=== PATIENT | female | born 1960 | race Caucasian/White ===

== ENCOUNTER 2018-10-29 12:23 | Emergency (ER) | payer OTHER ==
[~2018-10-29] VITALS: Ht 157.5 cm; Wt 72.6 kg
[~2018-10-29 12:23] MED LIST: ACETAMINOPHEN; ALBIPROI INH; ALBU90I INH; ALBU90OI INH; AMOX500 PO; ATOR10; ATOR20 PO; AZIT250 PO; AZIT500 PO; BENZ100A PO; Bactrim Ds Tab1 EACH PO; CHLO500T PO; CLAR500 PO; CLIN150 PO; CODGUAEL PO; CRUTCH4 USE; CYCL10 PO; Cheratussin AC118 ML PO; FERR325 PO; FLUSAL1005 IH; FURO20 PO; FURO40; GUAI120S1 PO; HYDACE10B PO; HYDACE5 PO; HYDACE7.5 PO; HYDCHL12.5 PO; HYDCHL25 PO; HYDGUAL120 PO; LEVFLO500 PO; LORA1; LOSA25 PO; METO50; METR500; MUPI1NAS; Norco 5-325 Ta1 EACH PO; OXYACE5T; OXYACE7.5T PO; OXYCODONE; POTCHL20ER; POTCHL20ER PO; PRED20 PO; PROC10; PROCODE120 PO; Prednisone20 MG PO; SPACER IH; SULTRIDS PO; TRAM50 PO; Zithromax250 MG PO
[2018-10-29] MEDS ORDERED: LOSA25 PO (13:55)
== END 2018-10-29 13:59 | disposition home or self-care (01) ==
LOC: ER 12:23
DX: S00.83XA Contusion of other part of head, initial encounter (principal); I10 Essential (primary) hypertension; I25.10 Atherosclerotic heart disease of native coronary artery without angina pectoris; J45.909 Unspecified asthma, uncomplicated; Z79.899 Other long term (current) drug therapy; Z87.891 Personal history of nicotine dependence; W18.2XXA Fall in (into) shower or empty bathtub, initial encounter; Y92.002 Bathroom of unspecified non-institutional (private) residence as the place of occurrence of the external cause
CPT/HCPCS: 70450; 99284-25

== ENCOUNTER 2021-02-20 16:34 | Inpatient (IN) | payer OTHER ==
[~2021-02-20] VITALS: Ht 157.5 cm; Wt 71.0 kg
[2021-02-20 17:24] LABS: Base Excess Venous -9.7 mmol/L; Bicarbonate Venous 17.4 mmol/L (24.0-30.0); PCO2 Venous 33.2 mmHg (38-42); PO2 Venous 58.6 mmHg (38-42); pH Blood Venous 7.31 (7.34-7.37)
[2021-02-20 18:41] LABS: BASOPHILS ABSOLUTE AUTO 0.03 K/mm3 (0.00-0.23); BASOPHILS PERCENT AUTO 0 % (0-2); EOSINOPHILS PERCENT AUTO 0 % (0-6); Hematocrit 43.8 % (33.0-51.0); IMMATURE GRAN ABSOLUTE AUTO 0.13 K/mm3 (0.00-0.10); IMMATURE GRAN PERCENT AUTO 1 % (0-1); LYMPHOCYTES ABSOLUTE AUTO 0.76 K/mm3 (0.84-5.20); LYMPHOCYTES PERCENT AUTO 6 % (21-46); MONOCYTES ABSOLUTE AUTO 1.03 K/mm3 (0.16-1.47); MONOCYTES PERCENT AUTO 8 % (4-13); Mean Corpuscular HGB 30.8 pg (26.0-34.0); Mean Corpuscular Volume 96 fL (80-100); Mean Platelet Volume 10.5 fL (9.1-12.4); NEUTROPHILS PERCENT AUTO 85 % (41-73); Platelet Count 263 K/mm3 (150-400); RDW Coefficient Variation 13.6 % (11.7-14.2); RDW Standard Deviation 48.5 fL (35.1-46.3); Red Blood Cell Count 4.55 M/mm3 (3.80-5.20); White Blood Cell Count 13.15 K/mm3 (4.00-11.30)
[2021-02-20 18:53] LABS: International Normalized Ratio 1.06; Prothrombin Time Results 11.4 Sec (9.7-11.5)
[2021-02-20 19:09] LABS: Alanine Aminotransfer (ALT/SGP 48 U/L (12-78); Albumin, Blood 3.3 g/dL (3.4-5.0); Albumin/Globulin Ratio 0.5 (0.8-1.8); Alk Phos 134 U/L (50-136); Anion Gap 10 mmol/L (6-16); Aspartate Aminotrans (AST/SGOT 79 U/L (12-37); Bilirubin, Total 0.6 mg/dL (0.1-1.0); Blood Urea Nitrogen 46 mg/dL (8-24); Bun/Creatinine Ratio 17.8 (12.0-20.0); CO2, Blood 20 mmol/L (21-32); Calcium, Blood 9.1 mg/dL (8.5-10.1); Chloride, Blood 109 mmol/L (98-108); Creatinine, Blood 2.58 mg/dL (0.40-1.00); Ethanol (Alcohol), Blood, Med <3 mg/dL; Globulin, Blood 6.8 g/dL (2.2-4.0); Glomerular Filtration Rate 20 (60-); Glucose, Blood 118 mg/dL (70-99); Potassium, Blood 3.4 mmol/L (3.5-5.5); Sodium, Blood 139 mmol/L (136-145); Total Protein, Blood 10.1 g/dL (6.4-8.2)
[2021-02-20 19:10] LABS: Troponin I <0.015 ng/mL (0.000-0.040)
[2021-02-20 19:38] LABS: Source, Urine Catheter
[2021-02-20 19:42] LABS: Bilirubin, Urine Neg (Neg); Blood, Urine 3+ (Neg); Glucose Qualitative, Urine Neg (Neg); Ketones, Urine Neg (Neg); Leukocyte Esterase, Urine 1+ (Neg); Nitrite, Urine Pos (Neg); Protein, Urine 2+ (Neg); Specific Gravity, Urine 1.015 (1.003-1.022); Urobilinogen, Urine 1+ (Normal)
[2021-02-20 19:46] LABS: Appearance, Urine Hazy (Clear); Color, Urine Yellow (P-Yellow)
[2021-02-20 19:48] LABS: Bacteria Many /hpf; Red Blood Cells, Urine 0-2 /hpf (0-2); Squamous Epithelial Cells Few /hpf (Few); White Blood Cells, Urine 25-50 /hpf (0-5)
[2021-02-20 19:52] LABS: U Amphetamine Screen DETECTED; U Barbituate Screen Not Detected; U Benzodiazapine Screen Not Detected; U Buprenorphine Screen Not Detected; U Cannabinoids Screen Not Detected; U Cocaine Screen Not Detected; U Methadone Screen Not Detected; U Methamphetamine Screen DETECTED; U Opiates Screen DETECTED; U Oxycodone Screen Not Detected; U Phencyclidine Screen Not Detected; U Propoxyphene Screen Not Detected
[2021-02-20 20:56] LABS: CPK Creatine Kinase 122 U/L (26-193); Phosphorus, Blood 5.1 mg/dL (2.5-4.9)
--- NOTE | 2021-02-20 23:48 | NUR ---
ASSUMED PT CARE AT 2210 PT ARRIVED FROM ED ON 4L OF OXYGEN. PT MOANING AND GOANING, BUT NOT FORMING ANY WORDS. DAUGHTER CONCERNED PT HAD A STROKE. PT IS ABLE TO OCCASIONALLY SAY ONE WORD, BUT DOES NOT SPEAK IN ANY SENTENCES. SHE IS UNABLE TO FOLLOW ANY COMMANDS OR DIRECTIONS; THEREFORE, DID NOT ADMINISTER ANY PO MEDICATIONS PER ORDERS. PT STATED SHE HAD TO URINATE UPON ARRIVAL; THEREFORE, PT TRANFSERRED TO BSC. PT VERY DIFFICULT TO GET OFF BSC TO TRANSFER BACK TO BED; THEREFORE, WILL UTILIZE BEDPAN FROM HERE ON OUT. PT ARRIVED WITH ONE 20G TO JAN; NS INFUSING AT 100MLS/HR. PT NOTED TO BE NSR WITH HR 90'S; ST DEPRESSION. HX OF CABG. PT INCREASED TO 5L OF OXYGEN D/T OXYGEN SATURATION AT 90% WITH ORDERS TO MAINTAIN > THAN 92%. BLUETOOTH PROBE ATTACHED D/T PT IN NEGATIVE PRESSURE ROOM WITH DOUBLE DOORS CLOSED. OXYGEN SATURATIONS AT 95% CURRENTLY. SBP 170'S. WILL HAVE TO CALL FOR PRN IV D/T PT NOT BEING ABLE TO SAFELY SWALLOW. OVERALL PT'S SKIN IS INTACT; HOWEVER, BLE'S HAVE SCARS AND SCATTERED SCABS. OVERALL HYGIENE IS POOR WITH POOR SELF CARE. DAUGHTER STATES THEY HAD A HX OF BED BUG INFESTATION AT HOME A WHILE BACK AGO; THEREFORE, HOUSEKEEPING CALLED FOR STICKY MAT OUTSIDE PT'S DOOR. DAUGHTER TO BEDSIDE TO OBTAIN HEALTH HISTORY INFO. DAUGHTER GIVEN VISITING HOUR INFO AND ROOM INFO. CALL LIGHT WITHIN REACH, BUT PT VERY DISORIENTED. WILL CONTINUE FREQUENT ROUNDS AND VISUAL CHECKS.
[2021-02-21 04:35] LABS: Base Excess Venous -7.8 mmol/L; Bicarbonate Venous 18.9 mmol/L (24.0-30.0); PCO2 Venous 33.7 mmHg (38-42); PO2 Venous 91.8 mmHg (38-42); pH Blood Venous 7.34 (7.34-7.37)
[2021-02-21 04:41] LABS: BASOPHILS ABSOLUTE AUTO 0.03 K/mm3 (0.00-0.23); BASOPHILS PERCENT AUTO 0 % (0-2); EOSINOPHILS PERCENT AUTO 0 % (0-6); Hematocrit 34.4 % (33.0-51.0); Hemoglobin 11.3 g/dL (11.5-16.0); IMMATURE GRAN ABSOLUTE AUTO 0.13 K/mm3 (0.00-0.10); IMMATURE GRAN PERCENT AUTO 1 % (0-1); LYMPHOCYTES ABSOLUTE AUTO 1.54 K/mm3 (0.84-5.20); LYMPHOCYTES PERCENT AUTO 10 % (21-46); MONOCYTES ABSOLUTE AUTO 1.25 K/mm3 (0.16-1.47); MONOCYTES PERCENT AUTO 8 % (4-13); Mean Corpuscular HGB 30.5 pg (26.0-34.0); Mean Corpuscular HGB Conc 32.8 g/dL (31.5-36.5); Mean Corpuscular Volume 93 fL (80-100); Mean Platelet Volume 10.8 fL (9.1-12.4); NEUTROPHILS ABSOLUTE AUTO 12.12 K/mm3 (1.96-9.15); NEUTROPHILS PERCENT AUTO 80 % (41-73); Platelet Count 218 K/mm3 (150-400); RDW Coefficient Variation 13.5 % (11.7-14.2); RDW Standard Deviation 46.3 fL (35.1-46.3); Red Blood Cell Count 3.71 M/mm3 (3.80-5.20); White Blood Cell Count 15.07 K/mm3 (4.00-11.30)
--- NOTE | 2021-02-21 04:54 | NUR ---
END OF SHIFT SUMMARY NO SIGNIFICANT CHANGES SINCE LAST ENTRY. PT HAS REMAINED ON 5L OF OXYGEN VIA NC TONIGHT. SHE OPENS EYES SPONTANEOUSLY, MOANS/GROANS, STATES WORDS OCCASIONALLY, AND DOES NOT FOLLOW COMMANDS. VSS, SEE FLOWSHEET. PT HAS BEEN UTILIZING BEDPAN TO URINATE; HOWEVER, WAS NOTED TO BE INCONTINENT DURING MOST RECENT ROUNDS. NS CONTINUES INFUSING AT 150MLS/HR X1 BAG, WHICH IS ALMOST EMPTY. PT REMAINS UNSAFE TO SWALLOW AT THIS TIME D/T DECREASED MENTATION AND THE INABILITY TO FOLLOW DIRECTION. CALL LIGHT IS WITHIN REACH; HOWEVER, PT REQUIRES FREQUENT ROUNDING/VISUAL CHECKS D/T DECREASED MENTATION. WILL CONTINUE TO MONITOR UNTIL REPORT IS HANDED OFF TO ONCOMING RN.
[2021-02-21 05:05] LABS: Albumin, Blood 2.5 g/dL (3.4-5.0); Albumin/Globulin Ratio 0.5 (0.8-1.8); Bilirubin, Total 0.5 mg/dL (0.1-1.0); Bun/Creatinine Ratio 24.8 (12.0-20.0); Calcium, Blood 7.9 mg/dL (8.5-10.1); Creatinine, Blood 1.49 mg/dL (0.40-1.00); Globulin, Blood 5.2 g/dL (2.2-4.0); Potassium, Blood 3.2 mmol/L (3.5-5.5)
[2021-02-21 05:47] LABS: Total Protein, Blood 7.7 g/dL (6.4-8.2)
--- NOTE | 2021-02-21 06:52 | NUR ---
REASSESSMENT BED ALARM WAS NOTED TO BE GOING OFF. UPON ATTEMPTING TO GOWN UP TO ENTER ROOM PT NOTED TO BE CLIMBING OVER SIDE RAIL AND WALKING AROUND ROOM. UPON ENTERING PT NOTED TO HAVE UNSTEADY GAIT WITH HIGH RISK OF FALLING. PT ASSISTED TO BSC TO VOID. SPEECH HAS GOTTEN A LOT BETTER, BUT STILL NOT SPEAKING IN FULL SENTENCES. PT STILL UNABLE TO MAKE HER NEEDS KNOWN AND DOES NOT UTILIZE CALL LIGHT APPROPRIATELY; THEREFORE, DR. HAILE CALLED WITH ORDERS FOR NILSON VEST D/T HIGH FALL RISK.
--- NOTE | 2021-02-21 17:55 | NUR ---
SHIFT ASSESMENT; ASSUMED CARE AT 0700, REPORT FROM VASILE JIMENEZ. AGITATED AT START OF SHIFT. PULLING AT LINES, NILSON VEST IN PLACE. UNABLE TO REDIRECT. BILATERAL WRIST RESTRAINTS PLACED. POWERGLIDE PLACED TO ERNESTO DURING SHIFT. MEDICATED WITH ATIVAN FOR AGITATION. REPOSITIONS SELF IN BED NEEDED. ATTENDS IN PLACE. UP TO BEDSIDE COMMODE X1 WITH 2 PERSON ASSIST. SLEEPS THROUGHOUT MOST OF AFTERNOON, WAKES TO VERBAL STIMULI. O2 WEANED TO RA BY RT. SATS MAINTAINED AT 92-95% ON RA. WILL CONTINUE TO MONITOR AND TREAT UNTIL CHANGE OF SHIFT.
--- NOTE | 2021-02-22 06:21 | NUR ---
SHIFT SUMMARY PT AOX3 WHEN THIS RN AT BEDSIDE WITH PT, WHEN OUT OF ROOM PT HAS DEMONSTRATED SHE FORGETS EDUCATION ON USE OF CALL LIGHT. PT IN RESTRAINTS THROUGH NEARLY ENTIRE SHIFT, THIS RN DC RESTRAINTS WHEN PT ALERT AND REQUESTING TO ROLL ONTO SIDE TO SLEEP. PT CONTRACTED FOR SAFETY. PT SET OFF BED ALARM AND HAD GOTTEN UP TO BED ON HER OWN W/O CALLING. STATED SHE FORGOT HOW TO CALL THE NURSE. THIS RN CALLS DR HAILE FOR NEW RESTRAINT ORDER. PT BACK IN RESTRAINT. BED ALARM ACTIVE. SATS 93-96% ON RA T/O SHIFT. WAS REQUESTING SOMETHING FOR SLEEP BUT SLEPT HEAVILY W/O MED GIVEN. SOME DYSPNEA WITH EXERTION WHEN UP IN ROOM. SALINE LOCKED.
[2021-02-22 09:56] LABS: Hematocrit 34.9 % (33.0-51.0); Hemoglobin 11.5 g/dL (11.5-16.0); Mean Corpuscular HGB 30.3 pg (26.0-34.0); Mean Corpuscular Volume 92 fL (80-100); Mean Platelet Volume 10.9 fL (9.1-12.4); Platelet Count 257 K/mm3 (150-400); RDW Coefficient Variation 13.3 % (11.7-14.2); RDW Standard Deviation 45.1 fL (35.1-46.3); Red Blood Cell Count 3.79 M/mm3 (3.80-5.20); White Blood Cell Count 14.02 K/mm3 (4.00-11.30)
[2021-02-22 10:56] LABS: Albumin, Blood 2.5 g/dL (3.4-5.0); Anion Gap 12 mmol/L (6-16); Blood Urea Nitrogen 33 mg/dL (8-24); CO2, Blood 18 mmol/L (21-32); Calcium, Blood 8.2 mg/dL (8.5-10.1); Chloride, Blood 109 mmol/L (98-108); Creatinine, Blood 0.87 mg/dL (0.40-1.00); Glomerular Filtration Rate >60 (60-); Glucose, Blood 129 mg/dL (70-99); Phosphorus, Blood 1.9 mg/dL (2.5-4.9); Potassium, Blood 2.9 mmol/L (3.5-5.5); Sodium, Blood 139 mmol/L (136-145)
--- NOTE | 2021-02-22 17:17 | NUR ---
SHIFT SUMMARY PT ALERT AND ORIENTED THIS SHIFT. PT ANXIOUS AT TIMES. VS STABLE. O2 SATS REMAIN ABOVE 90% ON RA. BP STABLE. HR HAS BEEN NSR, BUT TELEMETRY HAS BEEN DISCONTINUED. RESTRAINTS REMOVED THIS AFTERNOON AND PT INSTRUCTED TO USE THE CALL LIGHT BEFORE AMBULATING. PT NOT ALWAYS FOLLOWING DIRECTIONS, BUT BED ALARM IS ON FOR SAFETY. WILL CONTINUE TO MONITOR AND REPORT TO ONCOMING RN. CALL LIGHT IN REACH
[2021-02-23 04:25] LABS: Albumin, Blood 2.7 g/dL (3.4-5.0); Anion Gap 11 mmol/L (6-16); Blood Urea Nitrogen 31 mg/dL (8-24); Bun/Creatinine Ratio 35.8 (12.0-20.0); CO2, Blood 18 mmol/L (21-32); Calcium, Blood 8.4 mg/dL (8.5-10.1); Chloride, Blood 110 mmol/L (98-108); Creatinine, Blood 0.87 mg/dL (0.40-1.00); Glomerular Filtration Rate >60 (60-); Glucose, Blood 127 mg/dL (70-99); Phosphorus, Blood 2.3 mg/dL (2.5-4.9); Sodium, Blood 139 mmol/L (136-145)
--- NOTE | 2021-02-23 05:26 | NUR ---
DOCTOR CALL THIS RN CALLS DR HAILE REGARDING PT K 3.0 AND CONTINUED AGITATION FOLLOWING MEDS PER ORDERS AND RESTRAINTS. ORDERS TO BE PLACED BY DR HAILE.
--- NOTE | 2021-02-23 07:20 | NUR ---
SHIFT SUMMARY PT AOX3 AT START OF SHIFT, UP FROM BED W/O CALLING MULTIPLE TIMES, EDUCATED ON USE OF CALL LIGHT. CONTINUED UP IN BED W/O CALLING. SOME DYSPNEA WITH EXERTION WHEN UP FROM BED. LSCTA. SATS GREATER THAN 95% STEADILY THROUGH SHIFT ON RA. PT INCREASINGLY CONFUSED AND STUMBLING OUT OF BED SETTING OFF BED ALARM. MEDICATED WITH ORDERED ATIVAN WITH LITTLE IMPROVEMENT. THIS RN CALLED DR HAILE FOR ORDER FOR RESTRAINTS AND SOMETHING MORE FOR AGITATION IF 2ND DOSE OF PRN ATIVAN HAD NO EFFECT. HALDOL 2.5 MG IV GIVEN AFTER LITTLE EFFECT FOLLOWING SECOND DOSE OF ATIVAN AND PT PULLING AGAINST RESTRAINTS AND CUSSING. PT CONTINUED PULLING AND FIGHTING IN RESTRAINTS. YELLING OUT FOR HER . WHEN THIS RN ATTEMPTED ORIENTING PT, PT WOULD VERBALIZE UNDERSTANDING AND THEN CONTINUE YELLING OUT AND PULLING ON RESTRAINTS. PT APPEARED TACHYPNEIC AFTER CONTINUED FIGHTING AGAINST RESTRAINTS. DR HAILE CALLED AND NOTIFIED OF POTASSIUM AND CONTINUED AGITATION. PT GIVEN ORDERED XANAX, HAD SOME DIFFICULTY WITH LAST HALF OF POTASSIUM, ONLY 30 MEQ GIVEN. PT INCONTINENT OF URINE, LINENS CLEANED AND PT CHANGED INTO CLEAN ATTENDS. PT AGITATED WHEN BACK IN RESTRAINTS. APPEARS SOMNOLENT DESPITE PULLING ON RESTRAINTS. PT HAD ALSO HAD AN EPISODE OF PULLING ON POWERGLIDE LINE D/T CONFUSION. POWERGLIDE IN ERNESTO SALINE LOCKED.
--- NOTE | 2021-02-23 09:18 | NUR ---
PHYSICIAN NOTIFIED PHYSICIAN NOTIFIED OF PT'S CURRENT CONFUSED STATE. PT ATTEMPTING TO CRAWL OUT OF BED, NOT DIRECTABLE. UNABLE TO STATE CURRENT LOCATION. PT UNABLE TO TOLERATE PO MEDICATIONS AT THIS ITME D/T CONFUSED STATE. HOLDING PO MEDICATIONS AT THIS TIME PER PHYSICIAN ORDER. WILL ATTEMPT TO GIVE PT PO MEDICATIONS IF/WHEN PT BECOMES MORE ALERT.
[2021-02-23 09:22] LABS: Hemoglobin 13.6 g/dL (11.5-16.0); Mean Corpuscular HGB 31.1 pg (26.0-34.0); Mean Corpuscular Volume 91 fL (80-100); Mean Platelet Volume 10.7 fL (9.1-12.4); Platelet Count 294 K/mm3 (150-400); RDW Coefficient Variation 13.8 % (11.7-14.2); RDW Standard Deviation 46.8 fL (35.1-46.3); Red Blood Cell Count 4.38 M/mm3 (3.80-5.20); White Blood Cell Count 29.48 K/mm3 (4.00-11.30)
--- NOTE | 2021-02-23 12:20 | NUR ---
FAMILY UPDATE UPDATED PT'S DAUGHTER ON PT. DAUGHTER STATED HER MOM SEEMS TO "WANDER AT NIGHT" IN THEIR HOUSEHOLD. SHE ALSO STATED PT "REPEATS SELF FREQUENTLY."
--- NOTE | 2021-02-23 17:44 | NUR ---
SHIFT SUMMARY PT ALERT AND ORIETED X 1. PT IN SOFT WRIST RESTRAINTS AND NILSON VEST. ORDERED PER PHYSICIAN. RESTRAINT MANAGMENT Q 2. PT OFFERED PO FLUIDS TOLERATED. PT UNABLE TO TOLERATE PO FOOD AT THIS TIME. PT NOT DIRECTABLE. PT INCONTINENT OF URINE AND STOOL. DEPENDS IN PLACE. PT ALERT TO SELF ONLY. PHYSICIAN NOTIFIED THAT PT'S DAUTHER STATED PT "USES METH AND HEROIN." PT MOANS IN RESPONSE TO QUSETIONS. BED ALARM IN PLACE. WILL CONT TO MONITOR UNTIL REPORT GIVEN TO NIGHTSHIFT RN.
--- NOTE | 2021-02-23 18:28 | NUR ---
PHYSICIAN UPDATED PHYSICIAN NOTIFIED OF PT'S INCREASE IN TACHYPNIC STATE. PHYSICIAN ORDERS FOR ABG AND FENTANYL FOR WITHDRAWL/PAIN.
[2021-02-23 19:09] LABS: PCO2 Arterial 18.9 mmHg (35-45); PO2 Arterial 49.3 mmHg (80-100)
--- NOTE | 2021-02-23 19:35 | NUR ---
PHYSICIAN UPDATED PHYSICIAN UPDATED ON PT'S TACHYPNIC STATE. PHYSICIAN AWARE OF PT'S ANXIOUS STATE. MEDICATION ORDERED PER PHYSICIAN FOR POSSIBLE WITHDRAWL/PAIN. WILL INFORM NIGHTSHIFT RN.
[2021-02-24 04:04] LABS: BASOPHILS ABSOLUTE AUTO 0.04 K/mm3 (0.00-0.23); BASOPHILS PERCENT AUTO 0 % (0-2); EOSINOPHILS PERCENT AUTO 0 % (0-6); Hemoglobin 13.8 g/dL (11.5-16.0); IMMATURE GRAN PERCENT AUTO 1 % (0-1); LYMPHOCYTES ABSOLUTE AUTO 1.16 K/mm3 (0.84-5.20); LYMPHOCYTES PERCENT AUTO 5 % (21-46); MONOCYTES ABSOLUTE AUTO 1.97 K/mm3 (0.16-1.47); MONOCYTES PERCENT AUTO 8 % (4-13); Mean Corpuscular HGB 30.9 pg (26.0-34.0); Mean Corpuscular HGB Conc 34.5 g/dL (31.5-36.5); Mean Corpuscular Volume 90 fL (80-100); Mean Platelet Volume 10.5 fL (9.1-12.4); NEUTROPHILS ABSOLUTE AUTO 21.69 K/mm3 (1.96-9.15); NEUTROPHILS PERCENT AUTO 86 % (41-73); Platelet Count 420 K/mm3 (150-400); RDW Coefficient Variation 13.4 % (11.7-14.2); RDW Standard Deviation 43.8 fL (35.1-46.3); Red Blood Cell Count 4.47 M/mm3 (3.80-5.20); White Blood Cell Count 25.16 K/mm3 (4.00-11.30)
[2021-02-24 04:25] LABS: Albumin, Blood 2.9 g/dL (3.4-5.0); Anion Gap 11 mmol/L (6-16); Blood Urea Nitrogen 30 mg/dL (8-24); Bun/Creatinine Ratio 31.7 (12.0-20.0); CO2, Blood 17 mmol/L (21-32); Calcium, Blood 8.9 mg/dL (8.5-10.1); Chloride, Blood 114 mmol/L (98-108); Creatinine, Blood 0.95 mg/dL (0.40-1.00); Glomerular Filtration Rate >60 (60-); Glucose, Blood 130 mg/dL (70-99); Phosphorus, Blood 2.5 mg/dL (2.5-4.9); Potassium, Blood 2.9 mmol/L (3.5-5.5); Sodium, Blood 142 mmol/L (136-145)
--- NOTE | 2021-02-24 06:33 | NUR ---
SHIFT SUMMARY PT RESPONDS WITH MOANS TO VERBAL STIMULI SOMETIMES ANSWERS WITH YES, WILL ONLY OPEN EYES FOR A SECOND. PATIENT NOT ANSWERING APPROPRIETELY. PATIENT KICKING LEGS, SQUIRMING, MOANING, AND RR IN THE 40s AT BEGINNING OF SHIFT AFTER BEING GIVEN HALDOL AND FENTANYL, ONE TIME DOSE OF DILAUDID GIVEN AND PATIENT RELAXED RR IMPROVED TO THE 30s AND SATS WENT UP FROM 93% TO 97% 02 ON RA. PATIENT IN WRIST RESTRAINTS WHICH SHE STILL ATTEMPTS TO GET OUT OF BED. Q2 HOUR TURNS. DID NOT GIVE PO MEDS DUE TO RR AND PATIENT UNABLE TO FOLLOW INSTRUCTIONS SUCH OPENING HER EYES. GAVE ORDERED FENTANYL AND HALDOL WHICH SEEM TO HAVE LITTLE EFFECT WITH AGITATION/DISCOMFORT. 02 SATS CURRENTLY 93% ON RA. CALL LIGHT IN REACH. BED ALARM ON.
--- NOTE | 2021-02-24 08:16 | NUR ---
PHYSICIAN UPDATED PHYSICIAN NOTIFIED THAT PT IS NOT RESPONDING TO VERBAL STIMULI AND NOT DIRECTABLE. PT'S PUPILS CONSTRICT WHEN SHINING PEN LIGHT. PUPILS CONTINUE TO PULSATE WHEN PEN LIGHT REMOVED. NO NEW ORDERS AT THIS TIME.
[2021-02-24 08:44] LABS: PO2 Arterial 58.6 mmHg (80-100); pH Blood Arterial 7.48 (7.35-7.45)
[2021-02-24 08:45] LABS: PCO2 Arterial 19.5 mmHg (35-45)
--- NOTE | 2021-02-24 11:57 | NUR ---
RESTRAINT D/C D/C'ING SOFT WRIST RESTRAINTS. ORDERS TO KEEP NILSON VEST ON AT THIS TIME.
--- NOTE | 2021-02-24 18:35 | NUR ---
SHIFT SUMMARY PT ALERT AND ORIENTED TO SELF. AWARE OF WHEN HE IS AT BEDSIDE. NOT DIRECTABLE. WILL ANSWER IN ONE WORD ANSWERS AT TIMES. PT AGGITATED, ATTEMPTING TO CLIMB OUT OF BED AND PULL AT LINES T/O SHIFT. PT PULLING OFF OXYGEN. PHYSICIAN AWARE. PT NOT ON OXYGEN AT THIS TIME. OXYGEN SATURATION MAINTAINED ABOVE 92% ON RA. PHYSICIAN NOTIFIED OF CRITICAL ABG THIS AM, SEE EHR. INFORMED THIS RN THAT PT'S SISTER AND MOTHER HAD BRAIN TUMORS, PHYSICIAN NOTIFIED. NO NEW ORDERS D/T RECENT CT SCAN. ORDERS CHANGED FOR WITHDRAWL/AGGITATION IN EMAR PER PHYSICIAN. PT NOW ON CAMERA D/T CONFUSED STATE. DEPENDS IN PLACE FOR INCONTINENCE. PT UNABLE TO TOLERATE PO FOOD/PILLS AT THIS TIME. PHYSICIAN AWARE. PT HAS LIMITED PO LIQUID INTAKE D/T CONFUSION/WEAKNESS. PHYSICIAN AWARE. HR STABLE. BP STABLE. NILSON VEST RESTRAINT MANAGED Q 2 HRS. WILL CONT TO MONITOR UNTIL REPORT GIVEN TO NIGHTSHIFT RN.
--- NOTE | 2021-02-25 06:41 | NUR ---
SHIFT SUMMARY PATIENT IS ALERT BUT WILL NOT ANSWER MY QUESTIONS, OCCASIONALLY ANSWERS YES. UNABLE TO REDIRECT. NILSON VEST IN PLACE DUE TO PATIENT BEING HIGH FALL RISK TRYING TO GET OUT OF BED, CAMERA ON. 02 SATS 96% ON 2L NC. RR RANGING FROM 30s-40s. MEDICATED FOR WITHDRAWAL/PAIN PER EMAR. VSS, NO ACUTE CHANGES. CALL LIGHT IN REACH, BED ALARM ON.
[2021-02-25 11:15] LABS: Magnesium, Blood 2.1 mg/dL (1.6-2.4)
[2021-02-25 11:16] LABS: Albumin, Blood 2.8 g/dL (3.4-5.0); Anion Gap 10 mmol/L (6-16); Blood Urea Nitrogen 37 mg/dL (8-24); Bun/Creatinine Ratio 37.5 (12.0-20.0); CO2, Blood 16 mmol/L (21-32); Calcium, Blood 8.9 mg/dL (8.5-10.1); Chloride, Blood 124 mmol/L (98-108); Creatinine, Blood 0.99 mg/dL (0.40-1.00); Glomerular Filtration Rate >60 (60-); Glucose, Blood 138 mg/dL (70-99); Phosphorus, Blood 2.7 mg/dL (2.5-4.9); Potassium, Blood 3.1 mmol/L (3.5-5.5); Sodium, Blood 150 mmol/L (136-145)
--- NOTE | 2021-02-25 13:33 | NUR ---
SHIFT SUMMARY; REPORT TO MANJEET IN ICU FOR IN HOUSE TRANSFER. NILSON WATTST REMAINS INPLACE, CONTINUES TO FLAIL IN BED DESPITE MEDS. RR INCREASED TO 40 BPM, 02 2L VIA NC. PULLS O2 OFF WHEN NOT IN ROOM AND KICKS LEGS UNTIL SAT MONITOR IS UNABLE TO READ. ASSESSED BY DR. CAMPOS. IN HOUSE TRANSFER INITATED. ATTEMPTED TO CALL [facility] FOR A UPDATE [phone], UNABLE TO LEAVE VOICE MAIL DUE TO VOICEMAIL BOX BEING FULL.
--- NOTE | 2021-02-25 14:52 | NUR ---
TO ICU 6 FROM PCU REPORT RECEIVED, PT TO ICU 6 AT 1335, IS FLAILING ARMS AND CONFUSED, MOANING BUT NOT COMMUNICATING EFFECTIVELY, DOES NOT FOLLOW DIRECTION. HR 110'S, BP ELEVATED, SPO2 80'S. O2 INCREASED TO 4L/NC, PRECEDEX INITIATED, BILAT WRIST RESTRAINTS PLACED. PT CALMED SHORTLY AFTER PRECEDEX, SPO2 INCREASED TO 94%, RR 30'S SHALLOW, HR 70'S SINUS. BP BECAME HYPOTENSIVE WITH PRECEDEX, TITRATING TO EFFECT AND TO KEEP BP STABLE. LS WITH EXP WHEEZES IN UPPER LOBES, DIMINISHED T/O, NO COUGH NOTED AT THIS TIME. POWER GLIDE FLUSHES EASILY, ZITHROMAX INFUSING PER ORDERS. IN TO SEE PATIENT, GIVEN UPDATE. PT RESTING WITH EYES CLOSED, RESPONDS TO ORAL CARE BY MOANING AND GRIMACING, NO OTHER ATTEMPTS AT COMMUNICATION MADE. WILL TITRATE PRECEDEX DOWN ABLE.
[2021-02-25 17:27] LABS: PCO2 Arterial 24.9 mmHg (35-45); PO2 Arterial 50.9 mmHg (80-100); pH Blood Arterial 7.39 (7.35-7.45)
--- NOTE | 2021-02-25 18:13 | NUR ---
END OF SHIFT PT RESTED WELL AFTER PRECEDEX, THEN BECAME AGITATED AGAIN THIS EVENING BUT WAS ABLE TO VERBALIZE THAT SHE WAS HAVING PAIN, VERBALIZATIONS REMAIN MINIMAL, PT DOES NOT FOLLOW DIRECTIONS. MEDICATED WITH DILAUDID PER ORDERS, IS NOW RESTING WITH EYES CLOSED, NO RESTLESSNESS NOTED. LS WHEEZY INTERMITTENTLY THIS SHIFT, OCCASIONAL COUGH NOTED. ABG DRAWN, OXYGEN INCREASED TO 6L/OXYMIZER, SPO2 >95% WHILE RESTING. D5W AND POTASSIUM INFUSING PER ORDERS. HR 62, BP HYPOTENSIVE AFTER DILAUDID, PRECEDEX DECREASED TO 0.2MCG. ATTEMPTED PERIPHERAL IV START WITHOUT SUCCESS. RESTRAINTS REMAIN IN PLACE PT IS ANXIOUS AND AGITATED UPON WAKING AND DOES NOT FOLLOW DIRECTION.
--- NOTE | 2021-02-25 19:58 | NUR ---
ASSUMED PT CARE FROM VASILE BURROUGHS AT 1900 PT SLEEPING IN BED. AROUSABLE TO NOXIOUS AND VERBAL STIMULI. UNABLE TO ASSESS MENTATION PT IS NOTED TO ONLY BE MAKING SOUNDS. DOES NOT FOLLOW COMMANDS OR DIRECTIONS; INSTEAD MOANS/GROANS AND OCCASIONALLY WILL SAY ONE WORD. PT APPEARS TO BE VERY RESTLESS IN BED. BILATERAL SOFT WRIST RESTRAINTS REMAIN IN PLACE D/T PT ATTEMPTING TO PICK AND PULL AT LINES. PRECEDEX INFUSING AT 0.2MCG/KG/HR TO POWERGLIDE IN RIGHT UPPER ARM. D5W AT 60MLS/HR. NS TKO WITH PIGGYBACK ANTIBIOTICS. PT HAS AN ATTENDS IN PLACE THAT IS DRY AT THIS TIME. WILL CONTINUE TO ROUND TO ASSESS URINARY AND BOWEL NEEDS. PT IS ON 6L OF OXYGEN VIA OXYMIZER WITH SPO2 95%. VSS, SEE FLOWSHEET. WHEN PT IS AGITATED HER HR IS 60-80'S; HOWEVER, WHEN RESTING ON PRECEDEX SHE IS NARAYAN WITH HR IN THE 50'S. PT IS UNABLE TO MAKE HER NEEDS KNOWN D/T DECREASED LEVEL OF CONSCIOUSNESS. WILL CONTINUE TO ROUND AND REASSESS.
[2021-02-25 21:51] LABS: U Amphetamine Screen Not Detected; U Barbituate Screen Not Detected; U Benzodiazapine Screen DETECTED; U Buprenorphine Screen Not Detected; U Cannabinoids Screen Not Detected; U Cocaine Screen Not Detected; U Methadone Screen Not Detected; U Methamphetamine Screen Not Detected; U Opiates Screen DETECTED; U Oxycodone Screen Not Detected; U Phencyclidine Screen Not Detected; U Propoxyphene Screen Not Detected
[2021-02-25 23:37] LABS: Source, Urine Catheter
[2021-02-25 23:40] LABS: Appearance, Urine Clear (Clear); Bilirubin, Urine Neg (Neg); Blood, Urine 2+ (Neg); Color, Urine Yellow (P-Yellow); Glucose Qualitative, Urine Neg (Neg); Ketones, Urine Neg (Neg); Leukocyte Esterase, Urine Neg (Neg); Nitrite, Urine Neg (Neg); Protein, Urine 2+ (Neg); Urobilinogen, Urine NORM (Normal); pH, Urine 6.5 (5.0-8.0)
--- NOTE | 2021-02-25 23:46 | NUR ---
REASSESSMENT PT WAS HOLLERING OUT FROM ROOM. VERY RESTLESS KICKING LEGS AROUND IN BED. PULLING OUT OXYGEN BY LEANING OVER TO HAND IN RESTRAINT AND PULLING OFF THE O2. PT REMAINS NONVERBAL AND ONLY SAYING, "SHIT", "HELP ME", BUT NOTHING ELSE. UNABLE TO COMMUNICATE WHAT SHE NEEDS. INSTEAD SHE IS PULLING ON RESTRAINTS AND THRASHING AROUND IN BED. PRECEDEX INCREASED FROM 0.5 TO 0.7 MCG/KG/HR. PT CONTINUED BEHAVIORS FOR 10 MINUTES. SARAH BETH MCDANIEL CALLED FOR DOSE ADJUSTMENT WITH ATIVAN. NEW ORDERS TO ADMINISTER ATIVAN 1-2MG Q2 HOURS PRN, ZYPREXA 10MG IM Q6 PRN, PLACEMENT OF URINE CATHETER FOR RETENTION AND TO MONITOR I/O'S, WELL ORDERS TO INCREASE PRECEDEX TO 1.4MCG/KG/HR IF NEEDED. INCREASED PRECEDEX TO 1.4 MCG/KG/HR. STRAIGHT CATH WAS PERFORMED EARLIER IN ORDER TO OBTAIN U-TOX D/T SUSPICIOUS BEHAVIOR; THEREFORE, CATH LEFT IN PLACE TO EMPTY BLADDER TO SEE IF BEHAVIORS WERE RELATED TO RETENTION/INABILITY TO COMMUNICATE URINATION NEEDS. PT MEDICATED WITH ATIVAN 2MG WITH POSITIVE RESULTS; THEREFORE, DECREASED PRECEDEX BACK TO 0.7 MCG/KG/HR. VSS, SEE FLOWSHEET.
[2021-02-25 23:50] LABS: Bacteria Few /hpf; Mucus Light (0-Heavy); Red Blood Cells, Urine 0-2 /hpf (0-2); Squamous Epithelial Cells Few /hpf (Few); White Blood Cells, Urine 0-2 /hpf (0-5)
--- NOTE | 2021-02-26 02:54 | NUR ---
REASSESSMENT PT RESTS WELL FOR SHORT PERIODS OF TIME AFTER BEING MEDICATED WITH ATIVAN OR ZYPREXA PER ORDERS; HOWEVER, VERY SHORT LIVED AND PT WILL WAKE UP HYPERVENTILATING; RESP RATE NOTED TO BE 40-50'S. PT STILL NOTED TO HAVE DECREASED LOC AND NOT FOLLOWING ANY COMMANDS OR DIRECTIONS. CONTINUES TO MOAN/GROAN AND MAKE NOISES. OXYGEN SATURATION DROPPED TO HIGH 80'S ON 7L VIA OXYMIZER. THEREFORE, INCREASED TO 11L AND CALLED RT TO REASSESS RESPIRATORY STATUS. PT APPEARS VERY DRY; ORAL MUCOSA DRY; 300CC TOTAL OF URINE OUTPUT SINCE MARC WAS PLACED AT 2114. WILL CONTINUE TO MONITOR I/O STATUS.
[2021-02-26 05:09] LABS: Hematocrit 38.4 % (33.0-51.0); Hemoglobin 12.8 g/dL (11.5-16.0); Mean Corpuscular HGB 31.1 pg (26.0-34.0); Mean Corpuscular HGB Conc 33.3 g/dL (31.5-36.5); Mean Corpuscular Volume 93 fL (80-100); Mean Platelet Volume 10.6 fL (9.1-12.4); Platelet Count 321 K/mm3 (150-400); RDW Coefficient Variation 14.1 % (11.7-14.2); RDW Standard Deviation 47.9 fL (35.1-46.3); Red Blood Cell Count 4.12 M/mm3 (3.80-5.20); White Blood Cell Count 22.68 K/mm3 (4.00-11.30)
[2021-02-26 05:27] LABS: Albumin, Blood 2.4 g/dL (3.4-5.0); Albumin/Globulin Ratio 0.4 (0.8-1.8); Bilirubin, Total 0.6 mg/dL (0.1-1.0); Bun/Creatinine Ratio 41.6 (12.0-20.0); Calcium, Blood 8.7 mg/dL (8.5-10.1); Creatinine, Blood 1.13 mg/dL (0.40-1.00); Globulin, Blood 5.5 g/dL (2.2-4.0); Potassium, Blood 3.2 mmol/L (3.5-5.5); Total Protein, Blood 7.9 g/dL (6.4-8.2)
--- NOTE | 2021-02-26 05:43 | NUR ---
END OF SHIFT SUMMARY NO SIGNIFICANT CHANGES SINCE LAST ENTRY. PRECEDEX IS AT 0.7 MCG/KG/HR, WHICH APPEARS TO BE EFFECTIVE. PT IS NARAYAN WITH HR 40'S. BP'S STABLE, SEE FLOWSHEET. SHE IS ON 9L OF OXYGEN VIA OXYMIZER WITH SPO2 94%. RR 30'S; HOWEVER, WHEN PT WAKES UP AND BECOMES AGITATED HER RR 40-50'S. PT REMAINS NONVERBAL WHEN SHE IS AWAKE; RATHER, SHE THRASHES IN BED, KICKING HER LEGS, AND FLAILING HER BODY OVER THE BED. UNABLE TO COMMUNICATE NEEDS. MARC REMAINS PATENT AND DRAINING DARK YELLOW URINE TO GRAVITY; 370CC OUT THIS SHIFT. BILATERAL SOFT WRIST RESTRAINTS REMAIN IN PLACE. WILL CONTINUE TO MONITOR UNTIL REPORT IS HANDED OFF TO ONCOMING RN.
--- NOTE | 2021-02-26 07:40 | NUR ---
ASSUMED CARE: PT RESTING IN BED, 9L NC IN MOUTH. TACHYPNEA NOTED WITH RESPIRATIONS IN 40S-50S, MAINTAINING SAT OF MID 90S. RT AT BEDSIDE GIVING BREATHING TX. PRECEDEX GTT IN PLACE AT 0.7 MCG/KG AT THIS TIME. HR CURRENTLY IN 50S
[2021-02-26 10:33] LABS: PCO2 Arterial 27.4 mmHg (35-45); PO2 Arterial 87.5 mmHg (80-100); pH Blood Arterial 7.34 (7.35-7.45)
--- NOTE | 2021-02-26 11:19 | NUR ---
CALL TO DR CAMPOS TO LET HER KNOW OF PT'S AGITATION AND THAT PT WAS UNABLE TO STAY STILL FOR CT SCAN AT THIS TIME. DR INSTRUCTED TO GIVE 1.5MG OF DILAUDID AND GET AN ABG NOW DUE TO PT'S TACHYPNEA. RT AWARE BUT PT WAS TOO AGITATED TO HOLD STILL. AFTER MEDICATING PT BEGAN TO BECOME LESS WRESTLESS. RT PERFORMED ABG AND CALL TO CT THAT PT WAS CALMED DOWN NOW. PT TAKEN TO CT WITH RN AND LABORER DRYING DEPARTMENT TRANSFER IN BED. PT BACK TO ROOM NOW ON 9L WITH SATURATION 97%. TITRATED PRECEDEX DOWN TO 0.5 DUE TO BRADYCARDIA. CURRENT HR AT 56
--- NOTE | 2021-02-26 13:21 | NUR ---
PT'S CAME BY TO SEE HER AND WAS ORIENTED TO VISITING POLICY. STATES THAT PT HAD MAGNOLIA AND MAGNOLIA VACCINE AT THE END OF JANUARY AND STATES THAT HER SYMPTOMS STARTED [address] CAMPOS IS AWARE OF THIS AND CAME TO SEE PT. PT WAS GIVEN A BEDBATH AND ORAL CARE AND BECAME VERY AGITATED WITH STIMULATION. PRECEDEX TITRATED FOR AGITATION
--- NOTE | 2021-02-26 15:36 | NUR ---
DR CAMPOS SPOKE TO DR PUCKETT ABOUT PT TO MAKE HIM AWARE. DR PUCKETT CAME TO SEE PT AND WISHES FOR ABG AT 1700 TO SEE IF STATUS IS WORSENING. RT AWARE. PT JUST RETURNED FROM CT HEAD. REMAINS ON 0.7 MCG OF PRECEDEX WITH WORK OF BREATHING EASED AFTER 1.5 MG OF DILAUDID.
[2021-02-26 16:49] LABS: PCO2 Arterial 26.2 mmHg (35-45); PO2 Arterial 85.9 mmHg (80-100); pH Blood Arterial 7.31 (7.35-7.45)
--- NOTE | 2021-02-26 17:57 | NUR ---
DR PUCKETT CALLED AFTER 2ND ABG DRAWN AND STATES PT IS IN METABOLIC ACIDOSIS WITH UNKNOWN CAUSE. ORDERED DIFFERENT FLUIDS AND CAME TO SEE PT. AWARE THAT PT HAD EPISODE OF AFIB WITH RVR INTO 160S WITH 1 IV PUSH OF LOPRESSOR GIVEN. DR ALSO AWARE THAT ONLY ANTICOAGULATION IS LOVENOX AT THIS TIME. DR PUCKETT REVIEWING CHART. DR CAMPOS AWARE OF DR PUCKETT CONSULT WITH NEW ORDERS
[2021-02-27 01:08] LABS: Hematocrit 36.2 % (33.0-51.0); Hemoglobin 12.2 g/dL (11.5-16.0); Mean Corpuscular HGB 30.6 pg (26.0-34.0); Mean Corpuscular HGB Conc 33.7 g/dL (31.5-36.5); Mean Corpuscular Volume 91 fL (80-100); Mean Platelet Volume 10.6 fL (9.1-12.4); Platelet Count 291 K/mm3 (150-400); RDW Coefficient Variation 13.9 % (11.7-14.2); RDW Standard Deviation 46.5 fL (35.1-46.3); Red Blood Cell Count 3.99 M/mm3 (3.80-5.20); White Blood Cell Count 19.85 K/mm3 (4.00-11.30)
[2021-02-27 01:24] LABS: Albumin, Blood 2.2 g/dL (3.4-5.0); Anion Gap 7 mmol/L (6-16); Blood Urea Nitrogen 34 mg/dL (8-24); Bun/Creatinine Ratio 41.5 (12.0-20.0); CO2, Blood 20 mmol/L (21-32); Calcium, Blood 8.1 mg/dL (8.5-10.1); Chloride, Blood 119 mmol/L (98-108); Creatinine, Blood 0.82 mg/dL (0.40-1.00); Glomerular Filtration Rate >60 (60-); Glucose, Blood 170 mg/dL (70-99); Magnesium, Blood 1.8 mg/dL (1.6-2.4); Phosphorus, Blood 2.8 mg/dL (2.5-4.9); Potassium, Blood 2.8 mmol/L (3.5-5.5); Sodium, Blood 146 mmol/L (136-145)
[2021-02-27 05:51] LABS: PCO2 Arterial 29.7 mmHg (35-45); PO2 Arterial 62.6 mmHg (80-100); pH Blood Arterial 7.45 (7.35-7.45)
--- NOTE | 2021-02-27 06:40 | NUR ---
SHIFT SUMMARY: PT CONTINUED TO HAVE EPISODES OF INCREASED AGITATION & RESTLESSNESS, BECOMING TACHYPNEIC W/ RATE IN THE 40s-50s & HYPOXIC IN THE LOW 80s. @ THESE TIMES PT THRASHES IN THE BED BUT IS UNABLE TO VERBALIZE HER NEEDS & DOES NOT RESPOND TO VERBAL CUES. PRECEDEX DOES NOT APPEAR TO MITIGATE OR WORSEN THESE EPISODES, HOWEVER PRN DILAUDID & ATIVAN HAVE PROVEN VERY HELPFUL IN CALMING HER & SHORTLY AFTER SATS INC TO 97% & RR DEC TO 30s. NO ACUTE NEG CHANGES THIS SHIFT. PT'S DAUGHTER, LAZARA, & FRIEND KEISHA, UPDATED THOROUGHLY ON PT'S IMPROVEMENTS & PLAN FOR MRI TODAY OR TOMORROW. LAZARA PLANS TO COME IN TODAY TO VISIT & DISCUSS PLAN OF CARE W/ MANAGER WEALTH MANAGEMENT.
--- NOTE | 2021-02-27 10:19 | NUR ---
PT IS CONFUSED TO TIME AND PLACE BUT WILL FOLLOW SOME COMMANDS AND WILL VERBALIZE HER NAME. PT IS INCONSISITANT HOWEVER AND HAS EPISODES OF HYPERVENTILATION AND RESTLESNESS FOR WHICH SHE WAS MEDICATED, SEE EMAR AND WILL FOLLOW. AGGRESSIVE ORAL CARE DONE DUE TO CASTS AND LARGE FLOATING CAST IN BACK OF THROAT THAT PT MOSTLY SWALLOWED. WAS ABLE TO VISUALIZE AT ONE POINT BUT UNABLE AT THAT MOMENT TO SX OUT. PREMA BURNETTE ASSISTED TO BETTER VIEW. PT IS TOLEATING 11L OXY. AND WHILE SHE DID DESAT WITH AGGRESSIVE ORAL CARE, SHE RECOVERED QUITE WELL. PT IS A MOUTH BREATHER.
--- NOTE | 2021-02-27 14:51 | NUR ---
echocardiogram complete
--- NOTE | 2021-02-27 17:09 | NUR ---
PT HR AND RR AND BP ELEVATING. DILAUDID GIVEN TO ASSIST. PT WHILE SLEEPING CONT TO HAVE SATS AND RR, HR NOW DOWN. I/O NOTED. FAMILY HAS BEEN IN AND EXPLAINED THE FRAGILE NATURE OF PT CONDITION. SOME UNDERSTANDING VERBALIZED. PT CONT TO BE RESTRAINED TO PROTECT LINES. BICARB AT 75 ML/HR, AND NS TKO. EXTRA ORAL CARE REQUIRED DUE TO ORAL O2. SECOND PG LINE PLACE ON L UA. SEE PRN MEDS FOR THIS SHIFT.
--- NOTE | 2021-02-27 19:30 | NUR ---
ASSUMED CARE OF PT, REPORT RECEIVED. PT IS NOTED RESTING RECLINING IN BED, SATS MAINTAINING WITH OXYGEN TO MOUTH VIA OXYMIZER MASK AT 11 L/MIN, NO VISIBLE INCREASED WORK OF BREATHING WHEN AT REST, RARE COUGH IS NOTED. HRR, SINUS TO SINUS TACH ON MONITOR, PRESSURES MAINTAINING. PT IS NOTED TO BE BECOMING RESTLESS AND PULLING AGAINST RESTRAINTS REACHING FOR OXYMIZER MASK AND CARDIAC MONITORING WIRES. WILL ADMIN ATIVAN.
[2021-02-28 04:30] LABS: BASOPHILS ABSOLUTE AUTO 0.03 K/mm3 (0.00-0.23); BASOPHILS PERCENT AUTO 0 % (0-2); EOSINOPHILS PERCENT AUTO 0 % (0-6); Hemoglobin 10.8 g/dL (11.5-16.0); IMMATURE GRAN ABSOLUTE AUTO 0.37 K/mm3 (0.00-0.10); IMMATURE GRAN PERCENT AUTO 2 % (0-1); LYMPHOCYTES ABSOLUTE AUTO 0.73 K/mm3 (0.84-5.20); LYMPHOCYTES PERCENT AUTO 5 % (21-46); MONOCYTES ABSOLUTE AUTO 0.93 K/mm3 (0.16-1.47); MONOCYTES PERCENT AUTO 6 % (4-13); Mean Corpuscular HGB 30.7 pg (26.0-34.0); Mean Corpuscular HGB Conc 33.8 g/dL (31.5-36.5); Mean Corpuscular Volume 91 fL (80-100); Mean Platelet Volume 10.6 fL (9.1-12.4); NEUTROPHILS ABSOLUTE AUTO 13.67 K/mm3 (1.96-9.15); NEUTROPHILS PERCENT AUTO 87 % (41-73); Platelet Count 341 K/mm3 (150-400); RDW Coefficient Variation 13.7 % (11.7-14.2); RDW Standard Deviation 45.4 fL (35.1-46.3); Red Blood Cell Count 3.52 M/mm3 (3.80-5.20); White Blood Cell Count 15.73 K/mm3 (4.00-11.30)
[2021-02-28 04:48] LABS: Albumin, Blood 2.2 g/dL (3.4-5.0); Anion Gap 8 mmol/L (6-16); Blood Urea Nitrogen 31 mg/dL (8-24); Bun/Creatinine Ratio 32.9 (12.0-20.0); CO2, Blood 25 mmol/L (21-32); Calcium, Blood 8.2 mg/dL (8.5-10.1); Chloride, Blood 115 mmol/L (98-108); Creatinine, Blood 0.94 mg/dL (0.40-1.00); Glomerular Filtration Rate >60 (60-); Glucose, Blood 117 mg/dL (70-99); Phosphorus, Blood 3.1 mg/dL (2.5-4.9); Potassium, Blood 3.1 mmol/L (3.5-5.5); Sodium, Blood 148 mmol/L (136-145)
--- NOTE | 2021-02-28 05:39 | NUR ---
PT RESTS QUIETLY THROUGHOUT SHIFT, OXYGEN WAS INITIALLY ABLE TO BE TITRATED DOWN TO 10 L/MIN VIA OXYMIZER MASK WITH PRONGS PLACED IN PT MOUTH HOWEVER AFTER MIDNOC DOSE OF PRN DILAUDID 1.5 MG IV, OXYGEN REQUIREMENTS INCREASED TO 12 L/MIN, SATS HAVE MAINTAINED GREATER THAN 92% SINCE THAT TIME, PT WAS NOTED TO HAVE FLUCTUATIONS IN OXYGEN SATURATION FROM 92-98% AT THAT FLOW RATE, RESP RATE CONTINUES 20-MID 30S, IS NOTED TO INCREASE WITH PERIODS OF INCREASED RESTLESSNESS, PRN ATIVAN ADMINISTERED X 2 THIS SHIFT. PT IS CURRENTLY RESTING QUIETLY, DOES PULL AGAINST WRIST RESTRAINTS INTERMITTENLTY AND APPEARS TO REACH FOR OXYGEN TUBING WELL CARDIAC MONITORING WIRES. MENTATION HAS IMPROVED THROUGHOUT NOC, PT IS NOW ABLE TO STATE THAT SHE IS IN [place] AND THAT SHE WANTS WATER, SHE RESPONDS TO VERBAL STIMULI AND INTERMITTENTLY FOLLOWS DIRECTIONS TO ASSIST WITH ORAL CARE AND REPOSITIONING. OTHERWISE NO ACUTE CHANGES THIS SHIFT.
--- NOTE | 2021-02-28 07:36 | NUR ---
PT IS SLEEPING WITH VSS, SATS 96 AND REGULAR RESP. WILL FOLLOW AND MONITOR.
--- NOTE | 2021-02-28 10:45 | NUR ---
EXTENSIVE ORAL CARE AGAIN DONE DUE TO VISIBLE CASTS ON SOFT PALATE. PT REMAINS RESTRAINED DUE TO INCONSISTANT RESPONSES AND INABILITY TO FOLLOW COMMMANDS CURRENTLY. HOWEVER DR LIGHT INDICATED PT DID FOLLOW SOME COMMANDS IT REMAINS INCONSISTANT AT BEST. RT WAS CONTACTED AND FACE TENT WAS STARTD AT 40% WITH HUMIDIFICATION IMPROVEMENTS. PT IS BEGINING TO AROUSE AND SPONT MOVE AND WILL FOLLOW UP WITH POTENTIAL FOR SWALLOWING/EATING OG.
--- NOTE | 2021-02-28 12:19 | NUR ---
AFTER MONITORING PT VS WHICH WERE ALL ELEVATING AND THEN ASSESSING MENTAL STATUS AT BED SIDE PT IS NOT A CANDIDATE FOR ORAL FEEDING AT THIS TIME AND NEED MEDICATION FOR ANXIETY, AGITAION AND AMS. SEE EMAR. AFTER HALDOL WAS GIVEN AND RR, HR AND BP LOWERED DOBHOFF FEEDING TUBE WAS PLACE IN THE R NARE EASILY. PT SATS SEEM TO BE STABLE WITH THE AMS AND AGITATION BUT WILL FOLLOW AND EVALUATE FOR POSSIBLY ADDING OTHER MEDS. POST INSERTION CXR FOR DOBHOFF WAS OBTAINED.
--- NOTE | 2021-02-28 12:57 | NUR ---
DOBHOFF FEEDING TUBE CONFIRMED PER DR STONER. AWAITING T.F. ORDERS. TUBE IS AT 50 CM.
--- NOTE | 2021-02-28 14:29 | NUR ---
AFTER ATTEMPTING HALDOL AND ATIVAN TO [employer] BP, HR, RR WILL PROGRESS TO PRECEDEX GTT AND TITRATE. PT CONT TO HAVE AMS, GROANING AND MOVING W/O PURPOSE AND NOT FOLLOWING DIRECTIONS. SATS MAITAINED AT GOOD LEVEL ON 35% FACE TENT. PIVOT 1.5 STARTED AT 25ML PER ORDER.
--- NOTE | 2021-02-28 17:12 | NUR ---
PRECEDEX GTT WAS STARTED ABOUT 1445 AT 0.5 MCG. HR, BP, RR IMPROVED NOTED. SATS REMAIN STABLE ON 35% FACE TENT. I/O NOTED. VSS. ORAL CARE HAS BEEN MUCH IMPORVED WITH HUMIDITY FOR 12 AND 1600 ORAL CARE TIMES. NO FAMILY HAS BEEN IN TO VISIT TODAY UP TO THIS TIME. IVF LR AT 75, NS TKO, PRECEDEX GTT AT 9.1 ML.
--- NOTE | 2021-02-28 17:49 | NUR ---
SON IN TO ROOM AND UPDATED RE PT CURRENT STATUS AND CHANGED. SON IS TAKING MOTHERS BELONGINGS HOME AND SISTER PER PHONE REQUESTED THE SAME.
--- NOTE | 2021-02-28 19:30 | NUR ---
ASSUMED CARE OF PT, REPORT RECEIVED. PT IS NOTED RESTING QUIETLY RECLINING IN BED. DOBHOFF IS NOW NOTED IN PLACE WITH PIVOT 1.5 TUBE FEED AT 25 ML/HR, GOAL RATE IS REPORTED AT 70 ML/HR. OXYGEN IS NOW VIA FACEMASK AND SATS MAINTAINING MID TO UPPER 90S, RESP RATE UPPER 20S TO LOW 30S, NO VISIBLE INCREASED WORK OF BREATHING IS NOTED AT REST. HRR, SINUS NARAYAN TO SINUS RHYTHM IS NOTED UPPER 50S LOW 60S, PRESSURES MAINTAINING. WILL MONITOR.
--- NOTE | 2021-02-28 22:34 | NUR ---
PT RESPIRATIONS NOTED NEAR 40/MIN, SHE IS AWAKE, PULLING AGAINST RESTRAINTS, KICKING FEET ON MATTRESS, AND SCOOTING SELF DOWN IN BED APPEARS TO BE ATTEMPTING TO REACH OXYGEN FACE TENT AND CARDIAC MONITORING LINES. PRECEDEX GTT INCREASED BACK TO 0.5 MCG/KG/HR, WILL MONITOR.
--- NOTE | 2021-03-01 00:53 | NUR ---
PT SATS MAINTAINING 100% WITH OXYGEN VIA FACE TENT AT 28% FIO2, OXYGEN DECREASED TO ROOM AIR AND SATS MAINTAINING 94-95% AT THIS TIME, WILL MONITOR. RESP RATE REMAINS MID 20S TO 30
--- NOTE | 2021-03-01 02:54 | NUR ---
PT HAS INCREASED AGITATION WITH ORAL CARE, KICKING FEET AND SHAKING HEAD PULLING AWAY FROM ORAL SPONGE HOWEVER OPENS MOUTH WHEN INSTRUCTED AND COUGHS WHEN INSTRUCTED. PT IS NOTED TO HAVE DECREASED SATS TO THE HIGH 80S ON ROOM AIR WITH THE INCREASE IN ACTIVITY. OXYGEN VIA NASAL CANNULA AT 2 L/MIN APPLIED. PT ANSWERS "YES" TO PAIN AND "COOL" TO SPEECH IS OTHERWISE MUMBLED AND DIFFICULT TO UNDERSTAND.
[2021-03-01 03:33] LABS: PCO2 Arterial 34.4 mmHg (35-45); PO2 Arterial 56.2 mmHg (80-100); pH Blood Arterial 7.48 (7.35-7.45)
[2021-03-01 03:48] LABS: BASOPHILS ABSOLUTE AUTO 0.02 K/mm3 (0.00-0.23); BASOPHILS PERCENT AUTO 0 % (0-2); EOSINOPHILS PERCENT AUTO 0 % (0-6); Hematocrit 33.2 % (33.0-51.0); IMMATURE GRAN ABSOLUTE AUTO 0.22 K/mm3 (0.00-0.10); IMMATURE GRAN PERCENT AUTO 2 % (0-1); LYMPHOCYTES ABSOLUTE AUTO 0.64 K/mm3 (0.84-5.20); LYMPHOCYTES PERCENT AUTO 6 % (21-46); MONOCYTES ABSOLUTE AUTO 0.75 K/mm3 (0.16-1.47); MONOCYTES PERCENT AUTO 7 % (4-13); Mean Corpuscular HGB 30.7 pg (26.0-34.0); Mean Corpuscular HGB Conc 33.1 g/dL (31.5-36.5); Mean Corpuscular Volume 93 fL (80-100); Mean Platelet Volume 10.4 fL (9.1-12.4); NEUTROPHILS PERCENT AUTO 86 % (41-73); Platelet Count 274 K/mm3 (150-400); RDW Standard Deviation 47.5 fL (35.1-46.3); Red Blood Cell Count 3.58 M/mm3 (3.80-5.20); White Blood Cell Count 11.53 K/mm3 (4.00-11.30)
[2021-03-01 04:03] LABS: Albumin, Blood 2.1 g/dL (3.4-5.0); Anion Gap 5 mmol/L (6-16); Blood Urea Nitrogen 36 mg/dL (8-24); Bun/Creatinine Ratio 47.6 (12.0-20.0); CO2, Blood 26 mmol/L (21-32); Calcium, Blood 8.1 mg/dL (8.5-10.1); Chloride, Blood 115 mmol/L (98-108); Creatinine, Blood 0.76 mg/dL (0.40-1.00); Glomerular Filtration Rate >60 (60-); Glucose, Blood 147 mg/dL (70-99); Magnesium, Blood 2.1 mg/dL (1.6-2.4); Potassium, Blood 3.1 mmol/L (3.5-5.5); Sodium, Blood 146 mmol/L (136-145)
--- NOTE | 2021-03-01 06:16 | NUR ---
PT RESTS QUIETLY THROUGHOUT SHIFT. PRECEDEX WAS TITRATED DOWN TO OFF THIS SHIFT AND PT HAS BEEN TOLERATING WELL, DILAUDID PRN ADMINISTRATION HAS BEEN NOTED TO BE MORE EFFECTIVE WITH CONTROL OF AGITATION/RESTLESSNESS THAN ATIVAN OR PRECEDEX. ORAL CARE DONE FREQUENTLY THIS SHIFT, PT DOES FOLLOW INSTRUCTIONS TO COUGH WITH ORAL CARE AFTER MIDNOC. OXYGEN REQUIREMENTS HAVE DECREASED FROM 28% FIO2 VIA FACE TENT AT BEGINNING OF SHIFT TO 4 L/MIN VIA NASAL CANNULA AT THIS TIME, SATS ARE CURRENTLY 96% AND RESPIRATORY RATE IS MID TO UPPER 20S WHEN AT REST, INCREASES TO LOW 30S WITH INCREASES IN ACTIVITY. PT SPEECH IS MORE EASILY UNDERSTOOD THIS AM, SHE STATES THAT SHE WANTS TO SIT UP AND THAT SHE WANTS A TOMATOE JUICE, SHE LIKES V8 HOWEVER SHE IS UNABLE TO STATE THE DATE OR HER LOCATION. HYDRALAZINE WAS ADMINISTERED X 1 THIS SHIFT FOR SBP GREATER THAN 170, SINUS RHYTHM, RATE CURRENTLY 70S, HEART RATE DID TREND DOWN TO LOW 50S WITH PRECEDEX AND REMAINED LOW TO MID 50S FOR 2 HOURS AFTER PRECEDEX WAS PLACED TO STANDBY.
--- NOTE | 2021-03-01 11:27 | NUR ---
REASSESSMENT PT WAS LETHARGIC THIS MORNING, BARELY WOKE TO VOICE AND ONLY ORIENTED TO SELF. SHE HAS BECOME MORE ALERT THROUGHOUT THE MORNING, ORIENTED TO PERSON, PLACE AND DATE. SHE KEEPS REQUESTING SOMETHING TO EAT OR DRINK. TRIALLED PT WITH SIP OF WATER AND PT STARTED COUGHING. SHE ALSO KEEPS ASKING TO LEAVE DESPITE BEING RMEINDED HOW SICK SHE IS. STILL REQUIRING RESTRAINTS TO KEEP PT FROM PULLING AT LINES. LUNGS HAVE EXPIRATORY WHEEZES. COUGHING UP SMALL AMOUNT OF THICK, PINK/OFF WHITE SPUTUM. SAMPLE SENT TO LAB BY RT. BP STABLE, SR. TOLERATING TUBE FEED. HAD A BM THIS MORNING. MARC WITH CL YELLOW URINE. SPOKE WIT EHR AND UPDATED HIM. COMTINUING TO MONITOR.
--- NOTE | 2021-03-01 16:45 | NUR ---
SHIFT SUMMARY PT HAS BEEN QUITE RESTLESS THIS AFTERNOON, CONSTANTLY MOVING HER LEGS AROUND IN BED AND UP IN THE AIR. SHE IS ORIENTED, BUT FORGETFUL AND STILL PICKS AT THINGS. ATTEMPTED TO GIVE HER A TRIAL OFF OF THE RESTRAINTS, BUT PT QUICKLY STARTED PULLING OFF HER TELE, GRABBING AT IV LINES AND REACHING UP TOWARD HER DOBHOFF. RESTRAINTS REPLACED. HER RR IS IN THE 30S AND 40S, BUT PT IS STILL MAINTAINING SPO2 IN THE 90S ON 2L/NC. ST IN THE 1TEENS, BP ELEVATED THIS AFTERNOON WELL. PRN DIALUDID, ATIVAN AND HYDRALAZINE GIVEN TO TRY AND HELP WITH AGITATION AND BP WITH MILD EFFECTIVENESS. MARC DRAINING CL YELLOW URINE. PT TOLERATING TUBE FEED AT GOAL RATE. PT'S CAME AND VISITED HER. NO OTHER CONCERNS AT THIS TIME. CONTINUE TO MONITOR.
--- NOTE | 2021-03-01 19:30 | NUR ---
ASSUMED CARE OF PT, REPORT RECEIVED. PT IS ALERT AND RESTLESS IN BED USING FEET TO ATTEMPT TO PULL BODY OFF OUT OF BED, PULLING AGAINST BILAT WRIST RESTRAINTS, SPEECH IS MUMBLED AND DIFFICULT TO UNDERSTAND HOWEVER MORE CLEAR THAN PREVIOUS SHIFTS. SHE ANSWERS THAT SHE DOES KNOW WHERE SHE IS HOWEVER REFUSES TO STATE THE NAME OF THIS LOCATION. SHE DOES STATE THAT SHE WANTS SOMETHING TO DRINK. RESP RATE IS NOTED BETWEEN 30 AND 40 WITH THE INCREASED ACTIVITY, AUDIBLE COARSE RESPIRATORY SOUNDS NOTED ON ARRIVAL TO ROOM, CLEAR WITH COUGH, LUNGS WITH CLEAR RIGHT UPPER LOBE, OTHERWISE CRACKLES THROUGHOUT AND DIM BASES BILAT, THESE DO IMPROVE SOMEWHAT WITH COUGH, RESP RATE IS NOTED TO IMPROVE TO 20S WITH DECREASED ACTIVITY. HRR, SINUS TACH IS NOTED ON MONITOR RATE LOW 100S, HYPERTENSION IS NOTED HOWEVER BP CUFF IS IN PLACE TO LEFT WRIST AND PT HAS BEEN ACTIVELY PULLING AGAINST BILAT RESTRAINTS WILL RECHECK, CONTINUES WITHOUT EDEMA, SKIN REMAINS WARM AND DRY WITH BRISK CAP REFILL, PULSES FULL X 4 EXTREMITIES. DOBHOFF REMAINS IN PLACE TO RIGHT NARE, PIVOT 1.5 TUBE FEEDS AT GOAL RATE OF 40 ML/HR WITH WATER 30 ML EVERY 4 HOURS, ACTIVE BOWEL TONES X 4, ABD SOFT, NO GRIMACING WITH PALPATION, ATTENDS IS NOW NOTED IN PLACE. MARC REMAINS IN PLACE WITH CLEAR YELLOW URINE DRAINING. WILL MONITOR. EXTENDED DWELLS IN PLACE TO BILAT UPPER ARMS, DRESSINGS CDI, SITES WNL BILAT. LR INFUSING AT 75 ML/HR, NS AT TKO, AND ZOSYN INFUSING.
[2021-03-02 04:16] LABS: BASOPHILS ABSOLUTE AUTO 0.03 K/mm3 (0.00-0.23); BASOPHILS PERCENT AUTO 0 % (0-2); EOSINOPHILS ABSOLUTE AUTO 0.01 K/mm3 (0.00-0.68); EOSINOPHILS PERCENT AUTO 0 % (0-6); Hematocrit 32.1 % (33.0-51.0); Hemoglobin 10.6 g/dL (11.5-16.0); IMMATURE GRAN ABSOLUTE AUTO 0.44 K/mm3 (0.00-0.10); IMMATURE GRAN PERCENT AUTO 3 % (0-1); LYMPHOCYTES ABSOLUTE AUTO 1.14 K/mm3 (0.84-5.20); LYMPHOCYTES PERCENT AUTO 6 % (21-46); MONOCYTES ABSOLUTE AUTO 0.82 K/mm3 (0.16-1.47); MONOCYTES PERCENT AUTO 5 % (4-13); Mean Corpuscular HGB 30.9 pg (26.0-34.0); Mean Corpuscular Volume 94 fL (80-100); Mean Platelet Volume 11.2 fL (9.1-12.4); NEUTROPHILS ABSOLUTE AUTO 15.27 K/mm3 (1.96-9.15); NEUTROPHILS PERCENT AUTO 86 % (41-73); Platelet Count 255 K/mm3 (150-400); RDW Standard Deviation 47.4 fL (35.1-46.3); Red Blood Cell Count 3.43 M/mm3 (3.80-5.20); White Blood Cell Count 17.71 K/mm3 (4.00-11.30)
[2021-03-02 04:33] LABS: Albumin, Blood 2.1 g/dL (3.4-5.0); Anion Gap 8 mmol/L (6-16); Blood Urea Nitrogen 37 mg/dL (8-24); CO2, Blood 24 mmol/L (21-32); Calcium, Blood 7.8 mg/dL (8.5-10.1); Chloride, Blood 113 mmol/L (98-108); Creatinine, Blood 0.86 mg/dL (0.40-1.00); Glomerular Filtration Rate >60 (60-); Glucose, Blood 131 mg/dL (70-99); Magnesium, Blood 2.1 mg/dL (1.6-2.4); Potassium, Blood 3.3 mmol/L (3.5-5.5); Sodium, Blood 145 mmol/L (136-145)
--- NOTE | 2021-03-02 06:29 | NUR ---
PT CONTINUES TO BE MORE ALERT, SPEECH CONTINUES TO BE MUMBLED AND DIFFICULT TO UNDERSTAND ALTHOUGH THERE ARE MORE WORDS THAT CAN BE UNDERSTOOD. SHE IS FREQUENTLY NOTED TO REQUEST WATER AND COFFEE AFTER ORAL CARE. OXYGEN REQUIREMENTS CONTINUE BETWEEN 2 AND 4 L/MIN, PT IS FOLLOWING SIMPLE INSTRUCTIONS MORE CONSISTENTLY THIS SHIFT, WITH EACH REPOSITIONING SHE HAS BEEN TOLD BY THIS RN TO "TAKE A DEEP BREATH" FOLLOWING WHICH SHE HAS BEEN TOLD TO "COUGH" LUNG SOUNDS ARE IMPROVED POST COUGH HOWEVER CONTINUE COARSE WITH INTERMITTENT WHEEZES, SATS HAVE BEEN NOTED 92-93% WHEN PT IS AWAKE AND RESTLESS AND INCREASE TO 95-96% WHEN PT RETURNS TO REST. PRESSURES CONTINUE TO MAINTAIN, HRR, SINUS RHYTHM IN THE 80-90S WHEN AT REST, INCREASES TO LOW 100S WITH INCREASES IN ACTIVITY. HAS BEEN TOLERATING TUBE FEEDS AT GOAL.
--- NOTE | 2021-03-02 09:00 | NUR ---
ASSUMPTION OF CARE PT RESTING IN BED, AROUSES TO VERBALI STIMULI, ORIENTED TO SELF, LOCATION, YEAR AND FOLLOWING DIRECTIONS, PT FORGETFUL, FREQUENTLY ASKS FOR COFFEE/WATER. PT ON 3.5L PER NC TO MAINTAIN O2 SATURATIONS> 90%, MONITOR SHOWS SINUS RHYTHM WITH HR 70'S-80'S AT REST, INCREASES TO 100-110 WITH ACTIVITY AND NURSING CARE, BP STABLE. DOBHOFF REMAINS IN PLACE WITH TF @ 40ml/hr. MARC REMAINS IN PLACE WITH CLEAR YELLOW OUTPUT. PT ABLE TO MINIMALLY ASSIST WITH TURNS, BILAT SOFT RESTRAINTS IN PLACE.
--- NOTE | 2021-03-02 10:35 | NUR ---
DOBHOFF PLACEMENT DOCUMENTED DOBHOFF PLACEMENT 75, CURRENT PLACEMENT 52, TF PLACED ON HOLD, DISCUSSED WITH DR BRANDON, ORDER FOR ABD XRAY. DR TEE REVEIWED AND CONFIRMED APPROPRIATE DOBHOFF PLACEMENT. TF RESTARTED. PT PLACED IN MITTS AT THIS TIME, BED ALARM ON.
--- NOTE | 2021-03-02 13:04 | NUR ---
DR WEBER TO PTS ROOM, UPDATED ON PTS STATUS- SUPPLEMENTAL OXYGEN DECREASING, HTN, BEDSIDE SWALLOW EVAL. DISCUSSED PAIN MANAGEMENT WITH DR WEBER. PLAN TO WAIT FOR SPEECH THERAPY EVAL BEFORE PLACING NEW DOBHOFF.
--- NOTE | 2021-03-02 15:05 | NUR ---
SHIFT SUMMARY PT REMAINS ORIENTED TO SELF, LOCATION, FOLLOWING DIRECTIONS, BUT VERY RESTLESS AND FORGETFUL. PT CONTINUES TO PULL AT LINES AND RESTRAINTS. O2 SATURATIONS> 90% ON RA, MONITOR SHOWS SINUS RHYTHM WITH HR 80'S-110, PT HYPERTENSIVE, NEW ORDER FOR LABETALOL. PT PULLED DOBHOFF THIS SHIFT, NOT TO BE REPLACED UNTIL SPEECH THERAPY EVALUATION. MARC IN PLACE WITH GOOD URINE OUTPUT. REPORT GIVEN TO MOMO BURNETTE.
--- NOTE | 2021-03-02 15:41 | NUR ---
ASSUMED PT CARE FROM VASILE MENDOZA AT 1430 PT LYING IN BED. DAUGHTER AT BEDSIDE. PT IS ALERT AND ORIENTED AND ABLE TO MAKE NEEDS KNOWN. SL AT THIS TIME. ON ROOM AIR WITH OXYGEN SATURATIONS >90%. MARC CATHETER IS PATENT AND DRAINING YELLOW URINE TO GRAVITY. REMOVED BILATERAL SOFT WRIST RESTRAINTS AT 1445. WRAPPED UP BILATERAL POWERGLIDES D/T PT PULLING OUT DOBHOFF EARLIER. PT REQUESTING WATER D/T DRY MOUTH. EDUCATED BOTH PT AND DAUGHTER THE REASON WHY PT IS ONLY ALLOWED SWABS. DAUGHTER VERY FRUSTRATED AND STARTED RAISING VOICE STATING SHE DIDN'T UNDERSTAND IF SHE WAS DRINKING WATER A WEEK AGO WHY SHE COULDN'T HAVE ANY NOW. INFORMED DAUGHTER THAT PT HAS BEEN HOSPITALIZED FOR ALMOST TWO WEEKS AND HASN'T BEEN USING THOSE MUSCLES AND SHE IS VERY HIGH RISK FOR ASPIRATION. GIVEN HER RECENT RESPIRATORY STATUS ASPIRATING WOULD MOST LIKELY LEAD TO RESPIRATORY DISTRESS AGAIN; THEREFORE, PROLONGING HOSPITAL STAY. DAUGHTER CONTINUED TO ARGUE STATING IT WAS "BS" AND THAT IF SHE COULD SHE WOULD GIVE HER MOM WATER. INFORMED DAUGHTER OF BEDSIDE SWALLOW EVAL PERFORMED BY VASILE MENDOZA WITH PT NOT BEING ABLE TO HOLD FLUIDS IN MOUTH WATER WAS DRIPPING DOWN HER FRONT SIDE, WELL PT COUGHING/CHOKING ON SIPS OF WATER EARLIER. INFORMED DAUGHTER THAT SPEECH THERAPY HAS BEEN ORDERED AND WILL MOST LIKELY ASSESS PT TOMORROW STARTING WITH THICKER LIQUIDS. DAUGHTER CONTINUED TO QUESTION WHY PT COULDN'T HAVE WATER; NOT RECEPTIVE TO EDUCATION AND VERY PASSIVE AGGRESSIVE WITH STATEMENTS/COMMENTS TOWARD STAFF. PT TOLERATED SWABS OKAY, BUT WAS STILL LOSING WATER FROM EACH SIDE OF MOUTH. BED ALARM IN PLACE. DAUGHTER HAS LEFT AND PT IS RESTING AT THIS TIME. WILL CONTINUE TO MONITOR.
--- NOTE | 2021-03-02 18:21 | NUR ---
END OF SHIFT SUMMARY NO SIGNIFICANT CHANGES SINCE LAST ENTRY. PT PLACED IN NILSON VEST D/T ATTEMPTING TO CLIMB OVER SIDERAILS. PT IS ALERT AND ORIENTED WITH CONFUSION AND RESTLESS NOTED AT TIMES. MEDICATED TWICE SINCE ASSUMPTION OF CARE FOR HYPERTENSION. CONTINUES TO PICK AT LINES AND TUBES. WILL CONTINUE TO REASSESS FOR BILATERAL SOFT WRIST RESTRAINTS IF PT ATTEMPTS TO PULL ON MARC OR IV LINES. PT REMAINS ON ROOM AIR WITH OXYGEN SATURATIONS >90%. NSR WITH HR 80'S. WILL CONTINUE TO MONITOR UNTIL REPORT IS HANDED OFF TO ONCOMING RN.
--- NOTE | 2021-03-02 20:54 | NUR ---
ASSUMED CARE FROM VASILE WISDOM. HAVE BEEN IN THE ROOM FOR THE MAJORITY OF THE TIME SINCE REPORT WAS GIVEN. PT IS VERY FIDGETY, SHE GETS VERY SHORT OF BREATH WITH ANY ACTIVITY, SHE IS ABLE TO ANSWER QUESTIONS APPROPRIATELY, IE WHERE IS SHE, WHY IS SHE HERE, UNABLE TO COMPREHEND WHY SHE IS NOT BEING FED OR GIVEN WATER AT THIS TIME. I HAVE EXPLAINED SEVERAL TIMES ABOUT HER INABILITY TO SWALLOW AND HER LUNGS BEING FILLED WITH FLUID AND SHE ACKNOWLEDGES BRIEFLY THEN RETURNS TO ASKING FOR FOOD AND WATER. ORAL CARE HAS BEEN DONE, GREEN SWABS HAVE BEEN USED, MOUTH MOISTURE WELL. SHE CAN'T SEEM TO UNDERSTAND WHAT IS HAPPENING. SHE CONTINUES TO SAY SHE WANTS TO GO HOME TO HER GRANDBABIES AND THAT HER BACK AND FEET HURT. SHE HAS BEEN MEDICATED FOR PAIN. HER BLOOD PRESSURE IS ELEVATED BUT SHE WAS RECENTLY MEDICATED FOR THAT AND IS NOT ABLE TO HAVE ADDITIONAL MEDS, HOPING THE PAIN MEDICATION SETTLES HER DOWN BRIEFLY. SHE HEARS THE TELEVISION AND COMMENTS APPROPRIATELY ON WHAT IS BEING SAID ON THERE, BUT THEN ASKS FOR FOOD AND WATER. CONTINUES TO FIDGET.
--- NOTE | 2021-03-02 22:29 | NUR ---
ROMAN IS VERY FIDGETY AND UNCOMFORTABLE. SHE IS FRUSTRATED. HER BLOOD PRESSURE IS EELVATED, HYDRALAZINE GIVEN, THEN ATIVAN GIVEN FOR PATIENT RESTLESSNESS. SHE THROWS OFF HER COVERS, THEN SAYS SHE'S COLD, SHE WANTS TO GO HOME, SHE WANTS TO EAT. SHE DOESN'T REMEMBER BEING TOLD WHY SHE ISN'T ABLE TO EAT RIGHT NOW. SHE WANTS ICE CHIPS, ENCOURAGING HER TO REST AND NOT FOCUS ON THAT RIGHT NOW. HER BLOOD PRESSURE REMAINS ELEVATED. TRYING TO REASSURE. SWABS GIVEN.
--- NOTE | 2021-03-02 23:18 | NUR ---
PT CONTINUES WITH ELEVATED BLOOD PRESSURE AND BEING UNSETTLED. LEGS ARE ALL OVER THE PLACE, CAN'T SEEM TO SETTLE DOWN. SHE HAS BEEN MEDICATED PER EMR.
--- NOTE | 2021-03-03 02:30 | NUR ---
ROMAN HAS CONTINUED TO BE RESTLESS AND UNSETTLED, BLOOD PRESSURE REMAINS ELEVATED. SHE IS MEDICATED WITH TRANDATE, ATIVAN AND HYDROMORPHONE, SHE IS NOW RESTING. BLOOD PRESSURE COMING DOWN, HEART RATE COMING DOWN, BREATHING IS MORE EVEN AND LESS LABORED.
--- NOTE | 2021-03-03 05:49 | NUR ---
PT WOKE BRIEFLY WHEN I WENT IN THE ROOM, SHE MUMBLED SOME THINGS. RE-ORIENTED HER TO WHERE SHE IS AND WHAT IS GOING ON, THAT SHE WAS ABLE TO SLEEP FOR A COUPLE OF HOURS. SHE HAS RETURNED TO SLEEP.
[2021-03-03 07:01] LABS: BASOPHILS ABSOLUTE AUTO 0.05 K/mm3 (0.00-0.23); BASOPHILS PERCENT AUTO 0 % (0-2); EOSINOPHILS ABSOLUTE AUTO 0.18 K/mm3 (0.00-0.68); EOSINOPHILS PERCENT AUTO 1 % (0-6); Hematocrit 34.2 % (33.0-51.0); Hemoglobin 11.4 g/dL (11.5-16.0); IMMATURE GRAN PERCENT AUTO 3 % (0-1); LYMPHOCYTES ABSOLUTE AUTO 2.88 K/mm3 (0.84-5.20); LYMPHOCYTES PERCENT AUTO 19 % (21-46); MONOCYTES PERCENT AUTO 6 % (4-13); Mean Corpuscular HGB 30.9 pg (26.0-34.0); Mean Corpuscular HGB Conc 33.3 g/dL (31.5-36.5); Mean Corpuscular Volume 93 fL (80-100); Mean Platelet Volume 10.6 fL (9.1-12.4); NEUTROPHILS ABSOLUTE AUTO 10.95 K/mm3 (1.96-9.15); NEUTROPHILS PERCENT AUTO 71 % (41-73); Platelet Count 259 K/mm3 (150-400); RDW Coefficient Variation 13.5 % (11.7-14.2); RDW Standard Deviation 45.8 fL (35.1-46.3); Red Blood Cell Count 3.69 M/mm3 (3.80-5.20); White Blood Cell Count 15.46 K/mm3 (4.00-11.30)
--- NOTE | 2021-03-03 07:33 | NUR ---
ASSUMED CARE: PT RESTING IN BED, NILSON VEST AND WRIST RESTRAINTS IN PLACE. 4L NC IN PLACE. NO ACUTE NEEDS OR CONCERNS AT THIS TIME.
[2021-03-03 07:52] LABS: Anion Gap 7 mmol/L (6-16); Blood Urea Nitrogen 37 mg/dL (8-24); CO2, Blood 25 mmol/L (21-32); Calcium, Blood 8.1 mg/dL (8.5-10.1); Chloride, Blood 110 mmol/L (98-108); Glomerular Filtration Rate 60 (60-); Glucose, Blood 86 mg/dL (70-99); Magnesium, Blood 2.1 mg/dL (1.6-2.4); Phosphorus, Blood 3.5 mg/dL (2.5-4.9); Potassium, Blood 2.8 mmol/L (3.5-5.5); Sodium, Blood 142 mmol/L (136-145); Thyroid Stimulating Hormone 0.305 uIU/mL (0.360-4.800)
[2021-03-03 07:57] LABS: Vancomycin, Trough 20.1 ug/mL (5.0-10.0)
--- NOTE | 2021-03-03 09:04 | NUR ---
PT'S SPEECH IS GARBLED BUT SAID SHE WAS IN HOSPITAL AND RESPONDS TO NAME. CONTINUES TO BE FIDGETING IN BED WITH NILSON AND WRIST RESTRAINTS IN PLACE
[2021-03-03 11:49] LABS: Vancomycin, Trough 16.8 ug/mL (5.0-10.0)
--- NOTE | 2021-03-03 13:54 | NUR ---
DR BRANDON INSTRUCTED ATTEMPT AT DOBHOFF DUE TO PT FAILING SWALLOW EVAL. CN AT BEDSIDE ASSISTING, PT PREMEDICATED AND STILL WAS VERY AGITATED. NURSE ATTEMPTED BOTH NOSTRILS WITH MUCH RESISTANCE, BARELY GOT THE TIP IN AND PT'S NOSE STARTED BLEEDING. DR BRANDON AWARE AND STATES TO NOT REATTEMPT TODAY AND TO REATTEMPT TOMORROW.
--- NOTE | 2021-03-03 16:21 | NUR ---
PT'S S.O. AT BEDSIDE THIS AFTERNOON. WAS GIVEN UPDATE AND EDUCATED THAT PT IS NOT ABLE TO EAT OR DRINK AT THIS TIME PER SPEECH THERAPY EVALUATION. INFORMED S.O. THAT DOBHOFF WAS ATTEMPTED. TOOK PT OUT OF WRIST RESTRAINTS SO HE COULD HOLD HER HAND AND PT BEGAN PULLING AT OXYGEN TUBING AND CAUSING DESATURATIONS. RESTRAINTS REPLACED. ORAL CARE DONE.
--- NOTE | 2021-03-03 18:08 | NUR ---
SHIFT SUMMARY: PT HAS ROUSED T/O SHIFT, TALKING MORE, SPEECH LESS GARBLED BUT STILL CONFUSED WHEN SHE DOES SPEAK. BILATERAL WRIST RESTRAINTS AND NILSON IN PLACE. S.O. CAME BY TO SEE PT AND WAS MADE AWARE OF SWALLOW AND SAFETY PRECAUTIONS WHICH IS WHY PT REMAINS NPO AT THIS TIME. 2L O2 IN PLACE SATTING MID 90S. NO ACUTE NEEDS OR CONCERNS AT THIS TIME.
--- NOTE | 2021-03-03 21:30 | NUR ---
CARE ASSUMPTION PT A&O TO SELF. SPEECH GARBLED/MUMBLED, DIFFICULT TO UNDERSTAND. BP ELEVATED, OTHERWISE VSS. MONITOR SHOWS SR, HR 70's. SPO2 > 92% ON 2L NC. PT NPO. MARC CATH PATENT & DRAINING. NILSON VEST & BILAT SOFT WRIST RESTRAINTS IN PLACE W/ PT ATTEMPTING TO PULL AT LINES.
[2021-03-04 04:24] LABS: BASOPHILS ABSOLUTE AUTO 0.04 K/mm3 (0.00-0.23); BASOPHILS PERCENT AUTO 0 % (0-2); EOSINOPHILS ABSOLUTE AUTO 0.08 K/mm3 (0.00-0.68); EOSINOPHILS PERCENT AUTO 1 % (0-6); Hematocrit 36.4 % (33.0-51.0); Hemoglobin 11.6 g/dL (11.5-16.0); IMMATURE GRAN ABSOLUTE AUTO 0.37 K/mm3 (0.00-0.10); IMMATURE GRAN PERCENT AUTO 2 % (0-1); LYMPHOCYTES ABSOLUTE AUTO 2.26 K/mm3 (0.84-5.20); LYMPHOCYTES PERCENT AUTO 15 % (21-46); MONOCYTES ABSOLUTE AUTO 1.14 K/mm3 (0.16-1.47); MONOCYTES PERCENT AUTO 7 % (4-13); Mean Corpuscular HGB 30.6 pg (26.0-34.0); Mean Corpuscular HGB Conc 31.9 g/dL (31.5-36.5); Mean Corpuscular Volume 96 fL (80-100); Mean Platelet Volume 11.2 fL (9.1-12.4); NEUTROPHILS ABSOLUTE AUTO 11.53 K/mm3 (1.96-9.15); NEUTROPHILS PERCENT AUTO 75 % (41-73); Platelet Count 256 K/mm3 (150-400); RDW Coefficient Variation 13.8 % (11.7-14.2); RDW Standard Deviation 48.2 fL (35.1-46.3); Red Blood Cell Count 3.79 M/mm3 (3.80-5.20); White Blood Cell Count 15.42 K/mm3 (4.00-11.30)
[2021-03-04 05:03] LABS: Anion Gap 8 mmol/L (6-16); Blood Urea Nitrogen 45 mg/dL (8-24); Bun/Creatinine Ratio 45.9 (12.0-20.0); CO2, Blood 24 mmol/L (21-32); Calcium, Blood 8.6 mg/dL (8.5-10.1); Chloride, Blood 114 mmol/L (98-108); Creatinine, Blood 0.98 mg/dL (0.40-1.00); Glomerular Filtration Rate >60 (60-); Glucose, Blood 83 mg/dL (70-99); Potassium, Blood 3.7 mmol/L (3.5-5.5); Sodium, Blood 146 mmol/L (136-145)
--- NOTE | 2021-03-04 06:13 | NUR ---
SHIFT SUMMARY PT MORE ALERT & CONVERSIVE THIS AM THOUGH SPEECH STILL REMAINS GARBLED & MUMBLED. PT ORIENTED TO SELF & LOCATION, FOLLOWING SOME INSTRUCTIONS THIS AM. PT BP ELEVATED, MEDICATED W/ PRN IV HYDRALAZINE X1 & PRN IV LABETELOL X1 THIS SHIFT W/ IMPROVEMENT. VSS. MONITOR SHOWING SB-SR, HR 55-80's. NC TITRATED FROM 2L TO 4L THIS SHIFT FOR SPO2 > 92%. PT RESTLESS & PULLING AT LINES BEGINNING OF SHIFT. PT MEDICATED W/ PRN IV DILAUDID W/ PT THEN RESTFUL & NO LONGER PULLING AT LINES. NILSON VEST & BSWR IN PLACE PER ORDER. MARC CATH PATENT & DRAINING. PT NPO, REQUESTING COFFEE & JUICE THIS AM. PT REMINDED OF NEED TO WAIT FOR ST RE-EVAL. NO OTHER EVENTS.
--- NOTE | 2021-03-04 07:22 | NUR ---
ASSUMED CARE: PT ON ROOM AIR SATTING MID 90S. BILATERAL WRIST RESTRAINTS AND NILSON IN PLACE. PT VERY RESTLESS IN BED. NIGHT RN STATES DILAUDID GIVEN TO PT AND HELPED WITH AGITATION DURING NOC SHIFT.
[2021-03-04 12:29] LABS: Vancomycin, Trough 20.9 ug/mL (5.0-10.0)
--- NOTE | 2021-03-04 19:37 | NUR ---
REPORT CALLED TO VASILE HONG ON MEDICAL FLOOR. PT CURRENTLY GIVEN BREATHING TX BUT ROOM AIR OTHERWISE. NSR ON TELE. NILSON AND WRIST RESTRAINTS IN PLACE. CALL TO PT'S S.O. TO LET HIM KNOW OF TRANSFER TO ROOM 348
--- NOTE | 2021-03-04 20:26 | NUR ---
LEAVING ICU PT TRANSFERED TO MEDICAL FLOOR ROOM 348 AT 2000 VIA ICU BED. MEDICATIONS AND PERSONAL BELONGINGS WITH PT.
--- NOTE | 2021-03-04 21:43 | NUR ---
2010 REPORT RECEIVED FROM VASILE KEARNEY VIA ICU; PT RECEIVED VIA TRANSFER FROM ICU 6; PT TRANSFERRED TO BED X3 ASSIST; PTS BILATERAL SOFT WRIST RESTRAINTS AND MARC REAPPLIED; PT ALERT AND ORIENTED X 1.
--- NOTE | 2021-03-05 02:35 | NUR ---
0159 Pt increasingly agitated and attempting climb OOB and pull at lee catheter while straining at restraints: Lorazapam 2mg IVP given. 0235 PT STILL AGITATED AND UNABLE TO FOLLOW REDIRECTIONS; HALDOL 4MG IVP GIVEN.
--- NOTE | 2021-03-05 04:37 | NUR ---
SHIFT SUMMARY: 60 Y/O FEMALE HAD VERY RESTLESS NIGHT AT TIMES WITH PATIENT VERY CONFUSED AND ATTEMPTING CLIMB OOB, PULLING AT MARC CATHETER AND POWER GLIDES; PT WAS THEN ADVANCED IN RESTRAINTS TO 4 POINT AFTER (ATIVAN 2MG IVP X 2 AND HALDOL 4MG IVP X 1 GIVEN WITH MINIMAL RESULTS); PT ON DROPLET ISOLATION FOR COVID19; BED ALARM APPLIED, BED LOW POSITION WITH CALL LIGHT AT SIDE.
[2021-03-05 05:05] LABS: BASOPHILS ABSOLUTE AUTO 0.06 K/mm3 (0.00-0.23); BASOPHILS PERCENT AUTO 0 % (0-2); EOSINOPHILS ABSOLUTE AUTO 0.15 K/mm3 (0.00-0.68); EOSINOPHILS PERCENT AUTO 1 % (0-6); Hematocrit 40.1 % (33.0-51.0); Hemoglobin 13.2 g/dL (11.5-16.0); IMMATURE GRAN ABSOLUTE AUTO 0.36 K/mm3 (0.00-0.10); IMMATURE GRAN PERCENT AUTO 2 % (0-1); LYMPHOCYTES ABSOLUTE AUTO 2.47 K/mm3 (0.84-5.20); LYMPHOCYTES PERCENT AUTO 11 % (21-46); MONOCYTES ABSOLUTE AUTO 1.47 K/mm3 (0.16-1.47); MONOCYTES PERCENT AUTO 7 % (4-13); Mean Corpuscular HGB 31.1 pg (26.0-34.0); Mean Corpuscular HGB Conc 32.9 g/dL (31.5-36.5); Mean Corpuscular Volume 95 fL (80-100); Mean Platelet Volume 10.7 fL (9.1-12.4); NEUTROPHILS ABSOLUTE AUTO 17.79 K/mm3 (1.96-9.15); NEUTROPHILS PERCENT AUTO 80 % (41-73); Platelet Count 220 K/mm3 (150-400); RDW Coefficient Variation 13.7 % (11.7-14.2); RDW Standard Deviation 47.1 fL (35.1-46.3); Red Blood Cell Count 4.24 M/mm3 (3.80-5.20)
[2021-03-05 05:29] LABS: Albumin, Blood 2.8 g/dL (3.4-5.0); Anion Gap 8 mmol/L (6-16); Blood Urea Nitrogen 53 mg/dL (8-24); Bun/Creatinine Ratio 47.3 (12.0-20.0); CO2, Blood 22 mmol/L (21-32); Calcium, Blood 8.8 mg/dL (8.5-10.1); Chloride, Blood 117 mmol/L (98-108); Creatinine, Blood 1.12 mg/dL (0.40-1.00); Glomerular Filtration Rate 52 (60-); Glucose, Blood 96 mg/dL (70-99); Magnesium, Blood 2.5 mg/dL (1.6-2.4); Phosphorus, Blood 4.2 mg/dL (2.5-4.9); Potassium, Blood 3.5 mmol/L (3.5-5.5); Sodium, Blood 147 mmol/L (136-145)
[2021-03-05 12:05] LABS: Vancomycin, Trough 21.2 ug/mL (5.0-10.0)
--- NOTE | 2021-03-05 19:41 | NUR ---
SHIFT SUMMARY: A&O X 0 AT START OF SHIFT, CONFUSED AND MUMBLING INCOHERENTLY. BILATERAL SOFT WRIST AND ANKLE RESTRAINTS AND NILSON VEST IN PLACE FOR PT SAFETY. TELEMETRY SHOWED SR, RATE 80-90'S. DENIED PAIN. UNABLE TO FEED SELF, NEEDS ASSISTANCE. MARC DRAINING YELLOW/PINK URINE. HAD BEEN PLACED ON 4 L/MIN NC O/N, BUT O2 SAT THIS MORNING > 92% SO O2 REMOVED. ERNESTO POWERGLIDE DOES NOT DRAW; REMOVED. VANCO TROUGH DRAWN FROM JAN POWERGLIDE. BY THE AFTERNOON, PT MUCH MORE ALERT, KNOWS NAME, , AND LOCATION; COOPERATIVE AT TIMES. HAD VISIT FROM SPOUSE.
[2021-03-06 05:53] LABS: Hematocrit 36.9 % (33.0-51.0); Hemoglobin 12.4 g/dL (11.5-16.0); Mean Corpuscular HGB 31.8 pg (26.0-34.0); Mean Corpuscular HGB Conc 33.6 g/dL (31.5-36.5); Mean Corpuscular Volume 95 fL (80-100); Mean Platelet Volume 10.9 fL (9.1-12.4); Platelet Count 228 K/mm3 (150-400); RDW Coefficient Variation 13.4 % (11.7-14.2); RDW Standard Deviation 45.8 fL (35.1-46.3)
--- NOTE | 2021-03-06 05:54 | NUR ---
SHIFT SUMMARY A/O TO SELF ONLY, NON VIOLENT RESTRAINTS IN PLACE FOR SAFETY. QUIETY MUMBLING INCOHERENTLY T/O THE NIGHT WITH SHORT PERIODS OF SLEEP. CURRENTLY ON RA WITH SATS GREATER THAN 92. MARC PATENT AND DRAINING PINKISH/RED URINE. VSS, NO ACUTE CHANGES AT THIS TIME. BED IN LOWEST POSITION WITH CALL LIGHT IN REACH. WILL CONTINUE TO MONITOR AND REPORT TO ONCOMING RN.
[2021-03-06 06:13] LABS: Alanine Aminotransfer (ALT/SGP 60 U/L (12-78); Albumin, Blood 2.9 g/dL (3.4-5.0); Albumin/Globulin Ratio 0.6 (0.8-1.8); Alk Phos 114 U/L (50-136); Anion Gap 8 mmol/L (6-16); Aspartate Aminotrans (AST/SGOT 33 U/L (12-37); Bilirubin, Total 0.7 mg/dL (0.1-1.0); Blood Urea Nitrogen 40 mg/dL (8-24); Bun/Creatinine Ratio 38.1 (12.0-20.0); C-REACTIVE PROTEIN, EXT RANGE 0.821 mg/dL (0.000-0.300); CO2, Blood 18 mmol/L (21-32); Calcium, Blood 8.7 mg/dL (8.5-10.1); Chloride, Blood 116 mmol/L (98-108); Creatinine, Blood 1.05 mg/dL (0.40-1.00); Globulin, Blood 4.7 g/dL (2.2-4.0); Glomerular Filtration Rate 56 (60-); Glucose, Blood 113 mg/dL (70-99); Phosphorus, Blood 2.9 mg/dL (2.5-4.9); Potassium, Blood 3.3 mmol/L (3.5-5.5); Sodium, Blood 142 mmol/L (136-145); Total Protein, Blood 7.6 g/dL (6.4-8.2)
[2021-03-06 16:33] LABS: Vancomycin, Trough 15.1 ug/mL (5.0-10.0)
--- NOTE | 2021-03-06 17:43 | NUR ---
SHIFT SUMMARY: NO ACUTE EVENTS. MORE ALERT TODAY, BETTER ABLE TO FOLLOW DIRECTIONS, BUT STILL IMPULSIVE. IN NILSON VEST WITH 4 SIDE RAILS UP, VERY HIGH FALL RISK. MARC REMOVED, VOIDING PINK URINE VIA ATTENDS OR BSC. TELEMETRY DISCONTINUED. DYSPNEA ON EXERTION, ON ROOM AIR. SKIN INTACT. HAD VISIT FROM DAUGHTER TODAY.
--- NOTE | 2021-03-07 04:13 | NUR ---
SHIFT SUMMARY A/O TO SELF AND FAMILY. SPEECH IS SLOWLY STARTING TO IMPROVE. CONT/INCONT, 2 MAX ASSIST TO BSC WITH FREQUENT CUES NEEDED. NONVIOLENT RESTRAINTS IN PLACE FOR SAFETY. CURRENTLY ON RA WITH SATS GREATER THAN 92. VSS, NO ACUTE CHANGES AT THIS TIME. BED IN LOWEST POSITION WITH CALL LIGHT IN REACH. WILL CONTINUE TO MONITOR AND REPORT TO ONCOMING RN.
[2021-03-07 05:01] LABS: Hematocrit 32.1 % (33.0-51.0); Hemoglobin 10.6 g/dL (11.5-16.0); Mean Corpuscular HGB 31.2 pg (26.0-34.0); Mean Corpuscular Volume 94 fL (80-100); Mean Platelet Volume 11.1 fL (9.1-12.4); Platelet Count 165 K/mm3 (150-400); RDW Coefficient Variation 13.3 % (11.7-14.2); RDW Standard Deviation 45.4 fL (35.1-46.3); White Blood Cell Count 11.93 K/mm3 (4.00-11.30)
[2021-03-07 05:26] LABS: Alanine Aminotransfer (ALT/SGP 59 U/L (12-78); Albumin, Blood 2.3 g/dL (3.4-5.0); Albumin/Globulin Ratio 0.6 (0.8-1.8); Alk Phos 98 U/L (50-136); Anion Gap 7 mmol/L (6-16); Aspartate Aminotrans (AST/SGOT 30 U/L (12-37); Bilirubin, Total 0.6 mg/dL (0.1-1.0); Blood Urea Nitrogen 28 mg/dL (8-24); Bun/Creatinine Ratio 29.7 (12.0-20.0); CO2, Blood 19 mmol/L (21-32); Calcium, Blood 7.7 mg/dL (8.5-10.1); Chloride, Blood 117 mmol/L (98-108); Creatinine, Blood 0.94 mg/dL (0.40-1.00); Globulin, Blood 3.8 g/dL (2.2-4.0); Glomerular Filtration Rate >60 (60-); Glucose, Blood 94 mg/dL (70-99); Phosphorus, Blood 2.8 mg/dL (2.5-4.9); Potassium, Blood 3.3 mmol/L (3.5-5.5); Sodium, Blood 143 mmol/L (136-145); Total Protein, Blood 6.1 g/dL (6.4-8.2)
--- NOTE | 2021-03-07 13:42 | NUR ---
BLACK STOOL PT HAD BM. BLACK IN COLOR. DR. WEBER NOTIFIED. OCCULT STOOL SAMPLE ORDERED.
--- NOTE | 2021-03-07 17:39 | NUR ---
SHIFT SUMMARY PT DROWSY T/O SHIFT, BUT OVERALL MENTATION IS IMPROVING. PT APPETTITE IMPROVING WELL. IV FLUIDS DCED. PT TAKEN OUT OF RESTRAINTS FOR APPROX AN HOUR. PT EDUCATED TO CALL BEFORE SHE GETS UP, WITHIN 15 MINUTES PT TRANSFERED HERSELF TO BED AND ALMOST FELL DOWN. DR. WEBER GAVE VERBAL ORDER TO REAPPLY NILSON VEST. PT AGREEABLE TO PLACING THE VEST BACK ON. BLACK STOOL REPORTED TO DR. WEBER EARLIER TODAY. STOOL SAMPLE STILL NEEDED. NO OTHER ACUTE CHANGES IN ASSESSMENT AT THIS TIME. VS REVIEWED. PT SLEEPING IN BED. ALARM SET. CALL LIGHT IN REACH.
--- NOTE | 2021-03-08 06:11 | NUR ---
SHIFT SUMMARY A/O TO SELF AND FAMILY. PT IS MORE ALERT AND SPEECH CONTINUES TO IMPROVE. SOMETIMES USES CALL LIGHT BUT STILL REMAINS IMPULSIVE AND TRYING TO GET OOB. NILSON IN PLACE FOR SAFETY. CONT/INCONT, UP TO BSC WITH 1 ASSIST. VSS, NO ACUTE CHANGES AT THIS TIME. BED IN LOWEST POSITION WITH CALL LIGHT IN REACH. WILL CONTINUE TO MONITOR AND REPORT TO ONCOMING RN.
[2021-03-08 07:28] LABS: Hematocrit 35.5 % (33.0-51.0); Hemoglobin 11.7 g/dL (11.5-16.0); Mean Corpuscular HGB 31.3 pg (26.0-34.0); Mean Corpuscular Volume 95 fL (80-100); Mean Platelet Volume 11.4 fL (9.1-12.4); Platelet Count 172 K/mm3 (150-400); RDW Coefficient Variation 13.4 % (11.7-14.2); RDW Standard Deviation 45.7 fL (35.1-46.3); Red Blood Cell Count 3.74 M/mm3 (3.80-5.20); White Blood Cell Count 10.33 K/mm3 (4.00-11.30)
[2021-03-08 07:59] LABS: Calcium, Blood 8.5 mg/dL (8.5-10.1); Creatinine, Blood 1.35 mg/dL (0.40-1.00); Percent Saturation 25.4 % (15.0-50.0); Potassium, Blood 3.9 mmol/L (3.5-5.5)
[2021-03-08 09:08] LABS: Vancomycin, Trough 23.3 ug/mL (5.0-10.0)
[2021-03-08 15:44] LABS: Vancomycin, Trough 18.2 ug/mL (5.0-10.0)
--- NOTE | 2021-03-08 18:29 | NUR ---
SHIFT SUMMARY PT A/O X2-3. SHE IS ABLE TO ANSWER ORIENTATION QUESTIONS CORRECTLY BUT IS NOT AWARE TO OWN ABILITY. PT CURRENTLY RESTRAINED DUE TO BEING A HIGH FALL RISK AND VERY IMPULSIVE. THE PT SOMETIMES CALLS APPROPRIATELY BUT MOSTLY CALLS OUT. UP WITH A 1 ASSIST TO THE BA W/FWW AND GB. VOIDING CRANBERRY COLORED URINE. IN ISOLATION FOR COVID. PT REPORTS NO ISSUES WITH BREATHING CURRENTLY. VSS. WILL REPORT TO YOLI BURNETTE.
--- NOTE | 2021-03-09 05:32 | NUR ---
SHIFT SUMMARY AOX3-SELF, FOLLOWING DIRECTIONS, PLACE, MONTH, YR. UNAWARE OWN ABILITY, IMPULSIVE & FORGETFUL @TIMES. IN NILSON FOR SAFETY SINCE PT FORGETS TO CALL FOR HELP & TRYS TO GET OOB ON OWN. HIGH FALL RISK, WEAK GAIT. 1 ASSIST c GB & FWW. IRRITABLE c STAFF @TIMES R/T CURRENT HEALTH CONDITION & NOT BEING ABLE TO GO HOME. DENIES SOB. SPO2 >90% ON RA. REPORTED HEARTBURN, INFORMED REESE & HE ORDERED TUMS. WENT TO GIVE TUMS & PT HAD EMESIS ALLOVER HERSELF & BED. CLEANED & GAVE ZOFRAN/TUMS, NO FURTHER EMESIS OR NAUSEA REPORTED. REPORTS 7/10 PAIN IN LOW BACK, STATES ITS FROM ENDOMETRIOSIS, MEDICATED c TYLENOL. PT STILL HAVING LIGHT CRANBERRY COLOR URINE. CALL LIGHT IN REACH, BED ALARM IN PLACE. WCTM.
--- NOTE | 2021-03-10 05:26 | NUR ---
SHIFT SUMMARY ALERT, ABLE TO MAKE NEEDS KNOWN. COOPERATIVE WITH CARE. CALLS AND ANSWERS QUESTIONS APPROPRIATELY. MULTIPLE REQUESTS FOR STAFF T/O SHIFT. C/O PAIN/DISCOMFORT TO LOW BACK/ABD; MEDICATED PER EMAR. APPEARED TO REST MINIMALLY. UP /c 1P ASSIST TO BSC. NILSON REMAINS IN PLACE FOR SAFTEY AND IMPULSIVITY. VERY EAGER TO RETURN HOME. NO ACUTE CHANGES NOTED OVERNIGHT. BED REMAINED IN LOWEST POSITION; ALARM ON. CALL LIGHT AND BELONGINGS WITHIN REACH. CONTINUE WITH CURRENT PLAN OF CARE. REPORT TO ONCOMING RN.
[2021-03-10 05:28] LABS: Hematocrit 33.9 % (33.0-51.0); Hemoglobin 11.4 g/dL (11.5-16.0); Mean Corpuscular HGB 32.1 pg (26.0-34.0); Mean Corpuscular HGB Conc 33.6 g/dL (31.5-36.5); Mean Corpuscular Volume 96 fL (80-100); Mean Platelet Volume 12.1 fL (9.1-12.4); Platelet Count 172 K/mm3 (150-400); RDW Coefficient Variation 13.9 % (11.7-14.2); RDW Standard Deviation 47.1 fL (35.1-46.3); Red Blood Cell Count 3.55 M/mm3 (3.80-5.20); White Blood Cell Count 10.67 K/mm3 (4.00-11.30)
[2021-03-10 06:07] LABS: Albumin, Blood 2.5 g/dL (3.4-5.0); Albumin/Globulin Ratio 0.6 (0.8-1.8); Bilirubin, Total 0.3 mg/dL (0.1-1.0); Bun/Creatinine Ratio 27.3 (12.0-20.0); Calcium, Blood 8.5 mg/dL (8.5-10.1); Creatinine, Blood 1.39 mg/dL (0.40-1.00); Globulin, Blood 4.3 g/dL (2.2-4.0); Potassium, Blood 4.1 mmol/L (3.5-5.5); Total Protein, Blood 6.8 g/dL (6.4-8.2)
[2021-03-10] MEDS ORDERED: Acetaminophen650 M1 PO (11:16)
[2021-03-10] MEDS ORDERED: OLAN10 PO (11:17)
[2021-03-10] MEDS ORDERED: Catapres0.2 MG PO (11:17)
[2021-03-10] MEDS ORDERED: ASPI81CH PO (11:17)
--- NOTE | 2021-03-10 12:58 | NUR ---
DISCHARGE DISCHARGE INSTRUCTIONS, MEDICATION LIST AND FOLLOW UP APPOINTMENT REVIEWED WITH PT AND HER DAUGHTER. PCP OFFICE WILL CONTACT AND ARRANGE A TELE APPOINTMENT, PER SE WITH HH, THE HH REFERRAL WILL NEED TO COME FROM HER PCP. QUESTIONS/CONCERNS ANSWERED. PT AND HER DAUGHTER VERBALLY INDICATED UNDERSTANDING OF ALL INSTRUCTIONS RECEIVED. PT ESCORTED OUT VIA W/C BY [facility]
== END 2021-03-10 12:35 | disposition home health service (06) | DRG 871 ==
LOC: ER 16:34 → ICUE 21:28 → PCU 21:28 → ICUE 02-25 13:38 → MEDS 03-04 20:10
PROVIDERS: Emergency Medicine; Internal Medicine; Internal Medicine Critical Care Medicine; Nurse Practitioner Acute Care; Pharmacist; Physician Assistant; ADMIT Internal Medicine
PROC: 8E0ZXY6 Isolation (ICD-10-PCS; principal; 2021-02-20)
PROC: XW033E5 Introduction of Remdesivir Anti-infective into Peripheral Vein, Percutaneous Approach, New Technology Group 5 (ICD-10-PCS; 2021-02-20)
PROC: 3E033PZ Introduction of Platelet Inhibitor into Peripheral Vein, Percutaneous Approach (ICD-10-PCS; 2021-02-23)
DX: A41.89 Other specified sepsis (principal); U07.1 COVID-19; J12.82 Pneumonia due to coronavirus disease 2019; G92 Toxic encephalopathy; J96.01 Acute respiratory failure with hypoxia; J15.212 Pneumonia due to Methicillin resistant Staphylococcus aureus; N39.0 Urinary tract infection, site not specified; N17.9 Acute kidney failure, unspecified; E87.2 Acidosis; J44.1 Chronic obstructive pulmonary disease with (acute) exacerbation; J44.0 Chronic obstructive pulmonary disease with (acute) lower respiratory infection; E87.0 Hyperosmolality and hypernatremia; I67.89 Other cerebrovascular disease; A41.51 Sepsis due to Escherichia coli [E. coli]; E87.6 Hypokalemia; E83.39 Other disorders of phosphorus metabolism; R65.20 Severe sepsis without septic shock; I48.0 Paroxysmal atrial fibrillation; N18.30 Chronic kidney disease, stage 3 unspecified; Z91.19 Patient's noncompliance with other medical treatment and regimen; Z78.1 Physical restraint status; I25.10 Atherosclerotic heart disease of native coronary artery without angina pectoris; F15.10 Other stimulant abuse, uncomplicated; I12.9 Hypertensive chronic kidney disease with stage 1 through stage 4 chronic kidney disease, or unspecified chronic kidney disease; F17.210 Nicotine dependence, cigarettes, uncomplicated; Z95.1 Presence of aortocoronary bypass graft; Z79.899 Other long term (current) drug therapy
CPT/HCPCS: 31720; 36415; 36600; 51702; 70450; 70470; 71045; 71260; 80048; 80053; 80069; 80202; 81001; 82140; 82550; 82607; 82728; 82746; 82803; 82947; 83540; 83550; 83605; 83735; 83880; 83930; 84100; 84145; 84295; 84443; 84484; 85025; 85027; 85379; 85610; 85651; 86140; 87040; 87070; 87077; 87086; 87147; 87186; 87205; 92526; 92610; 93005; 93010; 93306; 94640; 94760; 94762; 96365; 96375; 97116; 97162; 97166; 97530; 97535; 99285-25; A9270; C1751; C9113; G0480; J0360; J0456; J0696; J1100; J1170; J1630; J1650; J2060; J2405; J2543; J3010; J3370; J3411; J3480; J7030; J7050; J7060; J7070; J7120; Q9967

== ENCOUNTER 2021-03-18 10:50 | Emergency (ER) | payer OTHER ==
[~2021-03-18] VITALS: Ht 157.5 cm; Wt 68.0 kg
[~2021-03-18 10:50] MED LIST changes: +ASPI81CH PO; +Acetaminophen650 M1 PO; +Catapres0.2 MG PO; +OLAN10 PO
[2021-03-18 11:49] LABS: Source, Urine Voided
[2021-03-18 11:52] LABS: Appearance, Urine Clear (Clear); Bilirubin, Urine Neg (Neg); Blood, Urine Neg (Neg); Color, Urine Yellow (P-Yellow); Glucose Qualitative, Urine Neg (Neg); Ketones, Urine Neg (Neg); Leukocyte Esterase, Urine Neg (Neg); Nitrite, Urine Neg (Neg); Protein, Urine Neg (Neg); Urobilinogen, Urine NORM (Normal)
== END 2021-03-18 12:14 | disposition left against medical advice (07) ==
LOC: ER 10:50
PROVIDERS: Emergency Medicine
DX: N39.0 Urinary tract infection, site not specified (principal); Z53.21 Procedure and treatment not carried out due to patient leaving prior to being seen by health care provider; Z86.16 Personal history of COVID-19
CPT/HCPCS: 81003; P9612

== ENCOUNTER 2021-05-02 13:41 | Emergency (ER) | payer OTHER ==
[~2021-05-02] VITALS: Ht 157.5 cm; Wt 72.6 kg
[2021-05-02 14:57] LABS: SARS-Cov-2 (COVID-19) PCR, MMC POSITIVE (NEGATIVE)
[2021-05-02 15:14] LABS: BASOPHILS ABSOLUTE AUTO 0.14 K/mm3 (0.00-0.23); BASOPHILS PERCENT AUTO 1 % (0-2); EOSINOPHILS ABSOLUTE AUTO 0.28 K/mm3 (0.00-0.68); EOSINOPHILS PERCENT AUTO 2 % (0-6); IMMATURE GRAN ABSOLUTE AUTO 0.37 K/mm3 (0.00-0.10); IMMATURE GRAN PERCENT AUTO 3 % (0-1); LYMPHOCYTES ABSOLUTE AUTO 2.32 K/mm3 (0.84-5.20); LYMPHOCYTES PERCENT AUTO 19 % (21-46); MONOCYTES PERCENT AUTO 11 % (4-13); Mean Corpuscular HGB 31.3 pg (26.0-34.0); Mean Corpuscular HGB Conc 32.6 g/dL (31.5-36.5); Mean Corpuscular Volume 96 fL (80-100); Mean Platelet Volume 10.5 fL (9.1-12.4); NEUTROPHILS ABSOLUTE AUTO 7.55 K/mm3 (1.96-9.15); NEUTROPHILS PERCENT AUTO 63 % (41-73); Platelet Count 301 K/mm3 (150-400); RDW Coefficient Variation 14.6 % (11.7-14.2); RDW Standard Deviation 51.7 fL (35.1-46.3); Red Blood Cell Count 4.47 M/mm3 (3.80-5.20); White Blood Cell Count 11.96 K/mm3 (4.00-11.30)
[2021-05-02 15:46] LABS: Albumin, Blood 2.8 g/dL (3.4-5.0); Albumin/Globulin Ratio 0.5 (0.8-1.8); Bilirubin, Total 1.1 mg/dL (0.1-1.0); Bun/Creatinine Ratio 23.8 (12.0-20.0); Calcium, Blood 9.1 mg/dL (8.5-10.1); Creatinine, Blood 1.05 mg/dL (0.40-1.00); Globulin, Blood 5.7 g/dL (2.2-4.0); Potassium, Blood 4.1 mmol/L (3.5-5.5); Total Protein, Blood 8.5 g/dL (6.4-8.2)
[2021-05-02] MEDS ORDERED: Prednisone50 MG PO (18:03)
[2021-05-02] MEDS ORDERED: AZIT500 PO (18:03)
[2021-05-02] MEDS ORDERED: Catapres-Tts 21 EACH TOP (18:03)
== END 2021-05-02 18:37 | disposition home or self-care (01) ==
LOC: ER 13:41
PROVIDERS: Physician Assistant
DX: U07.1 COVID-19 (principal); J18.9 Pneumonia, unspecified organism; J44.9 Chronic obstructive pulmonary disease, unspecified; J98.01 Acute bronchospasm; I10 Essential (primary) hypertension; I25.10 Atherosclerotic heart disease of native coronary artery without angina pectoris; F17.210 Nicotine dependence, cigarettes, uncomplicated; Z95.1 Presence of aortocoronary bypass graft
CPT/HCPCS: 71046; 80053; 84145; 85025; 93005; 93010; 96361; 96365; 96375; 99285-25; A9270; J2930; J3475; J7030; U0004

== ENCOUNTER 2021-07-11 12:19 | Inpatient (IN) | payer OTHER ==
[~2021-07-11] VITALS: Ht 157.5 cm; Wt 99.4 kg
[~2021-07-11 12:19] MED LIST changes: +AMLO5 PO; +Aspir 8181 MG PO; +Catapres-Tts 21 EACH TOP; +DOXY100 PO; +HYDHCL25 PO; +NARCAN4 M1; +Prednisone50 MG PO
[2021-07-11 14:42] LABS: Source, Urine Clean Catch
[2021-07-11 14:54] LABS: Appearance, Urine Clear (Clear); Bilirubin, Urine Neg (Neg); Blood, Urine Neg (Neg); Color, Urine Yellow (P-Yellow); Glucose Qualitative, Urine Neg (Neg); Ketones, Urine Neg (Neg); Leukocyte Esterase, Urine Neg (Neg); Nitrite, Urine Neg (Neg); Protein, Urine 2+ (Neg); Specific Gravity, Urine 1.015 (1.003-1.022); Urobilinogen, Urine NORM (Normal)
[2021-07-11 15:08] LABS: U Amphetamine Screen DETECTED; U Barbituate Screen Not Detected; U Benzodiazapine Screen Not Detected; U Buprenorphine Screen Not Detected; U Cannabinoids Screen Not Detected; U Cocaine Screen Not Detected; U Methadone Screen Not Detected; U Methamphetamine Screen DETECTED; U Opiates Screen DETECTED; U Oxycodone Screen Not Detected; U Phencyclidine Screen Not Detected; U Propoxyphene Screen Not Detected
[2021-07-11 15:20] LABS: Hematocrit 31.1 % (33.0-51.0); Hemoglobin 10.2 g/dL (11.5-16.0); Mean Corpuscular HGB 29.7 pg (26.0-34.0); Mean Corpuscular HGB Conc 32.8 g/dL (31.5-36.5); Mean Corpuscular Volume 91 fL (80-100); Mean Platelet Volume 11.3 fL (9.1-12.4); NRBC ABSOLUTE 0.18 K/mm3 (0.00-0.02); NRBC Auto 1.1 /100 WBC (0.0-0.2); Platelet Count 201 K/mm3 (150-400); RDW Coefficient Variation 16.2 % (11.7-14.2); RDW Standard Deviation 53.4 fL (35.1-46.3); Red Blood Cell Count 3.43 M/mm3 (3.80-5.20); White Blood Cell Count 16.38 K/mm3 (4.00-11.30)
[2021-07-11 15:35] LABS: Red Blood Cells, Urine 0-2 /hpf (0-2)
[2021-07-11 15:43] LABS: Bacteria Few /hpf; Squamous Epithelial Cells Mod /hpf (Few); Yeast/Fungi Urine Many /hpf
[2021-07-11 15:44] LABS: Albumin, Blood 1.6 g/dL (3.4-5.0); Albumin/Globulin Ratio 0.4 (0.8-1.8); Bilirubin, Total 0.8 mg/dL (0.1-1.0); Bun/Creatinine Ratio 27.5 (12.0-20.0); Calcium, Blood 9.5 mg/dL (8.5-10.1); Creatinine, Blood 2.36 mg/dL (0.40-1.00); Globulin, Blood 4.4 g/dL (2.2-4.0); Potassium, Blood 4.6 mmol/L (3.5-5.5)
[2021-07-11 16:04] LABS: BAND PERCENT MAN 37 % (0-8); BASOPHILS PERCENT MAN 0 % (0-2); EOSINOPHILS ABSOLUTE MAN 0.16 K/mm3 (0.00-0.68); EOSINOPHILS PERCENT MAN 1 % (0-6); LYMPHOCYTES ABSOLUTE MAN 1.31 K/mm3 (0.84-5.20); LYMPHOCYTES PERCENT MAN 8 % (21-46); METAMYELOCYTE ABSOLUTE MAN 0.32 K/mm3 (0.00-0.00); METAMYELOCYTE PERCENT MAN 2 % (0-0); MONOCYTES ABSOLUTE MAN 0.81 K/mm3 (0.16-1.47); MONOCYTES PERCENT MAN 5 % (4-13); NEUTROPHILS ABSOLUTE MAN 13.75 K/mm3 (1.96-9.15); SEG NEUTROPHILS PERCENT MAN 47 % (41-73); TOTAL CELLS COUNTED 100
[2021-07-11] MEDS ORDERED: FLUTICASONE-SA1 EAC2 INH (17:40)
[2021-07-11] MEDS ORDERED: IPRAT-ALBUT 0.5-3 ML NEB (17:40)
[2021-07-11] MEDS ORDERED: PRED20 PO (17:42)
[2021-07-11] MEDS ORDERED: SPIR25 PO (17:42)
--- NOTE | 2021-07-11 20:15 | NUR ---
ASSUME CARE NOTE: PT ARRIVED FROM OR ON VENT. RECEIVED BEDSIDE REPORT FROM VASILE GURROLA. SHE IS STATUS POST OP FROM A EX LAP WITH RIGHT HEMICOLECTOMY WITH WOUND VAC AT 70MMHG WITH AN OPEN ABDOMEN. PT CURRENTLY SATING 96%, HR IN THE 90'S, AND SBP IN 110'S. ETT IS 7.5 23 AT THE LIP. VENT SETTINGS ARE ACVC 12/450/5/100%. STARTING PROPOFOL AT 15MCG/KG/MIN AND NS AT 150ML/HR. SWB RESTRAINTS APPLIED. PUPILS ARE 4MM, EQUAL, ROUND, REACTIVE, AND BRISK. SHE DOES NOT MOVE ANY EXTREMITIES OR FOLLOW COMMANDS. MARC IN PLACE DRAINING YELLOW URINE TO GRAVITY. NGT IN RIGHT NARE IS CLAMPED AND WILL BE PLACED TO L.I.S. PER DR. PUCKETT. SCDS IN PLACE. SHE HAS BITALERAL HEEL PRESSURE ULCERS AND BILAT FEET EDEMA. SEE SHIFT ASSESSMENT FOR DETAILS.
[2021-07-11 23:30] LABS: PCO2 Arterial 41.8 mmHg (35-45); PO2 Arterial 236 mmHg (80-100); pH Blood Arterial 7.31 (7.35-7.45)
[2021-07-12 04:12] LABS: Hematocrit 23.4 % (33.0-51.0); Hemoglobin 7.6 g/dL (11.5-16.0); LYMPHOCYTES ABSOLUTE AUTO 0.32 K/mm3 (0.84-5.20); LYMPHOCYTES PERCENT AUTO 3 % (21-46); MONOCYTES ABSOLUTE AUTO 0.38 K/mm3 (0.16-1.47); MONOCYTES PERCENT AUTO 3 % (4-13); Mean Corpuscular HGB 29.2 pg (26.0-34.0); Mean Corpuscular HGB Conc 32.5 g/dL (31.5-36.5); Mean Corpuscular Volume 90 fL (80-100); Mean Platelet Volume 11.3 fL (9.1-12.4); NRBC ABSOLUTE 0.06 K/mm3 (0.00-0.02); NRBC Auto 0.5 /100 WBC (0.0-0.2); Platelet Count 121 K/mm3 (150-400); RDW Coefficient Variation 16.1 % (11.7-14.2); RDW Standard Deviation 51.7 fL (35.1-46.3); White Blood Cell Count 11.41 K/mm3 (4.00-11.30)
[2021-07-12 04:13] LABS: BASOPHILS PERCENT AUTO 0 % (0-2); EOSINOPHILS ABSOLUTE AUTO 0.01 K/mm3 (0.00-0.68); EOSINOPHILS PERCENT AUTO 0 % (0-6); IMMATURE GRAN ABSOLUTE AUTO 0.05 K/mm3 (0.00-0.10); IMMATURE GRAN PERCENT AUTO 0 % (0-1); NEUTROPHILS ABSOLUTE AUTO 10.65 K/mm3 (1.96-9.15); NEUTROPHILS PERCENT AUTO 93 % (41-73)
[2021-07-12 04:44] LABS: Albumin, Blood 2.4 g/dL (3.4-5.0); Anion Gap 11 mmol/L (6-16); Blood Urea Nitrogen 56 mg/dL (8-24); Bun/Creatinine Ratio 30.6 (12.0-20.0); CO2, Blood 22 mmol/L (21-32); Calcium, Blood 7.7 mg/dL (8.5-10.1); Chloride, Blood 107 mmol/L (98-108); Creatinine, Blood 1.83 mg/dL (0.40-1.00); Glomerular Filtration Rate 28 (60-); Glucose, Blood 138 mg/dL (70-99); Phosphorus, Blood 7.7 mg/dL (2.5-4.9); Potassium, Blood 3.6 mmol/L (3.5-5.5); Sodium, Blood 140 mmol/L (136-145)
[2021-07-12 06:00] LABS: BAND PERCENT MAN 23 % (0-8); BASOPHILS PERCENT MAN 0 % (0-2); EOSINOPHILS PERCENT MAN 0 % (0-6); LYMPHOCYTES ABSOLUTE MAN 0.79 K/mm3 (0.84-5.20); LYMPHOCYTES PERCENT MAN 7 % (21-46); METAMYELOCYTE ABSOLUTE MAN 0.22 K/mm3 (0.00-0.00); METAMYELOCYTE PERCENT MAN 2 % (0-0); MONOCYTES ABSOLUTE MAN 0.22 K/mm3 (0.16-1.47); MONOCYTES PERCENT MAN 2 % (4-13); NEUTROPHILS ABSOLUTE MAN 10.15 K/mm3 (1.96-9.15); SEG NEUTROPHILS PERCENT MAN 66 % (41-73); TOTAL CELLS COUNTED 100
--- NOTE | 2021-07-12 06:42 | NUR ---
SHIFT SUMMARY: PT REMAINS INTUBATED AND SEDATED IN SWB RESTRAINTS. SHE NOW OPENS HER EYES BUT DOES NOT TRACK OR FOLLOW COMMANDS. SHE HAS A WEAK COUGH/GAG REFLEX. VENT SETTINGS ARE NOW: ACVC 12/450/8/45%. VITALS WNL. MARC IS STILL DRAINING CLEAR YELLOW URINE TO GRAVITY. NO BM THIS SHIFT. NGT IS TO LIS. ABDOMINAL WOUND IS STILL TO WOUND VAC AT 70MMHG AND REMAINS INTACT. PROPOFOL IS RUNNING AT 20MCG/KG/MIN WITH NS AT 150ML/HR. WILL REPORT TO ONCOMING RN WHEN AVAILABLE.
--- NOTE | 2021-07-12 08:30 | NUR ---
INITIAL ASSESSMENT PATIENT INTUBATED AND SEDATED. PATIENT RESPONDS TO PAINFUL STIMULI AND ORAL CARE. L ARM MOVES PURPOSEFULLY TOWARD ETT. PATIENT AFEBRILE. PATIENT DOES LOOK UNCOMFORTABLE AT TIMES. WILL SPEAK TO ABOUT GETTING PAIN MED ON BOARD. PATIENT ON ACVC 12, TV 450, PEEP 5 AND 30% FIO2. ETT 7.5 AND 23 AT THE LIP. LUNGS COARSE THROUGHOUT. SCANT AMOUNT OF THICK, MAROON/ MURRAY SPUTUM SUCTIONED FROM ETT. PATIENT IN SR WITH BBB, HR 80S TO 90S. SBP LOW 100S T0 120S. R RADIAL PULSE 2+; ALL OTHER PULSES 1+ IN STRENGTH. PATIENT THIGHS, BLES AND BILAT FEET EDEMATOUS. MIDLINE OPEN ABD WITH WOUND VAC IN PLACE. WOUND VAC SET AT 70 MM HG; SEROSANGUINOUS OUTPUT NOTED. NG TO R NARE TO LIS; SMALL AMOUNT OF COFFEE GROUND DRAINAGE NOTED. ABDOMEN MODERATELY DISTENDED WITH HYPOACTIVE BS NOTED. DATE OF LAST BM UNKNOWN. MARC IN PLACE DRAINING YELLOW COLORED URINE. SCATTERED BRUISES NOTED TO BILAT ARMS. SCATTERED CIRCULAR SCARS NOTED T/O BODY. FINGERS CLUBBED, COOL AND CYANOTIC. PRESSURE ULCERS NOTED TO FEET. PROPOFOL INFUSING AT 30 MCG/ KG/ MINUTE AND NS AT 150 MLS/ HOUR. PATIENT RECEIVING ZOSYN. BED LOW, CALL LIGHT IN REACH. WILL CONTINUE TO MONITOR PATIENT FREQUENTLY THROUGHOUT SHIFT.
--- NOTE | 2021-07-12 12:45 | NUR ---
PATIENT AFEBRILE. PATIENT IS NOW ABLE TO OPEN EYES TO VOICE AND NOD/ SHAKE HEAD TO ANSWER YES AND NO QUESTIONS. PATIENT SHAKES HEAD "NO" WHEN ASKED IF IN PAIN. HR IN THE 80S. SBP 90S TO 120S. NO OTHER ACUTE CHANGES TO NOTE ON AT THIS TIME.
--- NOTE | 2021-07-12 16:15 | NUR ---
SHIFT SUMMARY PATIENT REMAINED INTUBATED AND ON SEDATION. PATIENT REMAINS RESPONDING TO PAIN AND HAS BEEN ANSWERING YES/ NO QUESTIONS WITH NODDING/ SHAKING OF HEAD. PATIENT REMAINED AFEBRILE. PRN DILAUDID GIVEN OT FOR SIGNS OF PAIN. PATIENT HAS SHOOK HEAD "NO" TO PAIN THE REST OF THE DAY. PATIENT HAS REMAINED ON AC 12, TV 450, PEEP 5 AND 30% FIO2. LUNGS REMAINED COARSE. PATIENT REMAINED IN SR, HR 80S TO 90S. SBP 90S TO 120S. PATIENT THIGHS AND BLES REMAIN EDEMATOUS. MIDLINE OPEN ABD REMAINS WITH WOUND VAC. 650 MLS SEROSANGUINOUS DRAINAGE RECORDED THIS AM. R NG REMAINS TO LIS. NO BM THIS SHIFT. MARC DRAINED ADEQUATE AMOUNT OF YELLOW COLORED URINE. NO CHANGES NOTED TO SKIN. PATIENT HAS BEEN REPOSITIONED Q2H. PROPOFOL AT 30 MCG/ KG/ MINUTE. NS DECREASED FROM 150 TO 75 MLS/ HOUR THIS SHIFT. BED LOW, CALL LIGHT IN REACH. REPORT HAS BEEN GIVEN TO ASSUMING NURSE.
--- NOTE | 2021-07-12 19:00 | NUR ---
ASSUME CARE NOTE: PT IS INTUBATED, SEDATED, AND IN SWB RESTRAINTS. VENT SETTINGS ARE: [facility] 12/450/8/45%. ALL VITALS WNL. SHE OPENS HER EYES SPONT AND CAN VERY WEAKLY HERNANDEZ BUT NOT TO COMMAND. PROPOFOL INFUSING AT 40MCG/KG/MIN AND NS AT 75ML/HR. MARC IN PLACE DRAINING CLEAR YELLOW URINE TO GRAVITY. RIGHT NARE NGT IS SET TO L.I.S. AND DRAINING DARK BROWN LIQUID. SHE HAS A MIDLINE OPEN ABDOMINAL WOUND WITH WOUND VAC IN PLACE DRAINING SEROSANGUINEOUS AT 70MM HG. HEEL PROTECTORS AND FOOT BOOTIES IN PLACE WITH SCDS APPLIED TO THE CALVES. SEE SHIFT ASSESSMENT FOR DETAILS.
[2021-07-13 03:51] LABS: BASOPHILS ABSOLUTE AUTO 0.04 K/mm3 (0.00-0.23); BASOPHILS PERCENT AUTO 0 % (0-2); Hematocrit 21.7 % (33.0-51.0); Hemoglobin 7.1 g/dL (11.5-16.0); LYMPHOCYTES ABSOLUTE AUTO 0.65 K/mm3 (0.84-5.20); LYMPHOCYTES PERCENT AUTO 6 % (21-46); MONOCYTES ABSOLUTE AUTO 0.52 K/mm3 (0.16-1.47); MONOCYTES PERCENT AUTO 5 % (4-13); Mean Corpuscular HGB 29.1 pg (26.0-34.0); Mean Corpuscular HGB Conc 32.7 g/dL (31.5-36.5); Mean Corpuscular Volume 89 fL (80-100); Mean Platelet Volume 10.9 fL (9.1-12.4); NRBC ABSOLUTE 0.03 K/mm3 (0.00-0.02); NRBC Auto 0.3 /100 WBC (0.0-0.2); Platelet Count 84 K/mm3 (150-400); RDW Coefficient Variation 16.3 % (11.7-14.2); RDW Standard Deviation 51.6 fL (35.1-46.3); Red Blood Cell Count 2.44 M/mm3 (3.80-5.20); White Blood Cell Count 11.33 K/mm3 (4.00-11.30)
[2021-07-13 03:55] LABS: EOSINOPHILS PERCENT AUTO 0 % (0-6); IMMATURE GRAN PERCENT AUTO 1 % (0-1); NEUTROPHILS ABSOLUTE AUTO 10.02 K/mm3 (1.96-9.15); NEUTROPHILS PERCENT AUTO 88 % (41-73)
[2021-07-13 04:06] LABS: Albumin, Blood 2.1 g/dL (3.4-5.0); Anion Gap 10 mmol/L (6-16); Blood Urea Nitrogen 51 mg/dL (8-24); Bun/Creatinine Ratio 28.7 (12.0-20.0); CO2, Blood 22 mmol/L (21-32); Calcium, Blood 7.7 mg/dL (8.5-10.1); Chloride, Blood 112 mmol/L (98-108); Creatinine, Blood 1.78 mg/dL (0.40-1.00); Glomerular Filtration Rate 29 (60-); Glucose, Blood 112 mg/dL (70-99); Phosphorus, Blood 6.7 mg/dL (2.5-4.9); Potassium, Blood 2.9 mmol/L (3.5-5.5); Sodium, Blood 144 mmol/L (136-145)
--- NOTE | 2021-07-13 06:25 | NUR ---
SHIFT SUMMARY: NO ACUTE OVERNIGHT EVENTS. PATIENT REMAINS INTUBATED, SEDATED, AND IN SWB RESTRAINTS. OPENS EYES SPONT, CAN HERNANDEZ WEAKLY, BUT DOES NOT FOLLOW COMMANDS. NO SEDATION VACATION FOR PLANNED TRIP BACK TO THE O.R. TODAY. VENT SETTINGS ARE THE SAME AT [facility] 12/450/5/30%. ALL VITALS WNL. PROPOFOL INFUSING AT 50MCG/KG/MIN AND NS AT 75ML/HR. MARC REMAINS IN PLACE AND DRAINING YELLOW URINE TO GRAVITY. RIGHT NARE NGT STILL TO LIS. WOUND VAC STILL DRAINING SEROSANGUINOUS OUTPUT. NO BM THIS SHIFT. SHE REMAINED AFEBRILE T/O THE SHIFT. POTASSIUM CAME BACK LOW WITH MORNING MEDS, PER DR. LEIGH 1 TIME REPLACEMENT ORDERED. WILL REPORT TO ONCOMING RN WHEN AVAILABLE.
--- NOTE | 2021-07-13 06:29 | NUR ---
UPDATE: LABS SPOKE WITH DR. LEIGH IN REGARDS TO POTASSIUM OF 2.9. HE ORDERED 40MEQ KCL X 1. ORDERS PLACED.
--- NOTE | 2021-07-13 08:00 | NUR ---
Received report from Noc RN. Patient is intubated and sedated, she has 7.5 ET with vent settings of 12/450/30/5 with sats 100%. Patient has RIS and is infusing NS TKO, NS at 75, Propofol 50 mcg/kg/min. Patient has NG to right nares with light coffe ground/brown output. She has 14Fr Wang draining to gravity yellow urine in adequate amounts. She has mid line incsion with wound vac in place with serosanguinous output, moderate amounts. She has pink heel protectors bilaterally. She is in bilateral soft wrist restraints.
--- NOTE | 2021-07-13 09:29 | NUR ---
Dr Butcher by and will take to surgery after consent from around 12:30 and wants repreat potassium prior. No vent or gtt changes. patient opens eyes to verbal stimuli.
--- NOTE | 2021-07-13 09:32 | NUR ---
Dr Mercado has been in room to assess, no new orders. No vent or gtt setting changes. Propofol set changed out. Repositioned .
[2021-07-13 11:20] LABS: SARS-Cov-2 (COVID-19) PCR, MMC NEGATIVE (NEGATIVE)
--- NOTE | 2021-07-13 12:00 | NUR ---
Patient went to OR after prep from OR Nurse. No changes to vent or gtt settings. Covid test and stat potassium drawn prior to departure. Patient taken off vent and bagged by anesthesia, and RT present.
--- NOTE | 2021-07-13 12:38 | NUR ---
07/13/21 1238 MONICAEUN CAMPOS PT RECEIVING SCHEDULED IV ANTIBIOTICS PER ORDERS. PT NOTED TO HAVE PRE EXISTING MARC CATH PRIOR TO PROCEDURE.
--- NOTE | 2021-07-13 14:35 | NUR ---
Patient arrived back to ICU 13 from OR, hooked to monitor VSS. Placed patient back to NS at 75 ml/hr, Propofol 50 mcg/kg/min, NS TKO. Increased FiO2 45% for sats in high 80. She has midline incsion that was closed and dressing intact that is C/D/I. No new orders.
--- NOTE | 2021-07-13 16:30 | NUR ---
No significant changes with patient and b een resting on swedation well. Surgical site C/D/I and smallspot on dressing that has blood on it. Vent settings 12/450/30/5 and sats 99%. RIJ infusing Propofol at 50 mcg/kg/min, NS at 75 ml/hr and NS TKO. Wang continues to drain to gravity yellow urine adequate amounts. [place] heel protectors remain in place bilateral heels. Medication given per NOV.
--- NOTE | 2021-07-13 18:32 | NUR ---
No significant changes from last note. Patient remains sedated on Propofol at 50 mcg/kg/min. No vent setting changes and sats >95%. CBG 137 and no coverage. VSS, See EMR.
--- NOTE | 2021-07-14 06:21 | NUR ---
END OF SHIFT SUMMARY: - SEE PAPER CHARTING IN PATIENT BINDER - [facility] DOWNTIME OVERNIGHT - CHANGED TO PAPERCHARTING
[2021-07-14 06:42] LABS: BASOPHILS ABSOLUTE AUTO 0.06 K/mm3 (0.00-0.23); BASOPHILS PERCENT AUTO 1 % (0-2); Hematocrit 21.5 % (33.0-51.0); Hemoglobin 7.1 g/dL (11.5-16.0); LYMPHOCYTES ABSOLUTE AUTO 0.86 K/mm3 (0.84-5.20); LYMPHOCYTES PERCENT AUTO 8 % (21-46); MONOCYTES ABSOLUTE AUTO 0.51 K/mm3 (0.16-1.47); MONOCYTES PERCENT AUTO 5 % (4-13); Mean Corpuscular HGB 29.3 pg (26.0-34.0); Mean Corpuscular Volume 89 fL (80-100); NRBC ABSOLUTE 0.03 K/mm3 (0.00-0.02); NRBC Auto 0.3 /100 WBC (0.0-0.2); Platelet Count 61 K/mm3 (150-400); RDW Coefficient Variation 16.1 % (11.7-14.2); RDW Standard Deviation 51.5 fL (35.1-46.3); Red Blood Cell Count 2.42 M/mm3 (3.80-5.20)
[2021-07-14 06:58] LABS: EOSINOPHILS PERCENT AUTO 0 % (0-6); IMMATURE GRAN PERCENT AUTO 1 % (0-1); NEUTROPHILS ABSOLUTE AUTO 9.27 K/mm3 (1.96-9.15); NEUTROPHILS PERCENT AUTO 86 % (41-73)
[2021-07-14 07:03] LABS: Albumin, Blood 1.8 g/dL (3.4-5.0); Anion Gap 11 mmol/L (6-16); Blood Urea Nitrogen 45 mg/dL (8-24); Bun/Creatinine Ratio 27.1 (12.0-20.0); CO2, Blood 19 mmol/L (21-32); Calcium, Blood 7.8 mg/dL (8.5-10.1); Chloride, Blood 117 mmol/L (98-108); Creatinine, Blood 1.66 mg/dL (0.40-1.00); Glomerular Filtration Rate 31 (60-); Glucose, Blood 104 mg/dL (70-99); Phosphorus, Blood 5.5 mg/dL (2.5-4.9); Potassium, Blood 3.1 mmol/L (3.5-5.5); Sodium, Blood 147 mmol/L (136-145)
[2021-07-15 03:47] LABS: Hematocrit 20.6 % (33.0-51.0); Hemoglobin 6.7 g/dL (11.5-16.0); Mean Corpuscular HGB 29.6 pg (26.0-34.0); Mean Corpuscular HGB Conc 32.5 g/dL (31.5-36.5); Mean Corpuscular Volume 91 fL (80-100); Mean Platelet Volume 12.1 fL (9.1-12.4); NRBC ABSOLUTE 0.02 K/mm3 (0.00-0.02); NRBC Auto 0.3 /100 WBC (0.0-0.2); RDW Coefficient Variation 16.6 % (11.7-14.2); Red Blood Cell Count 2.26 M/mm3 (3.80-5.20); White Blood Cell Count 7.96 K/mm3 (4.00-11.30)
[2021-07-15 03:56] LABS: Platelet Count 41 K/mm3 (150-400)
[2021-07-15 04:10] LABS: Alanine Aminotransfer (ALT/SGP 35 U/L (12-78); Albumin, Blood 1.5 g/dL (3.4-5.0); Albumin/Globulin Ratio 0.5 (0.8-1.8); Alk Phos 65 U/L (50-136); Anion Gap 10 mmol/L (6-16); Aspartate Aminotrans (AST/SGOT 27 U/L (12-37); Bilirubin, Total 1.7 mg/dL (0.1-1.0); Blood Urea Nitrogen 43 mg/dL (8-24); Bun/Creatinine Ratio 29.1 (12.0-20.0); CO2, Blood 20 mmol/L (21-32); Calcium, Blood 7.6 mg/dL (8.5-10.1); Chloride, Blood 121 mmol/L (98-108); Creatinine, Blood 1.48 mg/dL (0.40-1.00); Globulin, Blood 3.3 g/dL (2.2-4.0); Glomerular Filtration Rate 36 (60-); Glucose, Blood 122 mg/dL (70-99); Magnesium, Blood 1.5 mg/dL (1.6-2.4); Potassium, Blood 2.8 mmol/L (3.5-5.5); Sodium, Blood 151 mmol/L (136-145); Total Protein, Blood 4.8 g/dL (6.4-8.2); Triglycerides 230 mg/dL (30-160)
--- NOTE | 2021-07-15 05:03 | NUR ---
DR. LEIGH NOTIFIED OF CRITICAL PLATELETES
[2021-07-15 06:02] LABS: BAND PERCENT MAN 19 % (0-8); BASOPHILS PERCENT MAN 0 % (0-2); EOSINOPHILS ABSOLUTE MAN 0.07 K/mm3 (0.00-0.68); EOSINOPHILS PERCENT MAN 1 % (0-6); LYMPHOCYTES ABSOLUTE MAN 1.11 K/mm3 (0.84-5.20); LYMPHOCYTES PERCENT MAN 14 % (21-46); METAMYELOCYTE ABSOLUTE MAN 0.07 K/mm3 (0.00-0.00); METAMYELOCYTE PERCENT MAN 1 % (0-0); MONOCYTES PERCENT MAN 0 % (4-13); MYELOCYTE ABSOLUTE MAN 0.07 K/mm3 (0.00-0.00); MYELOCYTE PERCENT MAN 1 % (0-0); SEG NEUTROPHILS PERCENT MAN 64 % (41-73); TOTAL CELLS COUNTED 100
--- NOTE | 2021-07-15 06:20 | NUR ---
END OF SHIFT SUMMARY: - PATIENT REMAINS UNABLE TO FOLLOW COMMANDS, SHE DOES OPEN EYES AND HOLD GAZE FOR 2 SECONDS AT MOST, SHE DOES NOT TRACK FINGERS OR FOLLOW COMMANDS/SQUEEZE HANDS - REMAINS OFF OF PROPOFOL SINCE 07/14 APPROX 0530, ONLY ONE DOSE OF PRN DILAUDED GIVEN FOR PAIN
--- NOTE | 2021-07-15 08:34 | NUR ---
RESIDENT DR QUIROZ ROUNDED ON PATIENT, REPORTED K+, MAG, H&H, NA+, ORAL WHITE SPOTTED, LEFT FOOT PLANTAR WOUND, AND RESTRAINT ORDER, DR QUIROZ TO ENTER ORDERS, PATIENT RESPONSIVE TO VOICE AND STIMULUS, TRACKS STAFF IN ROOM, PATIENT DID NOT ANSWER YES OR NO TO QUESTIONS
[2021-07-15 08:50] LABS: Hemoglobin 7.4 g/dL (11.5-16.0)
--- NOTE | 2021-07-15 09:55 | NUR ---
EXTUBATED, PATIENT EXTUBATED, TOLERATED WITH EASE, N 4L O2 NOW AT 100%, NG TO LIS, REPOSITIONED, ORAL CARE AND SUCTION, TALISHA RT, DOLORES RN, AND DR CAMPUZANO AT BEDSIDE
[2021-07-15 13:04] LABS: Hematocrit 21.5 % (33.0-51.0); Mean Corpuscular HGB 29.7 pg (26.0-34.0); Mean Corpuscular HGB Conc 32.6 g/dL (31.5-36.5); Mean Corpuscular Volume 91 fL (80-100); RDW Coefficient Variation 16.7 % (11.7-14.2); Red Blood Cell Count 2.36 M/mm3 (3.80-5.20); White Blood Cell Count 9.35 K/mm3 (4.00-11.30)
[2021-07-15 13:35] LABS: Platelet Count 37 K/mm3 (150-400)
[2021-07-15 15:24] LABS: BAND PERCENT MAN 19 % (0-8); BASOPHILS PERCENT MAN 0 % (0-2); EOSINOPHILS ABSOLUTE MAN 0.09 K/mm3 (0.00-0.68); EOSINOPHILS PERCENT MAN 1 % (0-6); LYMPHOCYTES ABSOLUTE MAN 0.65 K/mm3 (0.84-5.20); LYMPHOCYTES PERCENT MAN 7 % (21-46); METAMYELOCYTE ABSOLUTE MAN 0.18 K/mm3 (0.00-0.00); METAMYELOCYTE PERCENT MAN 2 % (0-0); MONOCYTES ABSOLUTE MAN 0.28 K/mm3 (0.16-1.47); MONOCYTES PERCENT MAN 3 % (4-13); NEUTROPHILS ABSOLUTE MAN 8.13 K/mm3 (1.96-9.15); SEG NEUTROPHILS PERCENT MAN 68 % (41-73); TOTAL CELLS COUNTED 100
--- NOTE | 2021-07-15 15:53 | NUR ---
DR CAMPUZANO ROUNDED REPORTED PATIENT FAILED THE SWALLOW EVAL, NPO, WILL RE EVALUATE IN AM
[2021-07-15 17:07] LABS: Magnesium, Blood 2.1 mg/dL (1.6-2.4); Potassium, Blood 2.8 mmol/L (3.5-5.5)
--- NOTE | 2021-07-15 19:14 | NUR ---
EXTUBATED AT 0955 TODAY, TOLERATED WITH EASE, PATIENT ALERT, OREIENTED TO PERSON AND PLACE, LS DIM BASES, ABD DRSG NO CHANGE, MARC TO GRAVITY, MOANS OUT FOR PAIN MEDS, MEDICATED DIRECTED, RELAYED TO PM RN
--- NOTE | 2021-07-15 21:00 | NUR ---
IV THIAMINE HELD D/T DOUBLE DOSE (THIAMINE ADDED TO TPN)
--- NOTE | 2021-07-16 00:37 | NUR ---
PATIENT PULLED OUT OF RESTRAINT AND PULLED OUT NG
--- NOTE | 2021-07-16 03:36 | NUR ---
DR. LEE NOTIFIED: - THIAMINE IV ORDER PLACED, CPN/TPN ALSO CONTAINES THIAMINE: NEVAEH TO D/C THIAMINE IV ORDER - PER PHARMACY: FOLIC ACID IS ABLE TO BE ADDED TO CPN/TPN: PER DR. JESUS HERRING TO ADD - FLUIDS CHANGED FROM NS TO D5 BUT NS STILL IN ORDER LIST: D/C NS ORDER - PATIENT PULLED NG: NEVAEH TO KEEP NG OUT, DO NOT REINSERT, CONTINUE WITH SWALLOW STUDY IN A.M./SPEECH THERAPY - SBP CONSISTENTLY OVER 160: ORDER HYDRALAZINE PRN
[2021-07-16 04:55] LABS: Hematocrit 23.1 % (33.0-51.0); Hemoglobin 7.6 g/dL (11.5-16.0); Mean Corpuscular HGB 29.1 pg (26.0-34.0); Mean Corpuscular HGB Conc 32.9 g/dL (31.5-36.5); Mean Corpuscular Volume 89 fL (80-100); Mean Platelet Volume 12.7 fL (9.1-12.4); NRBC ABSOLUTE 0.02 K/mm3 (0.00-0.02); NRBC Auto 0.3 /100 WBC (0.0-0.2); RDW Coefficient Variation 16.9 % (11.7-14.2); RDW Standard Deviation 53.2 fL (35.1-46.3); Red Blood Cell Count 2.61 M/mm3 (3.80-5.20); White Blood Cell Count 7.36 K/mm3 (4.00-11.30)
[2021-07-16 05:10] LABS: Platelet Count 39 K/mm3 (150-400)
[2021-07-16 05:16] LABS: Magnesium, Blood 1.8 mg/dL (1.6-2.4)
[2021-07-16 05:33] LABS: BAND PERCENT MAN 29 % (0-8); BASOPHILS PERCENT MAN 0 % (0-2); EOSINOPHILS ABSOLUTE MAN 0.14 K/mm3 (0.00-0.68); EOSINOPHILS PERCENT MAN 2 % (0-6); LYMPHOCYTES ABSOLUTE MAN 0.66 K/mm3 (0.84-5.20); LYMPHOCYTES PERCENT MAN 9 % (21-46); METAMYELOCYTE ABSOLUTE MAN 0.07 K/mm3 (0.00-0.00); METAMYELOCYTE PERCENT MAN 1 % (0-0); MONOCYTES ABSOLUTE MAN 0.22 K/mm3 (0.16-1.47); MONOCYTES PERCENT MAN 3 % (4-13); MYELOCYTE ABSOLUTE MAN 0.07 K/mm3 (0.00-0.00); MYELOCYTE PERCENT MAN 1 % (0-0); NEUTROPHILS ABSOLUTE MAN 6.18 K/mm3 (1.96-9.15); SEG NEUTROPHILS PERCENT MAN 55 % (41-73); TOTAL CELLS COUNTED 100
[2021-07-16 05:34] LABS: Bun/Creatinine Ratio 36.5 (12.0-20.0); Calcium, Blood 7.7 mg/dL (8.5-10.1); Creatinine, Blood 1.04 mg/dL (0.40-1.00); Phosphorus, Blood 2.9 mg/dL (2.5-4.9); Potassium, Blood 2.4 mmol/L (3.5-5.5)
--- NOTE | 2021-07-16 06:12 | NUR ---
DR. LEE CALLED TO REPORT CRITICAL POTASSIUM - NO ANSWER
--- NOTE | 2021-07-16 06:23 | NUR ---
DR. LEE CALLED BACK - NOTIFIED OF CRITICAL POTASSIUM 2.4 - ORDER TO REPLACE WITH 60MEQ KCL IV X1
--- NOTE | 2021-07-16 07:16 | NUR ---
END OF SHIFT SUMMARY: - PATIENT ALERT AND ORIENTED X3 BUT FORGETFULL, MANIPULATIVE, HALLUCINATES (STATES SHE SEES HER FAMILY SITTING IN THE ROOM). YELLS AND MOANS FROM THE ROOM AND WHEN RN CHECKS ON HER TO ASK WHAT IS WRONG/WHAT SHE NEEDS PATIENT STARTS WHISPERING INSTEAD OF YELLING IF SHE CANNOT SPEAK, ASKS "WAS I YELLING?" "CAN I LEAVE?" "I WANT WATER." (FAILED SWALLOW STUDY AGAIN OVERNIGHT BY RN) AND WOULD SOMETIMES STATE SHE IS IN PAIN BUT WOULD NOT BE ABLE TO ANSWER THE PAIN SCALE QUESTIONS. FENTANYL PRN GIVEN MULTIPLE TIMES OVERNIGHT. - PATIENT PULLED NG TUBE OVERNIGHT - DR. LEE NOTIFIED - PATIENT ALSO HAS REGULAR BMS DESPITE NO TF AND NPO WITH RECENT BOWEL SURGERY. - RESTRAINTS REMAIN ON TO PROTECT CENTRAL LINE AND MARC - POTASSIUM CRITICAL THIS MORNING - ORDER FOR 60MEQ POTASSIUM CHLORIDE REPLACEMENT. PLATELES CRITICALLY LOW AGAIN THIS MORNING. (LOVENOX D/C YESTERDAY).
--- NOTE | 2021-07-16 08:56 | NUR ---
AM NOTE... ASSUMED CARE OF PT AT 0700, PT IS A&Ox3 ABLE TO STATE HER NAME, KASSIDY, THAT SHE IS IN "[place]" BUT IS CONFUSED AT OTHER TIMES, YELLING OUT "HELP ME." PT IS S/P HEMICOLECTOMY WITH A LARGE MIDLINE INCISION AND PICCO DRAIN IN PLACE. THE DRESSNG OF THE PICCO DRAIN HAS OLD DRY S/S DRAINAGE NOTED. THE PT'S ABD IS SOFT AND PAINFUL TO PALP. BT NOT HEARD DURING ASSESSMENT BUT PER REPORT THE PT IS HAVING SMALL LOOSE BMs. THE PT'S MARC IS PATENT AND DRAINING DARK YELLOW URINE TO GRAVITY. THE PT IS IN SR IN THE 80'S-90'S WITH A STABLE BP. THE PT HAS EDEMA TO HER BLE AND BUE. SHE IS ABLE TO MOVE ALL EXTREMITIES WEAKLY. THE PT IS ON RA WITH O2 SATS >90% L/S COARSE W/SCATTERED WHEEZES. RR PRIOR TO PAIN MEDICATION WAS IN THE 40'S, AFTER SHE WAS GIVEN PAIN MEDICATION PER EMAR THE RR WENT INTO THE HIGH 20'S LOW 30'S. THE PT'S TEMP WAS 100.4. DR. TATUM WAS CALLED BY THIS RN TO ASK IF HE WANTED THE NG TUBE REPLACED OR NOT, PER DR. TATUM HE IS OKAY WITH NOT HAVING THE NG TUBE REPLACED AT THIS TIME. DR. BRANDON AT THE BEDSIDE THIS AM, PER DR. BRANDON THE PT IS PCU STATUS. WILL CONTINUE TO MONITOR.
--- NOTE | 2021-07-16 11:45 | NUR ---
PT UPDATE.... PT UP TO THE RECLINER CHAIR VIA LIFT, THE PT TOLERATED THIS WELL. THE PT HAS BEEN MEDICATED Q1 HR PER EMAR FOR PAIN. PER DR. TATUM THE PT HAD A ST EVAL, PER ST THE PT CAN HAVE ICE CHIPS. THE PT HAS BEEN TOLERATING THE ICE CHIPS WELL SO FAR. THE PT'S VS HAVE BEEN STABLE. THE PT'S WAS CALLED AND UPDATED ON THE PT'S CONDITON AND THE PLAN OF CARE. WILL CONTINUE TO MONITOR.
--- NOTE | 2021-07-16 15:55 | NUR ---
PT UPDATE... THE PT WAS UP IN THE CHAIR FOR SEVERAL HOURS, PT/OT IN THE ROOM TO WORK WITH THE PT. THE PT WAS ABLE TO STAND WITH MAX ASSIT W/FWW. THE PT WAS ALSO ABLE TO STAND AND TURN/PIVOT FROM THE RECLINER TO THE BED, THE PT WAS ALSO ABLE TO HELP PULL HERSELF UP IN THE BED USING THE RAILS. THE PT HAD A SMEAR TO ALMOST SMALL LIQUID BROWN INCONT STOOL. THE PT HAD BEEN REQUESTING A LOT OF ICE CHIPS, THIS RN HAD GIVEN THE PT APROX 1/2 OF A CUP OF ICE CHIPS WHEN THE PT STATED SHE FELT NAUSEOUS. THE ICE CHIPS WERE HELD BY THIS RN. DR. BRANDON WAS ON THE UNIT AND HE WAS NOTIFIED, A NEW ORDER FOR ZOFRAN WAS OBTAINED, THIS WAS GIVEN AND THE PT DENIED ANY N/V. ICE CHIPS STILL ON HOLD PER RN AT THIS TIME. THE PT'S IS AT THE BEDSIDE FOR VISITING HOURS. WILL CONTINUE TO MONITOR.
--- NOTE | 2021-07-16 17:51 | NUR ---
SHIFT SUMMARY.... NO ACUTE NEGATIVE CHANGES SINCE PREVIOUS NOTES. THE PT HAS BEEN MEDICATED FOR PAIN PER EMAR Q1HR PER THE PT'S REQUEST. THE PT C/O OF ABD THAT FEELS LIKE "BAD CRAMPS." L/S CONTINUE TO BE COARSE WITH SCATTERED WHEEZES. PT HAS BEEN GETTING BREATHING SEVERAL TIMES THIS SHIFT. THE PT'S WAS HERE FOR VISITING HOURS. THE PT WORKED WITH PT/OT AND DID WELL. THE PT'S MARC IS PATENT AND DRAINED 1050MLS OF CLEAR DARK YELLOW URINE. THE PT HAS BEEN YELLING OUT "HELP ME" SINCE HER LEFT, WHEN STAFF ENTER THE ROOM THE PT STARTS TALKING IN A WEAK WHISPER THAT IS UNINTELLIGIBLE, WHEN ASKED WHAT THE PT NEEDS SHE IS UNABLE TO STATE HER NEEDS. CALL LIGHT IN REACH WILL CONTINUE TO MONITOR UNTIL REPORT IS GIVEN TO ONCOMING RN.
--- NOTE | 2021-07-17 02:08 | NUR ---
patient non-compliant with pulse ox - pulled off forehead pulse ox, changed to finger pulse ox with difficulty reading d/t patient picking/movement. Patient stable sats on RA, patient changed to intermittent pulse ox checks. Continue PCU status.
--- NOTE | 2021-07-17 04:30 | NUR ---
Central line dressing changed, caps changed
--- NOTE | 2021-07-17 05:39 | NUR ---
End of shift summary: - alert and oriented x4, but manipulative behavior persists - although improved from previous shift. - SR. Occasional HTN SBP > 160, but < 160 after fentanyl IVP. No fevers. Noncompliant with pulse ox monitor - checking intermittently. - Wheezing and tachypnia continue despite RT care. Need for steroids? Saturations stable in mid 90s on RA. - No BM overnight. TPN continues. Absent bowel sounds continue. - Wang output adequate. Urine dark yellow/jamin. - No changes in skin condition. - Fentanyl IVP given almost every hour. Patient calms/stops moaning for about 10-15 minutes after IVP, and then starts moaning again. 25mcg not helpful. 50mcg dosages given. - morning labs not yet received.
[2021-07-17 05:44] LABS: Hematocrit 21.4 % (33.0-51.0); Hemoglobin 7.2 g/dL (11.5-16.0); Mean Corpuscular HGB Conc 33.6 g/dL (31.5-36.5); Mean Corpuscular Volume 89 fL (80-100); Mean Platelet Volume 12.4 fL (9.1-12.4); NRBC ABSOLUTE 0.03 K/mm3 (0.00-0.02); NRBC Auto 0.2 /100 WBC (0.0-0.2); RDW Coefficient Variation 17.5 % (11.7-14.2); RDW Standard Deviation 55.3 fL (35.1-46.3); White Blood Cell Count 15.93 K/mm3 (4.00-11.30)
[2021-07-17 06:13] LABS: Alanine Aminotransfer (ALT/SGP 35 U/L (12-78); Albumin, Blood 1.3 g/dL (3.4-5.0); Albumin/Globulin Ratio 0.3 (0.8-1.8); Alk Phos 77 U/L (50-136); Anion Gap 8 mmol/L (6-16); Aspartate Aminotrans (AST/SGOT 40 U/L (12-37); Bilirubin, Total 2.5 mg/dL (0.1-1.0); Blood Urea Nitrogen 30 mg/dL (8-24); Bun/Creatinine Ratio 32.8 (12.0-20.0); CO2, Blood 19 mmol/L (21-32); Chloride, Blood 119 mmol/L (98-108); Creatinine, Blood 0.92 mg/dL (0.40-1.00); Globulin, Blood 4.2 g/dL (2.2-4.0); Glomerular Filtration Rate >60 (60-); Glucose, Blood 145 mg/dL (70-99); Magnesium, Blood 1.8 mg/dL (1.6-2.4); Phosphorus, Blood 2.5 mg/dL (2.5-4.9); Potassium, Blood 3.1 mmol/L (3.5-5.5); Sodium, Blood 146 mmol/L (136-145); Total Protein, Blood 5.5 g/dL (6.4-8.2)
[2021-07-17 06:15] LABS: Platelet Count 49 K/mm3 (150-400)
[2021-07-17 06:18] LABS: BAND PERCENT MAN 19 % (0-8); BASOPHILS PERCENT MAN 0 % (0-2); EOSINOPHILS ABSOLUTE MAN 0.47 K/mm3 (0.00-0.68); EOSINOPHILS PERCENT MAN 3 % (0-6); LYMPHOCYTES ABSOLUTE MAN 0.95 K/mm3 (0.84-5.20); LYMPHOCYTES PERCENT MAN 6 % (21-46); MONOCYTES ABSOLUTE MAN 0.79 K/mm3 (0.16-1.47); MONOCYTES PERCENT MAN 5 % (4-13); NEUTROPHILS ABSOLUTE MAN 13.69 K/mm3 (1.96-9.15); SEG NEUTROPHILS PERCENT MAN 67 % (41-73); TOTAL CELLS COUNTED 100
--- NOTE | 2021-07-17 09:05 | NUR ---
AM NOTE... ASSUMED CARE OF PT AT 0700, PT IS A&Ox4 WITH SOME FORGETFULLNESS. PT IS ON RA WITH O2 SATS >90%, L/S HAVE INCREASED COARSE RHONCHI AND WHEEZES FROM YESTERDAY, THE PT'S WORK OF BREATHING HAS ALSO INCREASED, PT IS UNABLE TO CLOSE HER MOUTH TO SWALLOW AT THIS TIME, PT HAS BEEN MADE NPO PER THIS RN D/T ASPIRATION RISK. THE PT'S RR IS IN THE HIGH 30'S-40'S. THE PT IS IN SR IN THE 90'S, BP IS STABLE. PT HAS 2+ EDEMA NOTED TO HER BLE AND DEPENDENT EDEMA TO HER BUE. BT ARE ABSENT DURING THIS ASSESSMENT, ABD IS SOFT BUT TENDER TO PALP. PICCO DRAIN TO SUCTION. MARC IS PATENT AND DRAINING DARK YELLOW URINE TO GRAVITY. 0845: DR. STRONG AT THE BEDSIDE TO ASSESS THE PT. WILL CONTINUE TO MONITOR.
[2021-07-17 12:07] LABS: HEPARIN INDUCED PLATELET AB 0.132 OD (0.000-0.400)
--- NOTE | 2021-07-17 13:19 | NUR ---
PT UPDATE... AT APROX 1100 THIS RN AND LOG FEEDER WERE CHANGING THE RIGHT IJ DRESSING ON THIS PT, HER O2 SATS DROPPED DOWN TO 83% 6L NC WERE PLACED ON THE PT THIS BROUGHT HER O2 SATS UP TO 98%, THE PT WAS THEN PLACED ON THE BIPAP AT 14/10 AND 80% FIO2, THE PT TOLERATED THIS WELL, HER RR DECREASED FROM THE 40'S TO THE MID TO HIGH 20'S. THE PT'S O2 SATS WERE IN THE HIGH 90'S ON THE BIPAP. WILL CONTINUE TO MONITOR.
--- NOTE | 2021-07-17 18:12 | NUR ---
SHIFT SUMMARY... THE PT WAS GIVEN A BREAK FROM THE BIPAP AT APROX 1500 D/T THE PT'S ANXIOUS DEMANDS TO TAKE THE MASK OFF AND PERFORM ORAL CARE. ONCE THE MASK WAS OFF THE PT WAS PLACED ON 2L NC, SHE STARTED "GUPPY BREATHING" AND HER O2 SATS DROPPED DOWN TO 88%, THE BIPAP MASK WAS PUT BACK ON THE PT AND HER BREATHING AND O2 SATS IMRPOVED QUICKLY. PT'S L/S HAD IMPROVED FROM THE AM ASSESSMENT AND DID NOT SOUND SO COARSE AND WHEEZY. AT 1700 THE PT'S DAUGHTER WAS AT THE BEDSIDE FOR VISITING HOURS. THE PT WAS GIVEN ANOTHER BREAK FROM THE BIPAP AND WAS ABLE TO TOLERATE BEING OFF THE BIPAP ON 2L NC, HER RR INCREASED FROM THE HIGH 20'S TO THE HIGH 30'S BUT HER O2 SATS WERE STABLE >90%. THE PT'S OTHER VS HAVE BEEN STABLE T/O THE SHIFT. THE PT HAS BEEN GETTING IV PAIN MEDICATION Q1 HR PER PT'S REQUEST AND PER EMAR ORDERS. THE PT HAS BEEN C/O OF "CAMPING" ABD PAIN. THE PT'S ABD CONTINUES TO BE SOFT BUT PAINFUL TO PALP. BT CONTINUE TO BE ABSENT DURING ASSESSMENTS. MARC IS PATENT AND DRAINING CLEAR YELLOW URINE. THE PT HAS CONTINUED TO CALL OUT T/O THIS ENTIRE SHIFT, WHEN STAFF ENTER THE ROOM TO ASK WHAT SHE NEEDS THE PT RETURNS TO WHISPERING AND NONSENSICAL SPEECH. CALL LIGHT IN REACH WILL CONTINUE TO MONITOR UNTIL REPORT IS GIVEN TO ONCOMING RN.
--- NOTE | 2021-07-17 22:51 | NUR ---
PT IS ALERT WITH SOME CONFUSION NOTED. PT YELLING OUT FOR HELP WHEN AWAKE. VITALS ARE STABLE AND IS ON 2L NC WITH SATS RANGING LOW TO MID 90'S. PT REPORTS BEING PAINFUL AND HAS BEEN TREATED PER ORDER. PT WAS ATTEMPTING AND DEMANDING TO GET HER UP SO THAT SHE COULD USE THE TOILET FOR A BM. WITH 2 ASSIST THIS NURSE ATTEMPTED TO GET HER UP TO BSC BUT SHE WAS TOO WEAK AND WAS PUT ON BED ANDINO WITH SMALL PROGRESS. CALL LIGHT IS WITHIN REACH. WILL CONTINUE TO MONITOR.
--- NOTE | 2021-07-18 01:00 | NUR ---
CALLED DR LEE AND EXPLAINED THAT PT HAS BEEN VERY RESTLESS, PAINFUL, AND YELLING; AND EMAR ORDER. NO FURTHER ORDERS WERE GIVEN
--- NOTE | 2021-07-18 03:21 | NUR ---
PT ALERT AND YELLING OUT AND RESTLESS IN BED AT THIS PONT SHE IS ON 4L NC WITH SATS IN LOW 90'S TO MID 90'S. PT IS VERY WHEEZY AND RECIEVING BREATHING TREATMENT BY RT. PT REPORTS FEELING PAIN OF 6/10. CALL LIGHT IS WITHIN REACH. WILL CONTINUE TO MONITOR.
[2021-07-18 04:21] LABS: Hematocrit 19.7 % (33.0-51.0); Hemoglobin 6.3 g/dL (11.5-16.0); Mean Corpuscular HGB 29.4 pg (26.0-34.0); Mean Corpuscular Volume 92 fL (80-100); Mean Platelet Volume 12.2 fL (9.1-12.4); NRBC ABSOLUTE 0.05 K/mm3 (0.00-0.02); NRBC Auto 0.4 /100 WBC (0.0-0.2); RDW Coefficient Variation 18.2 % (11.7-14.2); RDW Standard Deviation 58.9 fL (35.1-46.3); Red Blood Cell Count 2.14 M/mm3 (3.80-5.20)
[2021-07-18 04:40] LABS: Bun/Creatinine Ratio 27.8 (12.0-20.0); Calcium, Blood 7.5 mg/dL (8.5-10.1); Creatinine, Blood 0.97 mg/dL (0.40-1.00); Magnesium, Blood 1.3 mg/dL (1.6-2.4); Potassium, Blood 2.6 mmol/L (3.5-5.5)
[2021-07-18 04:43] LABS: Platelet Count 47 K/mm3 (150-400)
[2021-07-18 05:54] LABS: BAND PERCENT MAN 13 % (0-8); BASOPHILS ABSOLUTE MAN 0.13 K/mm3 (0.00-0.23); BASOPHILS PERCENT MAN 1 % (0-2); EOSINOPHILS PERCENT MAN 3 % (0-6); LYMPHOCYTES ABSOLUTE MAN 0.26 K/mm3 (0.84-5.20); LYMPHOCYTES PERCENT MAN 2 % (21-46); METAMYELOCYTE ABSOLUTE MAN 0.26 K/mm3 (0.00-0.00); METAMYELOCYTE PERCENT MAN 2 % (0-0); MONOCYTES PERCENT MAN 3 % (4-13); MYELOCYTE ABSOLUTE MAN 0.26 K/mm3 (0.00-0.00); MYELOCYTE PERCENT MAN 2 % (0-0); NEUTROPHILS ABSOLUTE MAN 11.65 K/mm3 (1.96-9.15); SEG NEUTROPHILS PERCENT MAN 74 % (41-73); TOTAL CELLS COUNTED 100
[2021-07-18 06:24] LABS: Phosphorus, Blood 3.9 mg/dL (2.5-4.9)
--- NOTE | 2021-07-18 07:00 | NUR ---
ASSUME CARE: I have assumed care of pt at this time.
--- NOTE | 2021-07-18 07:27 | NUR ---
SHIFT SUMMARY PT IS ALERT BUT CONFUSED AT TIMES. PT'S HAS WAS DESATING DURING THE NIGHT AND WAS PUT ON 4L NC. PT HAS BEEN YELLING MOST OF THE NIGHT FOR HELP DUE TO PAIN IN ABDOMEN. DENIES CHEST PAIN OR PRESSURE. SHE HAS BEEN MEDICATED PER ORDER AND HAS HAD LITTLE SLEEP. THIS NURSE CALLED DR LEE REGARDIG PT BEING RESTLESS AND WANTING SOMETHING FOR SLEEP BUT THERE WERE NO FURTHER ORDERS. PT ATTEMPTED TO GET OUT OF BED TO USE THE BATHROOM BUT WAS TOO WEAK EVEN WITH TWO ASSIST. FORLY IS IN PLACE AND DRAINING TO GRAVITY. CENTRAL LINE WAS DC'D DUE TO NEW PICC LINE ACCESS. CALL LIGHT IS WITHIN REACH.
--- NOTE | 2021-07-18 11:17 | NUR ---
UPDATE: This RN spoke with pt's to update him on her status. Pt's granddaughter will be coming to visit this afternoon.
--- NOTE | 2021-07-18 11:52 | NUR ---
Echocardiogram completed.
[2021-07-18 13:27] LABS: Hematocrit 22.8 % (33.0-51.0); Hemoglobin 7.4 g/dL (11.5-16.0)
[2021-07-18 17:46] LABS: Hematocrit 26.1 % (33.0-51.0); Hemoglobin 8.4 g/dL (11.5-16.0)
--- NOTE | 2021-07-18 18:38 | NUR ---
END OF SHIFT SUMMARY: Pt received a unit of blood this morning; hemoglobin up from 6.3 to 8.4. She required several doses of prn fentanyl this AM and was repeatedly yelling out for help. Fentanyl patch ordered and placed on left deltoid; prn analgesic changed to dilaudid. Dilaudid given three times today. At the end of shift pt still A/O x 4, but is slower to respond and more sedated. Provider was notified and dilaudid frequency reduced; will continue with fentanyl patch. Pt up in chair for 6 hours today. She received ice chips this morning per hospitalist. Speech therapy was unable to assess pt due to opiate sedation. This afternoon pt developed course upper airway sound. RT performed NT suction with minimal secretions obtained. This RN instructed pt on deep breathing with incentive spirometry as well as splinting her abdomen with a pillow while coughing. Teaching still needs reinforcement.
--- NOTE | 2021-07-18 20:00 | NUR ---
UPON ENTERING ROOM NOTED AUDITORY WHEEZING, COARSE CRACKLES WITH ACCESSORY AGONAL BREATHING PATIENT SATURATIONS MAINTAINING > 92% RR 21-27 ON 2L NC, HR 84 SR WITH PVCS ALERT AND ORIENTATED UNABLE TO SPEAK MORE THAN A FEW WORDS AT A TIME WITH DIFFICULTY OF SOB, RECEIVED NEW ORDERS LASIX 40MG IVP HOLD FLUIDS FOR NOW.
[2021-07-19 04:21] LABS: Hematocrit 29.1 % (33.0-51.0); Hemoglobin 9.7 g/dL (11.5-16.0); Mean Corpuscular HGB 28.8 pg (26.0-34.0); Mean Corpuscular HGB Conc 33.3 g/dL (31.5-36.5); NRBC ABSOLUTE 0.05 K/mm3 (0.00-0.02); NRBC Auto 0.6 /100 WBC (0.0-0.2); Platelet Count 51 K/mm3 (150-400); RDW Coefficient Variation 18.4 % (11.7-14.2); Red Blood Cell Count 3.37 M/mm3 (3.80-5.20); White Blood Cell Count 9.07 K/mm3 (4.00-11.30)
[2021-07-19 04:43] LABS: Mean Corpuscular Volume 86 fL (80-100)
[2021-07-19 05:03] LABS: Magnesium, Blood 1.6 mg/dL (1.6-2.4)
[2021-07-19 05:16] LABS: Calcium, Blood 8.2 mg/dL (8.5-10.1); Creatinine, Blood 1.25 mg/dL (0.40-1.00); Phosphorus, Blood 6.3 mg/dL (2.5-4.9); Potassium, Blood 3.1 mmol/L (3.5-5.5)
[2021-07-19 05:29] LABS: BAND PERCENT MAN 21 % (0-8); BASOPHILS PERCENT MAN 0 % (0-2); EOSINOPHILS ABSOLUTE MAN 0.18 K/mm3 (0.00-0.68); EOSINOPHILS PERCENT MAN 2 % (0-6); LYMPHOCYTES ABSOLUTE MAN 0.63 K/mm3 (0.84-5.20); LYMPHOCYTES PERCENT MAN 7 % (21-46); METAMYELOCYTE ABSOLUTE MAN 0.18 K/mm3 (0.00-0.00); METAMYELOCYTE PERCENT MAN 2 % (0-0); MONOCYTES ABSOLUTE MAN 0.36 K/mm3 (0.16-1.47); MONOCYTES PERCENT MAN 4 % (4-13); MYELOCYTE ABSOLUTE MAN 0.18 K/mm3 (0.00-0.00); MYELOCYTE PERCENT MAN 2 % (0-0); NEUTROPHILS ABSOLUTE MAN 7.52 K/mm3 (1.96-9.15); SEG NEUTROPHILS PERCENT MAN 62 % (41-73); TOTAL CELLS COUNTED 100
--- NOTE | 2021-07-19 05:39 | NUR ---
RECEIVED LABS THIS AM, CALLED RECEIVED NEW ORDERS FOR KCL 20 CHRISTIANNE IVP X 1.
--- NOTE | 2021-07-19 06:12 | NUR ---
PATIENT ALERT AND ORIENTATED, ANXIOUS REFUSING TO KEEP BIPAP 23/06 ON THIS EVENING, CALLING OUT ALL NIGHT, NOTED BLACK ESCHAR AROUND LARYNX UPON ASSESSMENT, RESPIRATORY COARSE CRACKLES, AUDITORY WHEEZING WITH BIPAP REMOVAL, LASIX 40MG IVP GIVEN WITH ONLY 400ML OUTPUT IN MARC CATHETER, ABDOMEN DRESSING IS INTACT WITH NOTED DRY BLOOD MARQUEZ NEGATIVE PRESSURE IS AT 70MMHG AND LIGHT INDICATING WORKING,ABDOMEN IS DISTENDED, TENDER TO TOUCH, ERNESTO TRIPLE LUMEN PICC IS PATENT, CAPS CHANGED AND RUNNING TPN, Q2 HR TURNS PROVIDED, ORAL CARE, LINEN CHANGE, PATIENT REFUSED BATH THIS PM, MORNING LABS CBG 165 NO SLIDING SCALE NOTIFIED NO NEW ORDERS AT THIS TIME.
--- NOTE | 2021-07-19 07:00 | NUR ---
ASSUME CARE: I have assumed care of pt at this time. She is currently restrained on BIPAP and yelling out for help.
--- NOTE | 2021-07-19 09:45 | NUR ---
UPDATE: This RN spoke with pt's and updated him regarding pt's status. He is planning to come visit today. This RN also spoke with Dr. Butcher on behalf of speech therapy to clarify that pt may be advanced to a diet as tolerated. She does not need to remain NPO for surgical purposes.
--- NOTE | 2021-07-19 19:00 | NUR ---
ASSUMED CARE ASSUMED CARE OF PATIENT. PT IS SLEEPING WHEN UNDISTURBED. ROUSES EASILY TO STIMULI. ORIENTED EXCEPT TO DATE/TIME OF DAY. COOPERATIVE WITH CARE. MONITOR SHOWS NSR, RATE 80s. BP STABLE. REMAINS ON 2L NC. RESPIRATIONS UNLABORED, SHALLOW. MARC PATENT AND DRAINING TO GRAVITY. SEE SHIFT ASSESSMENT FOR FULL ASSESSMENT.
--- NOTE | 2021-07-19 19:06 | NUR ---
SHIFT SUMMARY: Pt removed from BIPAP and restraints this morning and agreed to get up in chair to help improve respiratory status. She was in chair for about six hours and was very participative with physical and speech therapies. Pain has been better managed, however this RN did ask the provider to change PRN dilaudid from q6 hours to q4 since pt was very painful after standing with PT. She has been coughing with instruction and suctioning her own sputum. at bedside this afternoon visiting with pt.
[2021-07-20 05:46] LABS: Hematocrit 22.9 % (33.0-51.0); Hemoglobin 7.7 g/dL (11.5-16.0); Mean Corpuscular HGB 29.4 pg (26.0-34.0); Mean Corpuscular HGB Conc 33.6 g/dL (31.5-36.5); Mean Corpuscular Volume 87 fL (80-100); NRBC ABSOLUTE 0.06 K/mm3 (0.00-0.02); NRBC Auto 0.5 /100 WBC (0.0-0.2); Platelet Count 88 K/mm3 (150-400); RDW Coefficient Variation 18.2 % (11.7-14.2); RDW Standard Deviation 56.6 fL (35.1-46.3); Red Blood Cell Count 2.62 M/mm3 (3.80-5.20); White Blood Cell Count 13.07 K/mm3 (4.00-11.30)
[2021-07-20 06:05] LABS: Mean Platelet Volume 13.8 fL (9.1-12.4)
--- NOTE | 2021-07-20 06:05 | NUR ---
SHIFT SUMMARY NO ACUTE CHANGES DURING NOC. SLEPT INTERMITTENTLY. CONTINUES TO BE ORIENTED TO SELF, PLACE AND EVENTS, BUT NOT TO DATE/TIME. PT KNOWS IT'S 2020. COOPERATIVE WITH CARE. CONTINUES WITH GENERAL WEAKNESS. ATTEMPTS TO ASSIST WITH REPOSITIONING. MEDICATED WITH DILAUDID 0.25MG IV X 2 DOSES WITH STATED RELIEF. ABD DRSG INTACT WITH OLD DRAINAGE NOTED. TOLERATING SMALL AMOUNTS OF ICE CHIPS. DENIES C/O NAUSEA. MARC PATENT AND DRAINING TO GRAVITY. REMAINS ON 2LNC. TACHYPNEIC AT TIMES WITH EXERTION. MOIST COUGH. PT ENCOURAGED TO USE IS AND TO COUGH/DEEP BREATHE FREQUENTLY. VSS. WILL REPORT TO ONCOMING RN WHEN AVAILABLE.
[2021-07-20 06:14] LABS: Albumin, Blood 0.9 g/dL (3.4-5.0); Albumin/Globulin Ratio 0.2 (0.8-1.8); Bilirubin, Total 2.4 mg/dL (0.1-1.0); Bun/Creatinine Ratio 33.9 (12.0-20.0); Calcium, Blood 8.5 mg/dL (8.5-10.1); Creatinine, Blood 1.65 mg/dL (0.40-1.00); Globulin, Blood 4.6 g/dL (2.2-4.0); Magnesium, Blood 1.9 mg/dL (1.6-2.4); Phosphorus, Blood 6.1 mg/dL (2.5-4.9); Potassium, Blood 3.3 mmol/L (3.5-5.5); Total Protein, Blood 5.5 g/dL (6.4-8.2)
--- NOTE | 2021-07-20 07:55 | NUR ---
ASSUMED PT CARE REPORT FROM OSMAN BURNETTE AT 0705, ASSUMED PT CARE. PT ALERT AND ORIENTED X3. KNOWS YEAR BUT NOT DATE. PT ANSWERS QUESTIONS APPROPRIATELY AND USES CALL LIGHT. LUNG SOUNDS COARSE/WHEEZY THROUGHOUT. PT HAS MOIST PRODUCTIVE COUGH, ABLE TO CLEAR AND SELF SUCTION. PT HR SINUS, SBP WNL. DENIES CP. SCATTERED BRUISES AND SORES. MARQUEZ DRESSING TO ABD SURGICAL SITE. DRAINAGE NOTED TO DRESSING. PT MOVES ALL EXTREMITIES. PLAN TO HAVE ST EVAL AGAIN TODAY. SEE FULL SHIFT ASSESSMENT.
--- NOTE | 2021-07-20 10:30 | NUR ---
DR CLEMENT TO ROOM FOR EVAL. PLAN TO SWITCH PT TO SURGICAL STATUS.
[2021-07-20 12:51] LABS: Hematocrit 25.7 % (33.0-51.0); Hemoglobin 8.9 g/dL (11.5-16.0)
--- NOTE | 2021-07-20 14:40 | NUR ---
ROOM ASSIGNMENT RECEIVED. 208.
--- NOTE | 2021-07-20 15:00 | NUR ---
DR TATUM TO ROOM FOR EVAL. PLAN TO CHANGE DRESSING TOMORROW.
--- NOTE | 2021-07-20 15:09 | NUR ---
REPORT TO FELIZ BURNETTE
--- NOTE | 2021-07-20 15:20 | NUR ---
PT LEAVING UNIT. ALL BELONGINGS AND CHART SENT WITH PT.
--- NOTE | 2021-07-20 15:46 | NUR ---
PATIENT ARRIVED FROM ICU13 TODAY 07/20/21 AT 1540. PATIENT IS ASLEEP BUT IS EASILY WOKEN UP WITH TOUCH AND SAYING HER NAME. SHE IS ALERT AND ORIENTED X3. SHE DOESN'T REMEMBER THE TIME OR YEAR WHEN ASKED. SHE IS ON 2L OXYGEN NC TO THE MOUTH SINCE SHE IS MAINLY A MOUTH BREATHER. PATIENT HAS A MARQUEZ DOWN THE MIDLINE OF HER ABD THAT IS INTACT BUT NEEDS TO BE CHANGED. DR. TATUM VERBALIZED THAT HE WILL CHANGE IT TOMORROW. POWERGLIDE TO THE ERNESTO AND IS INFUSING. CPN IS CURRENTLY RUNNING AND WILL START HER ABX. SHE IS A 2 PERSON MAX ASSIST WHEN REPOSITIONING PATIENT. MARC IS IN PLACE AND DRAINING PER GRAVITY. MEPLIEX IS APPLIED TO BOTH ELBOWS. SKIN IS VERY DRY AND FRAGILE. CALL LIGHT WITHIN REACH. BED ALARM ON FOR PRECAUTION.
--- NOTE | 2021-07-20 22:45 | NUR ---
2100 - PT IS ANXIOUS, WANTS TO TAKE OFF BIBAP MASK, AND IS RETLESS. DOCTOR STRONG MADE AWARE. ORDER TO GIVE HER IV ATIVAN PRN OBTAINED. MED GIVEN TO THE PT FOR ANXIETY EPISODE THEN POSITIVE EFFECT OBTAINED. 2199 - PT IS EXPERIENCING WET AND NON-PRODUCTIVE COUGH WITH DIMINISHED LUNG SOUNDS IN THE UPPER LUNG GARIBAY. DR STRONG MADE AWARE AND ORDERED PORTABLE CHEST RAY FOR OBSERVATION. 2239 - CXR RESULT OBTAINED, BROUGHT TO DR STRONG ATTENTION, NO NEW ORDER AT THIS TIME. MEANWHILE PT IS IN BED AND IS RESTING MORE QUIETLY SHE IS MONITORED WITH CONTINUOUS O2 SAT.
[2021-07-21 05:04] LABS: Hematocrit 21.5 % (33.0-51.0); Hemoglobin 7.2 g/dL (11.5-16.0); LYMPHOCYTES ABSOLUTE AUTO 0.95 K/mm3 (0.84-5.20); LYMPHOCYTES PERCENT AUTO 7 % (21-46); MONOCYTES ABSOLUTE AUTO 0.68 K/mm3 (0.16-1.47); MONOCYTES PERCENT AUTO 5 % (4-13); Mean Corpuscular HGB Conc 33.5 g/dL (31.5-36.5); NRBC Auto 0.8 /100 WBC (0.0-0.2); Platelet Count 82 K/mm3 (150-400); RDW Coefficient Variation 20.5 % (11.7-14.2); RDW Standard Deviation 69.8 fL (35.1-46.3); Red Blood Cell Count 2.25 M/mm3 (3.80-5.20); White Blood Cell Count 13.14 K/mm3 (4.00-11.30)
[2021-07-21 05:09] LABS: BASOPHILS ABSOLUTE AUTO 0.03 K/mm3 (0.00-0.23); BASOPHILS PERCENT AUTO 0 % (0-2); EOSINOPHILS PERCENT AUTO 2 % (0-6); IMMATURE GRAN ABSOLUTE AUTO 1.04 K/mm3 (0.00-0.10); IMMATURE GRAN PERCENT AUTO 8 % (0-1); Mean Corpuscular Volume 96 fL (80-100); Mean Platelet Volume 14.8 fL (9.1-12.4); NEUTROPHILS ABSOLUTE AUTO 10.14 K/mm3 (1.96-9.15); NEUTROPHILS PERCENT AUTO 77 % (41-73)
[2021-07-21 05:40] LABS: BAND PERCENT MAN 17 % (0-8); BASOPHILS PERCENT MAN 0 % (0-2); EOSINOPHILS ABSOLUTE MAN 0.39 K/mm3 (0.00-0.68); EOSINOPHILS PERCENT MAN 3 % (0-6); LYMPHOCYTES ABSOLUTE MAN 0.91 K/mm3 (0.84-5.20); LYMPHOCYTES PERCENT MAN 7 % (21-46); METAMYELOCYTE ABSOLUTE MAN 1.31 K/mm3 (0.00-0.00); METAMYELOCYTE PERCENT MAN 10 % (0-0); MONOCYTES ABSOLUTE MAN 0.91 K/mm3 (0.16-1.47); MONOCYTES PERCENT MAN 7 % (4-13); MYELOCYTE ABSOLUTE MAN 0.65 K/mm3 (0.00-0.00); MYELOCYTE PERCENT MAN 5 % (0-0); NEUTROPHILS ABSOLUTE MAN 8.54 K/mm3 (1.96-9.15); PROMYELOCYTE ABSOLUTE MAN 0.39 K/mm3 (0.00-0.00); PROMYELOCYTE PERCENT MAN 3 % (0-0); SEG NEUTROPHILS PERCENT MAN 48 % (41-73); TOTAL CELLS COUNTED 100
--- NOTE | 2021-07-21 07:02 | NUR ---
PT IN BED AND IS RESTING IN STABLE CONDITION. LAB CALLED WITH QUESTIONABLE CRITICAL POTASSIUM AND GLUCOSE LEVELS. LAB SAID TO OBTAIN NEW BLOOD SAMPLE FROM PICC TO RECHECK SAME TEST FIRST RESULTS WERE QUESTIONABLE. BLOOD SAMPLE COLLECTED AND SENT TO LAB. NEW RESULTS REMAIN PENDING OF THIS WRITING. PT ASSISTED WITH CARE AND ADLS, MEDICATED SCHEDULED AND PRN FOR PAIN AND FOR ANXIETY. REPOSITIONED TO ENHANCE COMFORT, KEPT CLEAN AND DRY. CALL PLACED NEAR HER AND ENCOURAGED TO CALL FOR HELP WHEN ASSISTANCE IS NEEDED SHE IS MONITORED.
[2021-07-21 09:12] LABS: Bun/Creatinine Ratio 32.7 (12.0-20.0); Calcium, Blood 8.3 mg/dL (8.5-10.1); Creatinine, Blood 1.68 mg/dL (0.40-1.00)
[2021-07-21 09:15] LABS: Potassium, Blood 3.3 mmol/L (3.5-5.5)
[2021-07-21 12:58] LABS: Hematocrit 20.9 % (33.0-51.0); Hemoglobin 7.2 g/dL (11.5-16.0)
[2021-07-21 13:19] LABS: Percent Saturation 13.1 % (15.0-50.0)
--- NOTE | 2021-07-21 16:56 | NUR ---
SHIFT SUMMARY PT A&OX1-2/AROUSES AND TRIES TO ANSWER QUESTIONS/DIFFICULT TO UNDERSTAND /WHISPERING, VSS/2LNC/WORE BIPAP MOST OF DAY PER PT REQ FOR COMFORT AND STRUGGLING TO CATCH BREATH ON NC; HAD TO REMIND PT TO BREATHE IN THROUGH NOSE SHE IS A MOUTH BREATHER; BIOX ON SATS >92%. POD9 MIDLINE MARQUEZ DRY/INTACT/WNL. MARC PATENT & DRAINING YELLOW URINE. TELE SINUS 83 BPM. NPO/ICE CHIPS/ORAL CARE. REPOSITION Q2. PICC LINE: CPN @ 75 MLS/HR. PAIN: FENT PATCH JAN. ANXIETY: IV 0.25 ML X1. WILL REPORT TO ONCOMING NOC RN.
[2021-07-22 04:52] LABS: Hematocrit 20.4 % (33.0-51.0); Hemoglobin 7.3 g/dL (11.5-16.0); Mean Corpuscular HGB 30.2 pg (26.0-34.0); Mean Corpuscular HGB Conc 35.8 g/dL (31.5-36.5); NRBC ABSOLUTE 0.11 K/mm3 (0.00-0.02); NRBC Auto 0.9 /100 WBC (0.0-0.2); Platelet Count 104 K/mm3 (150-400); RDW Coefficient Variation 18.7 % (11.7-14.2); RDW Standard Deviation 55.9 fL (35.1-46.3); Red Blood Cell Count 2.42 M/mm3 (3.80-5.20); White Blood Cell Count 11.96 K/mm3 (4.00-11.30)
[2021-07-22 04:53] LABS: Mean Corpuscular Volume 84 fL (80-100); Mean Platelet Volume 14.5 fL (9.1-12.4)
[2021-07-22 05:12] LABS: Anion Gap 11 mmol/L (6-16); Blood Urea Nitrogen 56 mg/dL (8-24); Bun/Creatinine Ratio 36.6 (12.0-20.0); CO2, Blood 24 mmol/L (21-32); Chloride, Blood 100 mmol/L (98-108); Creatinine, Blood 1.53 mg/dL (0.40-1.00); Glomerular Filtration Rate 34 (60-); Glucose, Blood 571 mg/dL (70-99); Potassium, Blood 5.1 mmol/L (3.5-5.5); Sodium, Blood 135 mmol/L (136-145); Triglycerides 616 mg/dL (30-160)
--- NOTE | 2021-07-22 06:23 | NUR ---
Pt is in bed and is resting in stable condition. She is assisted with care and ADLs, medicated as ordered. She is assisted with bathroom and toileting needs, assisted with turning and repositioning to enhance comfort. Pt is urged to call for help when assistance is needed as she is monitored.
[2021-07-22 08:15] LABS: Bun/Creatinine Ratio 35.6 (12.0-20.0); Calcium, Blood 8.9 mg/dL (8.5-10.1); Creatinine, Blood 1.6 mg/dL (0.40-1.00); Potassium, Blood 3.1 mmol/L (3.5-5.5)
[2021-07-22 09:32] LABS: Magnesium, Blood 1.7 mg/dL (1.6-2.4); Phosphorus, Blood 4.7 mg/dL (2.5-4.9)
[2021-07-22 14:35] LABS: Base Excess Venous -3.6 mmol/L; Bicarbonate Venous 21.6 mmol/L (24.0-30.0); PCO2 Venous 46.5 mmHg (38-42); PO2 Venous 115 mmHg (38-42)
--- NOTE | 2021-07-22 14:42 | NUR ---
SHIFT SUMMARY PT WAKES OCCASIONALLY, 2LNC/BIPAP T/O SHIFT, BIOX AT BEDSIDE WITH SATS >92%. CALOS ICE CHIPS, MARC PATENT & DRAINING YELLOW URINE, REPOSITIONED SIDE/SIDE. WILL REPORT TO ONCOMING YOLI RN.
[2021-07-23 05:18] LABS: Hematocrit 20.5 % (33.0-51.0); Mean Corpuscular HGB 28.8 pg (26.0-34.0); Mean Corpuscular HGB Conc 34.1 g/dL (31.5-36.5); Mean Corpuscular Volume 84 fL (80-100); Mean Platelet Volume 13.9 fL (9.1-12.4); NRBC ABSOLUTE 0.09 K/mm3 (0.00-0.02); NRBC Auto 0.7 /100 WBC (0.0-0.2); Platelet Count 108 K/mm3 (150-400); RDW Coefficient Variation 19.4 % (11.7-14.2); RDW Standard Deviation 58.2 fL (35.1-46.3); Red Blood Cell Count 2.43 M/mm3 (3.80-5.20)
--- NOTE | 2021-07-23 06:16 | NUR ---
PT IN BED AND IS RESTING IN STABLE CONDITION. ASSISTED WITH CARE AND ADLS, MEDICATED INDICATED. ASSISTED WITH BATHROOM AND TOILETING NEEDS, ASSISTED WITH TURNING AND REPOSITIONING TO ENHANCE COMFORT. HER CALL JASSO PLACED NEAR HER AND ENCOURAGED TO CALL FOR HELP WHEN ASSISTANCE IS NEEDED SHE IS MONITORED.
[2021-07-23 07:03] LABS: Bun/Creatinine Ratio 36.7 (12.0-20.0); Calcium, Blood 8.7 mg/dL (8.5-10.1); Creatinine, Blood 1.47 mg/dL (0.40-1.00); Magnesium, Blood 1.8 mg/dL (1.6-2.4); Phosphorus, Blood 4.4 mg/dL (2.5-4.9); Potassium, Blood 3.7 mmol/L (3.5-5.5)
--- NOTE | 2021-07-23 09:43 | NUR ---
PHYSICIAN NOTIFIED PT'S PUPILS UNEQUAL. R PUPIL PINPOINT, LEFT PUPIL 3-4. PHYSICIAN TO SEE PT AT THIS TIME.
--- NOTE | 2021-07-23 11:17 | NUR ---
PHYSICIAN UPDATED PT PULLING AT LINES THIS AM. PULLING OFF BIPAP AND OXYGEN. DESATING TO 70'S. ORDERS FOR SOFT WRIST RESTRAINTS AT 0900. IF PT IS IN NEED OF BIPAP/CPAP WITH RESTRAINTS, WILL INFORM PHYSICIAN FOR PT TRANSFER TO HIGHER LEVEL OF CARE.
--- NOTE | 2021-07-23 11:44 | NUR ---
PT'S UPDATED ON PT STATUS AT THIS TIME. PT'S EDUCATED ON REASON FOR RESTRAINTS.
--- NOTE | 2021-07-23 14:14 | NUR ---
PHYSICIAN NOTIFIED PT CONT TO HAVE HIGH RR. PHYSICIAN NOTIFIED. ORDERS TO BE PUT IN BY PHYSICIAN.
[2021-07-23 17:00] LABS: Base Excess Venous 3.1 mmol/L; Bicarbonate Venous 26.9 mmol/L (24.0-30.0); PO2 Venous 152 mmHg (38-42); pH Blood Venous 7.39 (7.34-7.37)
[2021-07-23 17:03] LABS: Hematocrit 21.3 % (33.0-51.0); Hemoglobin 7.5 g/dL (11.5-16.0)
--- NOTE | 2021-07-23 18:15 | NUR ---
SHIFT SUMMARY PT ALERT TO SELF AND LOCATION. PT CONFUSED AT TIMES. HARD TO UNDERSTAND PT D/T GARBLED SPEECH. PHYSICIAN INFORMED PT WAS FOUND TO HAVE 2 FENTANYL PATCHES ON THIS AM WHEN THIS RN WENT TO REPLACE PRIOR PATCH. DENT REMOVER AWARE. DISPOSED OF FENTANYL PATCHES WITH DENT REMOVER. PHYSICIAN NOTIFIED OF PT'S INCREASED WORK OF BREATHING. RT CALLED IN PT'S ROOM TO EVALUATE. THIS RN GAVE NARCAN ON OVERIDE PER MD ORDER TO ATTEMPT TO SEE IF PT WOULD HAVE IMPROVEMENT IN MENTATION. PT'S AT BEDSIDE T/O SHIFT. DURING END OF SHIFT PT HAD LARGE AMOUNTS OF PURULENT DRAINAGE FROM INCISION SITE ON ABD. DR. MAGANA NOTIFIED. ORDERS FOR HEAD CT AND ABD CT PLACED AND PT BROUGHT TO CT. DR. MAGANA AT BEDSIDE TO REMOVE SUTURES AND PACK WOUND. PLANS FOR PT TO MOVE TO ICU AT THIS TIME PER DR. MAGANA AND DR. MATHEW.
[2021-07-23 18:25] LABS: Hematocrit 19.4 % (33.0-51.0); Hemoglobin 6.7 g/dL (11.5-16.0); Mean Corpuscular HGB Conc 34.5 g/dL (31.5-36.5); Mean Corpuscular Volume 81 fL (80-100); NRBC ABSOLUTE 0.07 K/mm3 (0.00-0.02); NRBC Auto 0.4 /100 WBC (0.0-0.2); Platelet Count 120 K/mm3 (150-400); RDW Coefficient Variation 18.6 % (11.7-14.2); RDW Standard Deviation 52.7 fL (35.1-46.3); Red Blood Cell Count 2.39 M/mm3 (3.80-5.20); White Blood Cell Count 15.78 K/mm3 (4.00-11.30)
[2021-07-23 18:27] LABS: Mean Platelet Volume 13.4 fL (9.1-12.4)
[2021-07-23 18:38] LABS: Albumin, Blood 0.8 g/dL (3.4-5.0); Albumin/Globulin Ratio 0.2 (0.8-1.8); Bilirubin, Total 2.4 mg/dL (0.1-1.0); Bun/Creatinine Ratio 36.3 (12.0-20.0); Calcium, Blood 8.6 mg/dL (8.5-10.1); Creatinine, Blood 1.46 mg/dL (0.40-1.00); Globulin, Blood 4.5 g/dL (2.2-4.0); Potassium, Blood 3.6 mmol/L (3.5-5.5); Total Protein, Blood 5.3 g/dL (6.4-8.2)
[2021-07-23 18:46] LABS: BAND PERCENT MAN 20 % (0-8); BASOPHILS ABSOLUTE MAN 0.15 K/mm3 (0.00-0.23); BASOPHILS PERCENT MAN 1 % (0-2); EOSINOPHILS ABSOLUTE MAN 0.31 K/mm3 (0.00-0.68); EOSINOPHILS PERCENT MAN 2 % (0-6); LYMPHOCYTES ABSOLUTE MAN 0.94 K/mm3 (0.84-5.20); LYMPHOCYTES PERCENT MAN 6 % (21-46); METAMYELOCYTE ABSOLUTE MAN 0.47 K/mm3 (0.00-0.00); METAMYELOCYTE PERCENT MAN 3 % (0-0); MONOCYTES PERCENT MAN 7 % (4-13); MYELOCYTE ABSOLUTE MAN 0.78 K/mm3 (0.00-0.00); MYELOCYTE PERCENT MAN 5 % (0-0); NEUTROPHILS ABSOLUTE MAN 11.99 K/mm3 (1.96-9.15); SEG NEUTROPHILS PERCENT MAN 56 % (41-73); TOTAL CELLS COUNTED 100
--- NOTE | 2021-07-23 19:13 | NUR ---
REPORT GIVEN REPORT GIVEN TO [facility] OUTREACH WORKER. BED NOT YET READY FOR PT TRANSFER. WILL RELAY TO ONCOMING NIGHTSHIFT STAFF.
--- NOTE | 2021-07-23 19:55 | NUR ---
ATTEMPTED TO CALL PT'S SPOUSE NO ANSWER AT THIS TIME. WILL INFORM SALES ADMINISTRATION SPECIALIST.
--- NOTE | 2021-07-23 20:00 | NUR ---
ASSUMED CARE OF PT AT 1945. HAVE GONE TO ROOM 208 FOR BEDSIDE REPORT, AND THAN ASSUMED CARE OF PT UPON ARRIVAL TO ROOM ICU 3. PT NONSENSICAL WITH HER RESPONSES, AND IS DEMONSTRATING DYSPNEA. PLAN TO PLACE PT TO BIPAP AND FOLLOW UP ON NEW ORDERS. PT WILL MAKE EYE CONTACT. MOIST AUDIBLE RESPIRATIONS. NO S/S PAIN. WILL REVIEW CHART AND PLAN OF CARE FOR THIS PT.
[2021-07-24 04:47] LABS: BASOPHILS ABSOLUTE AUTO 0.02 K/mm3 (0.00-0.23); BASOPHILS PERCENT AUTO 0 % (0-2); EOSINOPHILS ABSOLUTE AUTO 0.17 K/mm3 (0.00-0.68); EOSINOPHILS PERCENT AUTO 1 % (0-6); Hematocrit 20.1 % (33.0-51.0); IMMATURE GRAN PERCENT AUTO 15 % (0-1); LYMPHOCYTES ABSOLUTE AUTO 1.03 K/mm3 (0.84-5.20); LYMPHOCYTES PERCENT AUTO 5 % (21-46); MONOCYTES ABSOLUTE AUTO 1.07 K/mm3 (0.16-1.47); MONOCYTES PERCENT AUTO 5 % (4-13); Mean Corpuscular HGB 28.2 pg (26.0-34.0); Mean Corpuscular HGB Conc 34.8 g/dL (31.5-36.5); Mean Corpuscular Volume 81 fL (80-100); Mean Platelet Volume 12.4 fL (9.1-12.4); NEUTROPHILS ABSOLUTE AUTO 15.42 K/mm3 (1.96-9.15); NEUTROPHILS PERCENT AUTO 74 % (41-73); NRBC ABSOLUTE 0.12 K/mm3 (0.00-0.02); NRBC Auto 0.6 /100 WBC (0.0-0.2); Platelet Count 133 K/mm3 (150-400); RDW Coefficient Variation 19.3 % (11.7-14.2); RDW Standard Deviation 53.3 fL (35.1-46.3); Red Blood Cell Count 2.48 M/mm3 (3.80-5.20); White Blood Cell Count 20.71 K/mm3 (4.00-11.30)
[2021-07-24 05:02] LABS: Source, Urine Catheter
[2021-07-24 05:05] LABS: Bun/Creatinine Ratio 34.4 (12.0-20.0); Creatinine, Blood 1.6 mg/dL (0.40-1.00); Magnesium, Blood 1.8 mg/dL (1.6-2.4); Phosphorus, Blood 5.3 mg/dL (2.5-4.9); Potassium, Blood 3.5 mmol/L (3.5-5.5)
[2021-07-24 05:06] LABS: Appearance, Urine Clear (Clear); Bilirubin, Urine Neg (Neg); Blood, Urine 5+ (Neg); Color, Urine Yellow (P-Yellow); Glucose Qualitative, Urine Neg (Neg); Ketones, Urine Neg (Neg); Leukocyte Esterase, Urine 1+ (Neg); Nitrite, Urine Neg (Neg); Protein, Urine 2+ (Neg); Urobilinogen, Urine NORM (Normal)
[2021-07-24 05:09] LABS: BAND PERCENT MAN 18 % (0-8); BASOPHILS PERCENT MAN 0 % (0-2); EOSINOPHILS PERCENT MAN 0 % (0-6); LYMPHOCYTES ABSOLUTE MAN 1.03 K/mm3 (0.84-5.20); LYMPHOCYTES PERCENT MAN 5 % (21-46); METAMYELOCYTE ABSOLUTE MAN 1.65 K/mm3 (0.00-0.00); METAMYELOCYTE PERCENT MAN 8 % (0-0); MONOCYTES ABSOLUTE MAN 1.65 K/mm3 (0.16-1.47); MONOCYTES PERCENT MAN 8 % (4-13); MYELOCYTE ABSOLUTE MAN 0.82 K/mm3 (0.00-0.00); MYELOCYTE PERCENT MAN 4 % (0-0); NEUTROPHILS ABSOLUTE MAN 15.11 K/mm3 (1.96-9.15); PROMYELOCYTE ABSOLUTE MAN 0.41 K/mm3 (0.00-0.00); PROMYELOCYTE PERCENT MAN 2 % (0-0); SEG NEUTROPHILS PERCENT MAN 55 % (41-73); TOTAL CELLS COUNTED 100
[2021-07-24 05:16] LABS: Bacteria Mod /hpf; Red Blood Cells, Urine 25-50 /hpf (0-2); Squamous Epithelial Cells Few /hpf (Few)
--- NOTE | 2021-07-24 06:00 | NUR ---
HAVE NEEDED TO CHANGE ABDOMINAL DRESSING APPROX Q 3 -4 HOURS. SATURATES WITH SEROUS/PURULENT DRAINAGE. FOUL SMELL. OBSERVED PLAN IS FOR DR MAGANA TO DRAIN AND CULTURE DRAINAGE. PT HAS BEEN ABLE TO ANSWER SIMPLE QUESTIONS WHEN ASKED. WHEN SOFT RESTRAINTS ARE REMOVED FOR REPOSITIONING, SHE IMMEDIATELY REACHES FOR BIPAP MASK TO REMOVE. PT HAS MAINTAINED > 90 PERCENT SATURATION WHILE ON BIPAP. DID USE CALCIUM ALGINATE IN WOUND BED TO ADD FOR EXCESS DRAINAGE. ABD PADS AND FLUFF USED EXCESS DRAINAGE. PT TOLERATES THIS WELL. WILL CONTINUE TO MONITOR PT, AND WILL REPORT OFF TO ONCOMING RN.
--- NOTE | 2021-07-24 08:21 | NUR ---
Report recieved from manager reimbursement HARRISON. SHE IS IN RESTRAINTS TO KEEP BIPAP MASK ON. NEURO SHE HERNANDEZ X4. NODS HEAD YES TO HAVING PAIN. JACQUELINE. FOLLOWING SIMPLE COMMANDS. SR 90'S, BP 121/76. PPP. 1+ GEN EDEMA. LUNGS ARE COARSE THROUG OUT. ON BIPAP 14-10 RATE 12 30% FIO2, HER RR IS 50, SPO2 97%. NO BOWEL TONES. NO BM. SHE HAS A MARC CATHYELLOW CLEAR URINE. SKIN DRY THIN FRAGILE. MIDLINE INCISION ON ABD. SOME STAPLE REMOVED. LARGE AMOUNT OF BROWN/MAURICIO PUSS DRAINAGE FROM INCISION. DRESSING WAS CHANGED FIRST THING THIS MORNING. PATIENT TURNED TO RIGHT SIDE. PARTIAL BATH/HONEY CARE DONE.BOOSTED UP IN BED. RESTRAINTS REMOVED AND REAPPLIED.
[2021-07-24 11:14] LABS: Base Excess Venous 2.6 mmol/L; Bicarbonate Venous 26.5 mmol/L (24.0-30.0); PCO2 Venous 43.3 mmHg (38-42); PO2 Venous 72.4 mmHg (38-42); pH Blood Venous 7.41 (7.34-7.37)
--- NOTE | 2021-07-24 12:59 | NUR ---
DR MAGANA CAME IN THIS MORNING AND PLACED A WOUND VAC. BY NOON IT WAS RINGING THAT IT WAS SO CLOGGED. STAFF CALLED DR MAGANA TO NOTIFY OF THE ALARM ASKED IF SHE WOULD COME BACK TO CHANGE DRESSING OR IF SHE WANTED THEM TO DO IT. SHE SAID STAFF COULD DO IT. SO THE WHOLE DRESSING WAS CHANGED. 1 BLACK FOAM PIECE WAS REMOVED. AREA WAS CLEANED. A SMALL BLACK PIECE OF FOAM WAS CUT AND PLACED IN WOUND BED. THE DRESSING WAS REAPPLIED TO SKIN AND NEW TUBE DRESING FOR SUCTIONING WAS APPLIED. DRESSING IS NOW CDI AND COMPRESSED WITH SUCTION SET AT 125. PATIENT'S AFSHIN CALLED AND WAS GIVEN A UPDATE ON HER STATUS AND BEING BACK IN ICU.
[2021-07-24 13:33] LABS: International Normalized Ratio 1.3; Prothrombin Time Results 13.4 Sec (9.7-11.5)
--- NOTE | 2021-07-24 17:49 | NUR ---
NO REAL CHANGES TODAY. HAVE HAD TO REPLACE WOUND VAC DRESSING TWICE AFTER THE DOCTOR PLACED IT THIS MORNIG. A GOOD AMOUNT OF DRAINAGE HAS COME OUT. SHE HAS REQUIRED FULL LINEN CHANGES WHEN HER WOUND VAC HAS LEAKED. SHE HAS BEEN TURNED Q2 HR FOR SKIN PROTECTION. SHE REMAINS RESTRAINED TO KEEP BIPAP MASK ON. ATTEMPTED HER ON 2 LITERS THIS AFTERNOON AND SHE LASTED ABOUT 30-40 MIN BEFORE SHE STARTED TO DESTAT TO 85-88%. SHE WAS PLACED BACK ON BIPAP. SHE HAS A FRIEND THAT CAME IN TO VISIT FROM [phone].
[2021-07-24 18:43] LABS: Hemoglobin 6.3 g/dL (11.5-16.0)
--- NOTE | 2021-07-24 19:20 | NUR ---
DR HAILE NOTIFIED OF PT RECENT H&H OF 6.3. ORDERS GIVEN
--- NOTE | 2021-07-24 22:26 | NUR ---
WOUND VAC ALARM STATING SUCTION NOT WORKING. REQUIRED CHANGED TWICE ON PRIOR SHIFT. WOUND VAC DRESSING CHANGED, THERAPY RESUMED WITH NO ALARMS AT THIS TIME. WILL CONTINUE TO MONITOR.
[2021-07-25 00:18] LABS: Hemoglobin 7.3 g/dL (11.5-16.0)
[2021-07-25 03:52] LABS: Hematocrit 20.6 % (33.0-51.0); Hemoglobin 7.3 g/dL (11.5-16.0); Mean Corpuscular HGB 28.7 pg (26.0-34.0); Mean Corpuscular HGB Conc 35.4 g/dL (31.5-36.5); Mean Corpuscular Volume 81 fL (80-100); Mean Platelet Volume 12.8 fL (9.1-12.4); NRBC ABSOLUTE 0.39 K/mm3 (0.00-0.02); NRBC Auto 1.2 /100 WBC (0.0-0.2); Platelet Count 124 K/mm3 (150-400); RDW Coefficient Variation 18.3 % (11.7-14.2); RDW Standard Deviation 51.5 fL (35.1-46.3); Red Blood Cell Count 2.54 M/mm3 (3.80-5.20); White Blood Cell Count 33.02 K/mm3 (4.00-11.30)
[2021-07-25 03:53] LABS: BASOPHILS ABSOLUTE AUTO 0.04 K/mm3 (0.00-0.23); BASOPHILS PERCENT AUTO 0 % (0-2); EOSINOPHILS ABSOLUTE AUTO 0.31 K/mm3 (0.00-0.68); EOSINOPHILS PERCENT AUTO 1 % (0-6); IMMATURE GRAN ABSOLUTE AUTO 4.67 K/mm3 (0.00-0.10); IMMATURE GRAN PERCENT AUTO 14 % (0-1); LYMPHOCYTES ABSOLUTE AUTO 1.22 K/mm3 (0.84-5.20); LYMPHOCYTES PERCENT AUTO 4 % (21-46); MONOCYTES PERCENT AUTO 5 % (4-13); NEUTROPHILS ABSOLUTE AUTO 25.28 K/mm3 (1.96-9.15); NEUTROPHILS PERCENT AUTO 77 % (41-73)
[2021-07-25 04:12] LABS: Alanine Aminotransfer (ALT/SGP 33 U/L (12-78); Albumin, Blood 0.7 g/dL (3.4-5.0); Albumin/Globulin Ratio 0.1 (0.8-1.8); Alk Phos 139 U/L (50-136); Anion Gap 10 mmol/L (6-16); Aspartate Aminotrans (AST/SGOT 77 U/L (12-37); Bilirubin, Total 2.2 mg/dL (0.1-1.0); Blood Urea Nitrogen 52 mg/dL (8-24); Bun/Creatinine Ratio 33.3 (12.0-20.0); CO2, Blood 27 mmol/L (21-32); Calcium, Blood 8.9 mg/dL (8.5-10.1); Chloride, Blood 108 mmol/L (98-108); Creatinine, Blood 1.56 mg/dL (0.40-1.00); Globulin, Blood 4.7 g/dL (2.2-4.0); Glomerular Filtration Rate 34 (60-); Glucose, Blood 126 mg/dL (70-99); Magnesium, Blood 1.9 mg/dL (1.6-2.4); Phosphorus, Blood 4.5 mg/dL (2.5-4.9); Potassium, Blood 3.7 mmol/L (3.5-5.5); Sodium, Blood 145 mmol/L (136-145); Total Protein, Blood 5.4 g/dL (6.4-8.2); Triglycerides 214 mg/dL (30-160)
[2021-07-25 06:07] LABS: BAND PERCENT MAN 30 % (0-8); BASOPHILS PERCENT MAN 0 % (0-2); EOSINOPHILS ABSOLUTE MAN 1.98 K/mm3 (0.00-0.68); EOSINOPHILS PERCENT MAN 6 % (0-6); LYMPHOCYTES ABSOLUTE MAN 2.31 K/mm3 (0.84-5.20); LYMPHOCYTES PERCENT MAN 7 % (21-46); METAMYELOCYTE ABSOLUTE MAN 2.64 K/mm3 (0.00-0.00); METAMYELOCYTE PERCENT MAN 8 % (0-0); MONOCYTES ABSOLUTE MAN 0.99 K/mm3 (0.16-1.47); MONOCYTES PERCENT MAN 3 % (4-13); MYELOCYTE ABSOLUTE MAN 1.32 K/mm3 (0.00-0.00); MYELOCYTE PERCENT MAN 4 % (0-0); NEUTROPHILS ABSOLUTE MAN 23.44 K/mm3 (1.96-9.15); PROMYELOCYTE ABSOLUTE MAN 0.33 K/mm3 (0.00-0.00); PROMYELOCYTE PERCENT MAN 1 % (0-0); SEG NEUTROPHILS PERCENT MAN 41 % (41-73); TOTAL CELLS COUNTED 100
--- NOTE | 2021-07-25 09:09 | NUR ---
REPORT RECIEVED FROM DOUGH CUTTER. NEURO PUPILS 5 REACTIVE, BRISK. ABLE TO FOLLOW SIMPLE COMMANDS, SQUEEZE FINGERS AND WIGGLE FEET/TOES. NODS YES TO EVERYTHING, FROM PAIN TO BEING HOT OR COLD. CARDIO SINUS RYTHM HR 80'S, BP 109/60 MAP 81. GENERALIZED DEPENDENT EDEMA 2+. PPP. LUNGS RIGHT SIDE DIM THROUGH OUT, LEFT SIDE DIM BUT WITH A BIT MORE AIR MOVEMENT WITH EXPIRATORY SQUEEK. BOWEL TONES -. NO BM IN LAST FEW DAYS. HAS F/C YELLOW URINE. DRY THIN FRAGILE SKIN WITH SCATTERED BRUISING. SHE HAS A MIDLINE INCISION WITH AMARIS IN PLACE WITH BOTTOM PORTION OPEN. THERE IS A WOUND VAC IN PLACE AT THIS TIME. DRESSING IS CDI. THERE IS PURULENT DRAINAGE THAT IS COMING OUT. PATIENT TURNED TO RIGHT SIDE AND BOOSTED UP IN BED. LIGHTS ON TO KEEP HER ON DAY NIGHT SCHEDULE FOR SLEEP.
--- NOTE | 2021-07-25 11:53 | NUR ---
CALLED DR CRABTREE ABOUT US GUIDED PARACENTESIS TO BE DONE TODAY. THE ORIGINAL ORDER WAS FOR CT GUIDED DRAIN TO BE PLACED, BUT THE RADIOLOGY PA BROWN SMART DECIDED ON A US GUIDED PARACENTESIS. DR CRABTREE SAID TO CALL DR MAGANA TO VERIFY THAT THEY ARE OK WITH THE PARACENTESIS VS DRAIN PLACEMENT. SHE WAS CALLED AND LEFT A MESSAGE ON HER VOICE MAIL. WAITING FOR RESPONSE.
--- NOTE | 2021-07-25 13:54 | NUR ---
DR MAGANA AWARE AND OK WITH PARACENTESIS BEING DONE INSTEAD OF DRAIN PLACEMENT.
--- NOTE | 2021-07-25 14:20 | NUR ---
US AND PA RADIOLOGIST CAME AND DID PARACENTESIS, VERY LITTLE FLUID REMOVAL, BUT WILL SEND OFF TO LAB TO BE TESTED. LIQUID IN ABD IS TOO THINK TO DRAIN OUT THIS WAY.
--- NOTE | 2021-07-25 15:43 | NUR ---
DR TRUJILLO NOTIFIED OF PATIENT + BLOOD CULTURE, GRAM - BACCILLUS. ON VANCO AND ZOSYN IV, SO PATIENT IS ALREADY COVERED.
--- NOTE | 2021-07-25 19:12 | NUR ---
OVERAL, UNEVENTFUL DAY. NO LEAKING FROM WOUND VAC UNTIL SURGEON CAME BY AND PRESSED ON ABD. THEN REQUIRED FULL BED BATH AND LINEN CHANGE. HER DAUGHTER WAS IN FOR THE FULL VISITING HOURS, SHE TRIMMED THE PATIENTS NAILS AND LOTIONED HER HANDS/FEET AND LEGS. SHE DID REQUIRE 1 UNIT KWIKI INSULIN PEN FOR CBG 158. PATIENT HAS BEEN ON 2 LITERS NC SINCE ABOUT 1500 TILL NOW AT 1924.
[2021-07-25 19:59] LABS: Vancomycin, Trough 1.5 ug/mL (5.0-10.0)
[2021-07-26 04:39] LABS: Hematocrit 21.3 % (33.0-51.0); Hemoglobin 7.2 g/dL (11.5-16.0); Mean Corpuscular HGB 28.2 pg (26.0-34.0); Mean Corpuscular HGB Conc 33.8 g/dL (31.5-36.5); Mean Corpuscular Volume 84 fL (80-100); NRBC ABSOLUTE 0.29 K/mm3 (0.00-0.02); NRBC Auto 1.2 /100 WBC (0.0-0.2); Platelet Count 107 K/mm3 (150-400); RDW Coefficient Variation 19.6 % (11.7-14.2); RDW Standard Deviation 56.7 fL (35.1-46.3); Red Blood Cell Count 2.55 M/mm3 (3.80-5.20); White Blood Cell Count 23.87 K/mm3 (4.00-11.30)
[2021-07-26 04:40] LABS: BASOPHILS ABSOLUTE AUTO 0.02 K/mm3 (0.00-0.23); BASOPHILS PERCENT AUTO 0 % (0-2); EOSINOPHILS ABSOLUTE AUTO 0.28 K/mm3 (0.00-0.68); EOSINOPHILS PERCENT AUTO 1 % (0-6); IMMATURE GRAN PERCENT AUTO 20 % (0-1); LYMPHOCYTES ABSOLUTE AUTO 1.17 K/mm3 (0.84-5.20); LYMPHOCYTES PERCENT AUTO 5 % (21-46); MONOCYTES ABSOLUTE AUTO 1.72 K/mm3 (0.16-1.47); MONOCYTES PERCENT AUTO 7 % (4-13); Mean Platelet Volume 13.9 fL (9.1-12.4); NEUTROPHILS ABSOLUTE AUTO 15.98 K/mm3 (1.96-9.15); NEUTROPHILS PERCENT AUTO 67 % (41-73)
[2021-07-26 04:56] LABS: BAND PERCENT MAN 15 % (0-8); BASOPHILS PERCENT MAN 0 % (0-2); BLASTS PERCENT MAN 1 % (0-0); EOSINOPHILS PERCENT MAN 0 % (0-6); LYMPHOCYTES ABSOLUTE MAN 1.43 K/mm3 (0.84-5.20); LYMPHOCYTES PERCENT MAN 6 % (21-46); METAMYELOCYTE ABSOLUTE MAN 1.19 K/mm3 (0.00-0.00); METAMYELOCYTE PERCENT MAN 5 % (0-0); MONOCYTES ABSOLUTE MAN 1.43 K/mm3 (0.16-1.47); MONOCYTES PERCENT MAN 6 % (4-13); MYELOCYTE ABSOLUTE MAN 0.95 K/mm3 (0.00-0.00); MYELOCYTE PERCENT MAN 4 % (0-0); PROMYELOCYTE ABSOLUTE MAN 0.71 K/mm3 (0.00-0.00); PROMYELOCYTE PERCENT MAN 3 % (0-0); SEG NEUTROPHILS PERCENT MAN 60 % (41-73); TOTAL CELLS COUNTED 100
[2021-07-26 06:03] LABS: Albumin, Blood 0.6 g/dL (3.4-5.0); Albumin/Globulin Ratio 0.1 (0.8-1.8); Bilirubin, Total 2.2 mg/dL (0.1-1.0); Bun/Creatinine Ratio 34.2 (12.0-20.0); Calcium, Blood 9.4 mg/dL (8.5-10.1); Creatinine, Blood 1.58 mg/dL (0.40-1.00); Globulin, Blood 5.2 g/dL (2.2-4.0); Magnesium, Blood 2.2 mg/dL (1.6-2.4); Total Protein, Blood 5.8 g/dL (6.4-8.2)
--- NOTE | 2021-07-26 11:23 | NUR ---
REPORTED TO DR CAMPUZANO, PATIENT RESTLESS, CONSTANT MOVEMENT, PATIENT ANSWERS YES WHEN ASK IF IN PAIN, GRIMACES WITH REPOSITIONING, LEVOPHED INCREASED TO 6 MCG MAP 60 AND ABOVE NOW, RESPIRATIONS 20-50, COARSE CRACKLE LUNGS, ALBUMIN 0.6, NO PAIN MEDS OR LASIX ORDERED AT THIS TIME, DR CAMPUZANO TO SEE PATIENT AT 1300
--- NOTE | 2021-07-26 12:43 | NUR ---
DR TRUJILLO ROUNDED, REPORTED LACTIC ACID, HGB, HCT, ALBUMIN, ANXIETY, PAIN, NYSTATIN, AND PALLIATIVE CARE. DR TRUJILLO ORDERED, NYSTATIN AND FENTANYL, PATIENT WILL NOT BE RECEPTIVE TO PALLIATIVE CARE INTERVENTIONS TO EVALUATE , ALBUMIN REPLACEMENT NOT ORDERED, PATIENT RECIEVING TPN, LEVOPHED INFUSING, WILL MEDICATE ORDERED
--- NOTE | 2021-07-26 14:05 | NUR ---
INTUBATION, 5 PROPOFOL PUSH 1607, INCREASED LEVOPHED TO 5MCG 1608, PROPOFOL 5 PUSH 1608, INTUBATED AT 1609 SIZE 8 24 @LIP, AC/VC 16/350/5/100%,1609 PROPOFOL GTT STARTED, 1611 FENTANYLT 50 PUSH, LEVOPHED INCREASED TO 15 MCG, 1612 NS BOLUS 1000ML, 1613 LEVOPHED INCREASED TO 13 MCG, 1616 PROPOFOL GTT@10, 1618 LEVOPHED AT 20MCG AND OG PLACED, 1620 PROPOFOL GTT@20 MCG, 1627 LEVOPHED AT 15 MCG, 1629 PROPOFOL AT 30 MCG, OG AND ET TUBE PLACEMENT CONFIRMED WITH CXRAY, 1638 LEVOPHED @12, NONTRAUMATIC INTUBATION, TO HAVE A I&D OF ABDOMEN TODAY, INTUBATED FOR SURGERY
[2021-07-26 16:49] LABS: PCO2 Arterial 62.5 mmHg (35-45); PO2 Arterial 336 mmHg (80-100); pH Blood Arterial 7.33 (7.35-7.45)
--- NOTE | 2021-07-26 16:54 | NUR ---
Met with pt and her Nathan at the bedside. Clarification: Nathan states he is the patient's current , and pt shakes her head in agreement. Nathan then tells me the pt's son that is coming to the hospital is also his son, as they have been for approx 32 years. The patient shakes her head in agreement to this as well. I asked pt if she was ever to someone other than Nathan, she shakes her head "No" to this. It is apparent to me the pt is able to answer "Yes" and "No" questions appropriately.
--- NOTE | 2021-07-26 17:38 | NUR ---
PATIENT TO OR NOW WITH RT AND OR RNX2
--- NOTE | 2021-07-26 18:01 | NUR ---
PATIETN SEDATED WITH PROPOFOL AND PRN FENTANYL, INTUBATED FOR I&D OF ABDOMEN TODAY, SOFT WRIST RESTRAINTS IN PLACE, LS COARSE NONPRODUCTIVE COUGH, PINK ORAL SUCTION FROM A CAST IN THE MOUTH, SIZE 8 22 AT THE LIP, VENT SETTINGS AC/VC 16/350/5/100%, EDEMA 3-4+ GENERALIZED, KATHLEEN HANDS AND FEET, SACRAL EDEMA AND KATHLEEN LEGS. WOUND VAC WORKING, MURRAY DRAINAGE, MARC TO GRAVITY, REPOSITIONED Q2H, AFSHIN UPDATE THROUGH OUT THE DAY, WILL RELAY TO PM VASILE
--- NOTE | 2021-07-26 19:20 | NUR ---
PATIENT ARRIVED BACK FROM OR WITH EVARISTO BAGGING ETT AND OR NURSE ON ICU BED POST ABD WASHOUT WITH MID ABD INCISION WITH WOUND VAC IN PLACE. MARIUSZ #1 TO RIGHT SIDE OF ABD AND MARIUSZ #2 TO LEFT SIDE OF ABD BOTH DRAINING SEROSANG FLUID. PROPOFOL 40 MCG FOR SEDATION, LEVOPHED 12 MCG AND VASOPRESSIN 0.04 MCG FOR HYPOTENSION. OG IN PLACE PLACED TO LIS, SMALL AMT OF BLOODY SECRETIONS. ETT PLACED TO VENT BY RT AC 20, TV 350, PEEP 5, FIO2 40% LUNG SOUNDS WITH COARSE WHEEZES UPPER AND COARSE LEFT BASE DECREASED RIGHT BASE. GENERALIZED EDEMA CONTINUES. BILAT WRIST RESTRAINTS CONTINUE DUE TO UNPREDICTABLE SEDATION AND BEHAVIOR RISKING ACCIDENTAL SELF EXTUBATION.
--- NOTE | 2021-07-26 20:18 | NUR ---
PATIENTS BACK TO SEE HER POST OP.
[2021-07-27 04:41] LABS: Magnesium, Blood 1.8 mg/dL (1.6-2.4)
[2021-07-27 04:53] LABS: pH Blood Arterial 7.44 (7.35-7.45)
[2021-07-27 05:00] LABS: Alanine Aminotransfer (ALT/SGP 38 U/L (12-78); Albumin, Blood 0.5 g/dL (3.4-5.0); Albumin/Globulin Ratio 0.1 (0.8-1.8); Alk Phos 189 U/L (50-136); Anion Gap 9 mmol/L (6-16); Aspartate Aminotrans (AST/SGOT 97 U/L (12-37); Bilirubin, Total 2.5 mg/dL (0.1-1.0); Blood Urea Nitrogen 47 mg/dL (8-24); Bun/Creatinine Ratio 31.3 (12.0-20.0); CO2, Blood 27 mmol/L (21-32); Calcium, Blood 8.1 mg/dL (8.5-10.1); Chloride, Blood 105 mmol/L (98-108); Globulin, Blood 4.7 g/dL (2.2-4.0); Glomerular Filtration Rate 35 (60-); Glucose, Blood 208 mg/dL (70-99); Phosphorus, Blood 3.5 mg/dL (2.5-4.9); Potassium, Blood 4.7 mmol/L (3.5-5.5); Sodium, Blood 141 mmol/L (136-145); Total Protein, Blood 5.2 g/dL (6.4-8.2); Triglycerides 838 mg/dL (30-160); Vancomycin, Random 33.1 ug/mL
--- NOTE | 2021-07-27 06:41 | NUR ---
SUMMARY PATIENT RESTING QUIETLY T/O MOST OF THE NIGHT. REMAINS INTUBATED AND SEDATED WITH PROPOFOL 45 MCG MEDICATED ONCE WITH FENTANYL FOR INCREASED RESP AND COUGHING. LEVOPHED AND VASOPRESSIN CONTINUE FOR HYPOTENSION. ABD SOFT WITH WOUND VAC IN PLACE HOLDING GOOD SUCTION WITH MIN DRAINAGE. BOTH MARIUSZ'S TO ABD DRAINING RED SEROSANG FLUID EMPTYING SEVERAL TIMES T/O NIGHT. OG REMAINS IN PLACE TO LIS IRRIGATED WITH 20 CC WATER X1 DUE TO LOW OUTPUT, NOW DRAINING BROWN BILE. ETT WITH VENT AC 20, TV 350, PEEP 5, FIO2 40% SUCTIONING SMALL AMT OF CLEAR SPUTUM. BLOODY ORAL SECRETIONS AND AT TIMES REMOVING SMALL BLOOD CLOTS FROM MOUTH.
[2021-07-27 07:06] LABS: Hematocrit 21.1 % (33.0-51.0); Hemoglobin 7.4 g/dL (11.5-16.0); Mean Corpuscular HGB 31.2 pg (26.0-34.0); Mean Corpuscular HGB Conc 35.1 g/dL (31.5-36.5); NRBC Auto 2.1 /100 WBC (0.0-0.2); Platelet Count 99 K/mm3 (150-400); RDW Coefficient Variation 20.2 % (11.7-14.2); RDW Standard Deviation 64.5 fL (35.1-46.3); Red Blood Cell Count 2.37 M/mm3 (3.80-5.20); White Blood Cell Count 32.59 K/mm3 (4.00-11.30)
[2021-07-27 07:09] LABS: Mean Corpuscular Volume 89 fL (80-100); Mean Platelet Volume 13.3 fL (9.1-12.4)
--- NOTE | 2021-07-27 08:30 | NUR ---
ASSUMED CARE REPORT FROM GUNNAR BURNETTE AT 0700. PT INTUBATED AND SEDATED. VENT SETTINGS AC/VC 20/350/5/40%. LUNGS DIM IN BASES, OCCASIONAL WHEEZES. SCANT SECRETIONS THROUGH ETT. BLOODY ORAL SECRETIONS. PROPOFOL GTT INFUSING. PT GRIMACES c ORAL CARE. DOES NOT FOLLOW COMMANDS. SR, RATE 70'S. LEVO AND VASO GTT FOR MAP>65. WOUND VAC MIDLINE. DRESSING C/D/I. MINIMAL DRAINAGE. MARIUSZ DRAINS BILATERALLY. SERISANGINOUS DRAINAGE, APPROX 10 ML/HR EACH. ABD SOFT, HYPOACTIVE BT. OGT TO LIS. SKIN IN POOR CONDITION. MULTIPLE ABNORMALITIES, SEE SHIFT ASSESSMENT. ANASCARCA. MARC PATENT, DRAINING TO GRAVITY. WILL CONTINUE TO MONITOR.
--- NOTE | 2021-07-27 16:27 | NUR ---
Pt is lying in bed, she is back on a ventilator after having another surgery to wash out her abdomen. Her has spent most of today at her bedside. Bedside RN reports pt having hypotension. I will remain available.
--- NOTE | 2021-07-27 17:23 | NUR ---
SHIFT SUMMARY NO ACUTE CHANGES THIS SHIFT. PT REMAINS INTUBATED AND SEDATED. VENT SETTINGS UNCHANGED, AC/VC 20/350/5/40%. LUNGS DIM. COUGH/GAG/SWALLOW REFLEX. PT RESPONSIVE TO PAINFUL STIMULI. LEVO AND VASO CONTINUE. 1L LR GIVEN, BP UNCHANGED. WOUND VAC MIDLINE ABD, SCANT SERISANGINOUS DRAINAGE, MARIUSZ DRAINS BILATERALLY, APPROX 100 ML OUT THIS SHIFT. PURLENT PINK DRAINAGE. ABD TENDER. HYPOACTIVE BT. TRICKLE FEEDS STARTED. MARC PATENT, DRAINED 250 ML OUT THIS SHIFT. WILL CONTINUE TO MONITOR UNTIL REPORT TO ONCOMING NURSE.
--- NOTE | 2021-07-27 19:45 | NUR ---
ASSUMED CARE AFTER REPORT RECV'D ASSESSMENT COMPLETE. WOUND VAC IN PLACE TO ABD SUGERICAL INCISION WITH SUCTION AT 120. MARIUSZ DRAINS X2. ETT TUBE SECURE AND IN PLACE. VS STABLE AT THIS TIME. GRIMACES WITH ORAL CARE OR MOVEMENT. DOES NOT FOLLOW REQUESTS.
--- NOTE | 2021-07-27 20:30 | NUR ---
MODERATE AMOUNT OF GREEN DRAINAGE OF MOUTH. MOUTH SUCTIONED, RESIDUAL CHECKED WITH 5 ML RETURN
--- NOTE | 2021-07-28 00:10 | NUR ---
VOMITED GREEN LIQUID, RESIDUAL CHECKED AFTER VOMITING WITH 100 ML GREEN RETURN. TUBE FEEDING PLACED ON HOLD. SUCTIONED ETT WITH NO RETURN OR SIGNS OF ASPIRATION
--- NOTE | 2021-07-28 02:00 | NUR ---
VOMITED LARGE AMOUNT OF GREEN FLUID. RESIDUAL CHECKED WITH 100 ML RETURN OF GREEN LIQUID. PLACED OG TUBE TO LOW INTER SUCTION TO PREVENT FURTHER VOMITING. ETT SUCTIONED WITH NO RETURN, NO SIGNS OF ASPIRATION NOTED.
[2021-07-28 04:46] LABS: Hematocrit 19.2 % (33.0-51.0); Hemoglobin 7.1 g/dL (11.5-16.0); Mean Corpuscular HGB 32.9 pg (26.0-34.0); Mean Corpuscular Volume 89 fL (80-100); NRBC ABSOLUTE 0.54 K/mm3 (0.00-0.02); NRBC Auto 1.7 /100 WBC (0.0-0.2); Platelet Count 87 K/mm3 (150-400); RDW Coefficient Variation 19.7 % (11.7-14.2); RDW Standard Deviation 64.2 fL (35.1-46.3); Red Blood Cell Count 2.16 M/mm3 (3.80-5.20); White Blood Cell Count 32.05 K/mm3 (4.00-11.30)
[2021-07-28 05:16] LABS: Magnesium, Blood 1.9 mg/dL (1.6-2.4)
[2021-07-28 05:33] LABS: BAND PERCENT MAN 18 % (0-8); BASOPHILS PERCENT MAN 0 % (0-2); EOSINOPHILS ABSOLUTE MAN 0.64 K/mm3 (0.00-0.68); EOSINOPHILS PERCENT MAN 2 % (0-6); LYMPHOCYTES ABSOLUTE MAN 2.88 K/mm3 (0.84-5.20); LYMPHOCYTES PERCENT MAN 9 % (21-46); METAMYELOCYTE ABSOLUTE MAN 1.28 K/mm3 (0.00-0.00); METAMYELOCYTE PERCENT MAN 4 % (0-0); MONOCYTES PERCENT MAN 5 % (4-13); MYELOCYTE PERCENT MAN 5 % (0-0); NEUTROPHILS ABSOLUTE MAN 24.03 K/mm3 (1.96-9.15); SEG NEUTROPHILS PERCENT MAN 57 % (41-73); TOTAL CELLS COUNTED 100
[2021-07-28 05:42] LABS: Bun/Creatinine Ratio 29.9 (12.0-20.0); Creatinine, Blood 1.54 mg/dL (0.40-1.00); Phosphorus, Blood 2.6 mg/dL (2.5-4.9)
--- NOTE | 2021-07-28 06:18 | NUR ---
RESTING QUIETLY AT THIS TIME. NO FURTHER EPISODES OF VOMITING SINCE OG TUBE CONNECTED TO LIS. LEVO WEINED THROUGH OUT SHIFT. INFUSING AT 7 MCG/MIN AT THIS TIME. WILL CONTINUE TO CYNTHIA TOLERATED. MARIUSZ DRAINS CONTINUE TO PUT OUT HIGH VOLUMES. CONTINUES ON 45 MCG OF DIPROVAN FOR SEDATION. WILL GRIMACE WITH MOUTH CARE AND MOVEMENT.
[2021-07-28 06:19] LABS: Calcium, Blood 8.1 mg/dL (8.5-10.1)
--- NOTE | 2021-07-28 07:45 | NUR ---
ASSUMED CARE BEDSIDE REPORT FROM PLACIDO BURNETTE AT 0700. PT INTUBATED AND SEDATED. VENT SETTINGS AC/VC 20/350/5/40%. LUNGS COARSE. SMALL, THICK WHITE SECRETIONS THROUGH ETT. COUGH/GAG/SWALLOW REFLEX. PROPOFOL GTT. PT RESPONSIVE TO PAINFUL STIMULI. NO MOVEMENT TO EXTREMTIES NOTED. SR, RATE 80'S. LEVO AND VASO GTT FOR MAP>65. ABD SLIGHTLY FIRM, HYPOACTIVE BT. WOUND VAC MIDLINE, SUCTION FUNCTIONING WELL. SCANT SERSANGIOUS DRAINAGE. MARIUSZ DRAINS BILATERALLY TO ABD, RIGHT PRODUCING MORE DRAINAGE AND MORE PURLENT. OGT TO LIS D/T VOMITING LAST NOC. ANASCARCA. MARC PATENT, DRAINING KEISHA URINE c SEDIMENT TO GRAVITY. SCD'S IN PLACE. PICC TO RUE. DRESSING INTACT, CLEAR DRAINAGE. WILL CONTINUE TO MONITOR.
--- NOTE | 2021-07-28 09:11 | NUR ---
DR BRANDON ROUNDS DR GALDAMEZ CONSULT COMPLETED, TO SEE PT THIS EVENING. CT ORDERED. WILL POSTPONE SEDATION VACATION THIS SHIFT D/T SEPSIS/DECREASED LUNG VOLUMES PRIOR TO INTUBATION.
--- NOTE | 2021-07-28 09:48 | NUR ---
DR BRANDON ROUNDS WILL POSTPONE SEDATION VACATION D/T SEPSIS/PRESSORS/LOW LUNG VOLUMES PRIOR TO INTUBATION.
--- NOTE | 2021-07-28 18:06 | NUR ---
SHIFT SUMMARY PT REMAINS INTUBATED AND SEDATED. NO ACUTE CHANGES THIS SHIFT. VENT SETTINGS AC/VC 20/350/5/40%. LUNGS COARSE, DIM IN BASES. SMALL AMOUNT OF SECRETIONS. LEVO AND VASO GTT FOR MAP>65, LEVO TITRATED DOWN, ATTEMPTED TO PLACE VASO ON STANDBY X 2 UNSUCCESSFULLY. LR AT 50 ML/HR. TPN 65 ML/HR. PROPOFOL GTT, NO SEDATION VACATION THIS SHIFT, SEE PREVIOUS NOTE. CONTINUES TO BE EDEMATOUS AND WEEPING OVER ENTIRE BODY. ABD UNCHANGED. GOOD SEAL ON WOUND VAC, 175 ML OUT MARIUSZ DRAINS X 2, MORE AND PURLENT FROM RIGHT. OGT TO LIS D/T N/V, 200 ML BILE OUT. MARC PATENT, DRAINED 550 KEISHA URINE c SEDIMENT TO GRAVITY. WILL CONTINUE TO MONITOR UNTIL REPORT TO ONCOMING NURSE.
--- NOTE | 2021-07-28 21:58 | NUR ---
SHIFT ASSESSMENT ASSUMED CARE OF PT @ 1900. BEDSIDE REPORT RECEIVED FROM VASILE CARRERO. PT INTUBATED AND SEDATED. ANASARCA. VENT SETTINGS-AC:20/350/40%/ PEEP-5 c O2 SATS >95%. PROPOFOL GTT @ 45MCG. PT HYPOTENSIVE, LEVOPHED AND VASOPRESSIN INFUSING FOR MAP GOAL >65, SEE FLOWSHEET FOR TITRATION. OGT TO LIS c DARK GREEN FLUID. ABDOMEN DISTENDED, BT'S HYPOACTIVE. MIDLINE WOUND VAC SUCTIONING WELL, SS FLUID OUT. BILATERAL MARIUSZ DRAINS. RIGHT MARIUSZ c PURULENT DRAINAGE, LEFT MARIUSZ c SS. MARC CATH PATENT, DRAINING YELLOW URINE. SCD'S IN PLACE. BL SOFT WRIST RESTRAINTS. WILL CONTINUE TO MONITOR CLOSELY.
[2021-07-29 03:51] LABS: Hematocrit 18.2 % (33.0-51.0); Hemoglobin 6.5 g/dL (11.5-16.0); Mean Corpuscular HGB 31.9 pg (26.0-34.0); Mean Corpuscular HGB Conc 35.7 g/dL (31.5-36.5); Mean Corpuscular Volume 89 fL (80-100); NRBC ABSOLUTE 0.15 K/mm3 (0.00-0.02); NRBC Auto 0.5 /100 WBC (0.0-0.2); Platelet Count 75 K/mm3 (150-400); RDW Coefficient Variation 19.9 % (11.7-14.2); RDW Standard Deviation 65.1 fL (35.1-46.3); Red Blood Cell Count 2.04 M/mm3 (3.80-5.20)
[2021-07-29 04:12] LABS: Mean Platelet Volume 13.2 fL (9.1-12.4)
[2021-07-29 04:26] LABS: Albumin, Blood 0.4 g/dL (3.4-5.0); Albumin/Globulin Ratio 0.1 (0.8-1.8); Bilirubin, Total 1.9 mg/dL (0.1-1.0); Bun/Creatinine Ratio 31.3 (12.0-20.0); Calcium, Blood 7.9 mg/dL (8.5-10.1); Creatinine, Blood 1.5 mg/dL (0.40-1.00); Globulin, Blood 4.8 g/dL (2.2-4.0); Magnesium, Blood 1.8 mg/dL (1.6-2.4); Phosphorus, Blood 3.1 mg/dL (2.5-4.9); Potassium, Blood 5.4 mmol/L (3.5-5.5); Total Protein, Blood 5.2 g/dL (6.4-8.2)
[2021-07-29 04:41] LABS: BAND PERCENT MAN 18 % (0-8); BASOPHILS PERCENT MAN 0 % (0-2); EOSINOPHILS PERCENT MAN 0 % (0-6); LYMPHOCYTES ABSOLUTE MAN 1.16 K/mm3 (0.84-5.20); LYMPHOCYTES PERCENT MAN 4 % (21-46); METAMYELOCYTE ABSOLUTE MAN 0.29 K/mm3 (0.00-0.00); METAMYELOCYTE PERCENT MAN 1 % (0-0); MONOCYTES ABSOLUTE MAN 1.45 K/mm3 (0.16-1.47); MONOCYTES PERCENT MAN 5 % (4-13); MYELOCYTE ABSOLUTE MAN 1.16 K/mm3 (0.00-0.00); MYELOCYTE PERCENT MAN 4 % (0-0); NEUTROPHILS ABSOLUTE MAN 25.02 K/mm3 (1.96-9.15); SEG NEUTROPHILS PERCENT MAN 68 % (41-73); TOTAL CELLS COUNTED 100
[2021-07-29 05:44] LABS: PCO2 Arterial 42.6 mmHg (35-45); PO2 Arterial 66.4 mmHg (80-100); pH Blood Arterial 7.46 (7.35-7.45)
--- NOTE | 2021-07-29 06:28 | NUR ---
SHIFT SUMMARY PT REMAINS INTUBATED AND SEDATED. VENT SETTINGS AC-20/350/35%/4 c O2 SATS >90%. PROPOFOL GTT CONTINUES @ 45MCG'S. LEVOPHED @ 5MCG/MIN & VASOPRESSIN @ 0.04UNITS/ MIN TO MAINTAIN A MAP >65. OGT TO LIS c ~100ML OUT. NO CHANGES TO ABDOMINAL WOUND, WOUND VAC c ~100ML OUT. RIGHT SIDED MARIUSZ DRAIN CONTINUES TO PRODUCE MORE PURULENT FLUID, LEFT MARIUSZ c SS. PT REMAINS EDEMATOUS, WEEPING TO LEGS AND ARMS. MARC CATH PATENT WITH KEISHA URINE. WILL CONTINUE TO MONITOR.
--- NOTE | 2021-07-29 07:15 | NUR ---
[facility] Pt is in bed, sedated and ventilated via ETT. Vent settings: AC/VC 20/350/5/35%. OG tube in place, connected to low/int suction. PICC in ERNESTO, WNL. IV pump settings: Levophed 5 mcg/min, Vasopressin 0.04 units/min, Propofol 45 mcg/kg/min, TPN 65 ml/hr, LR 50 ml/hr, NS 10 ml/hr. Pt has abdominal dressing/wound vac in place, dressing intact, wound vac set at 120mmhg. MARIUSZ drains in place, L & R abdomen, WNL. Wang catheter in place. SCD's in place. No acute needs noted, will continue to monitor.
[2021-07-29 14:24] LABS: Hematocrit 23.2 % (33.0-51.0); Hemoglobin 8.2 g/dL (11.5-16.0)
--- NOTE | 2021-07-29 18:18 | NUR ---
Shift summary. Pt continues in bed, sedated and on ventilator via ETT. Vent settings: AC/VC 20/350/5/35%. OG tube in place, to low intermittent suction. PICC line in place, dressing changed today. IV pump settings: Levophed 5 mcg/min, propofol 45 mcg/kg/min, TPN 65ml/hr, LR 50 ml/hr, vasopressin titrated off during shift. Pt has abdominal dressing over surgical site with wound vac attached, 120mmhg, dressing intact. MARIUSZ drains present R and L lower quadrants. Wang catheter in place, draining dark/jamin/red urine. 1 unit blood transfused at beginning of shift for low H&H. PT very edematous, lasix and albumin administered this afternoon per Dr. Mercado. Small amount of bile-colored liquid suctioned out of patient's mouth during oral care this afternoon. See shift assessment for further details. Will continue to monitor and report off to nightshift RN.
--- NOTE | 2021-07-29 22:35 | NUR ---
SHIFT ASSESSMENT ASSUMED CARE OF PT @ 1900. REPORT FROM VASILE MOCK. PT INTUBATED AND SEDATED. VENT [id number]-54/350/35%/5 c O2 SATS >95%. PROPOFOL @ 45MCG'S. LEVOPHED GTT @ 5MCG/MIN c MAP GOAL >65. PT c WEEPING EDEMA T/O, BLISTERS FORMING ON UPPER THIGHS. OGT TO LIS. ABD MIDLINE DRESSING c WOUND VAC IN PLACE. BL MARIUSZ DRAINS c SS FLUID. MARC CATH PATENT DRAINING KEISHA URINE. WILL CONTINUE TO MONITOR CLOSELY.
[2021-07-30 03:59] LABS: Hemoglobin 7.6 g/dL (11.5-16.0); LYMPHOCYTES ABSOLUTE AUTO 0.72 K/mm3 (0.84-5.20); LYMPHOCYTES PERCENT AUTO 2 % (21-46); MONOCYTES ABSOLUTE AUTO 1.47 K/mm3 (0.16-1.47); MONOCYTES PERCENT AUTO 5 % (4-13); Mean Corpuscular HGB Conc 34.5 g/dL (31.5-36.5); Mean Corpuscular Volume 90 fL (80-100); NRBC ABSOLUTE 0.04 K/mm3 (0.00-0.02); NRBC Auto 0.1 /100 WBC (0.0-0.2); Platelet Count 76 K/mm3 (150-400); RDW Coefficient Variation 19.4 % (11.7-14.2); RDW Standard Deviation 63.2 fL (35.1-46.3); Red Blood Cell Count 2.45 M/mm3 (3.80-5.20); White Blood Cell Count 31.52 K/mm3 (4.00-11.30)
[2021-07-30 04:01] LABS: BASOPHILS ABSOLUTE AUTO 0.01 K/mm3 (0.00-0.23); BASOPHILS PERCENT AUTO 0 % (0-2); EOSINOPHILS ABSOLUTE AUTO 0.27 K/mm3 (0.00-0.68); EOSINOPHILS PERCENT AUTO 1 % (0-6); IMMATURE GRAN ABSOLUTE AUTO 4.75 K/mm3 (0.00-0.10); IMMATURE GRAN PERCENT AUTO 15 % (0-1); NEUTROPHILS PERCENT AUTO 77 % (41-73)
[2021-07-30 04:19] LABS: Albumin, Blood 1.2 g/dL (3.4-5.0); Anion Gap 8 mmol/L (6-16); Blood Urea Nitrogen 44 mg/dL (8-24); Bun/Creatinine Ratio 30.8 (12.0-20.0); CO2, Blood 28 mmol/L (21-32); Calcium, Blood 8.1 mg/dL (8.5-10.1); Chloride, Blood 97 mmol/L (98-108); Creatinine, Blood 1.43 mg/dL (0.40-1.00); Glomerular Filtration Rate 37 (60-); Glucose, Blood 134 mg/dL (70-99); Phosphorus, Blood 3.3 mg/dL (2.5-4.9); Potassium, Blood 4.8 mmol/L (3.5-5.5); Sodium, Blood 133 mmol/L (136-145)
[2021-07-30 05:22] LABS: BAND PERCENT MAN 12 % (0-8); BASOPHILS PERCENT MAN 0 % (0-2); EOSINOPHILS ABSOLUTE MAN 0.31 K/mm3 (0.00-0.68); EOSINOPHILS PERCENT MAN 1 % (0-6); LYMPHOCYTES ABSOLUTE MAN 0.31 K/mm3 (0.84-5.20); LYMPHOCYTES PERCENT MAN 1 % (21-46); METAMYELOCYTE ABSOLUTE MAN 0.94 K/mm3 (0.00-0.00); METAMYELOCYTE PERCENT MAN 3 % (0-0); MONOCYTES ABSOLUTE MAN 0.94 K/mm3 (0.16-1.47); MONOCYTES PERCENT MAN 3 % (4-13); MYELOCYTE ABSOLUTE MAN 0.31 K/mm3 (0.00-0.00); MYELOCYTE PERCENT MAN 1 % (0-0); NEUTROPHILS ABSOLUTE MAN 28.68 K/mm3 (1.96-9.15); SEG NEUTROPHILS PERCENT MAN 79 % (41-73); TOTAL CELLS COUNTED 100
--- NOTE | 2021-07-30 06:19 | NUR ---
SHIFT SUMMARY PT REMAINS INTUBATED AND SEDATED. NO CHANGES TO VENT SETTINGS. PROPOFOL CONTINUES @ 45MCG'S. LEVOPHED @ 5 MCG/MIN c MAP >65. OGT TO LIS c BILE OUT. PT WITH TWO EPISODES OF EMESIS, SMALL AMNT OF BILE SUCTIONED FROM MOUTH. WOUND VAC c ADEQUATE SUCTION, DRESSING TO BE CHANGED TODAY. BL MARIUSZ'S DRAINING SS FLUID. WEEPING EDEMA SOAKING SHEETS, DRY FLOWS CHANGED MULTIPLE TIMES T/O THE NIGHT. MARC CATH DRAINING KEISHA URINE, OUTPUT INCREASING, 1400 OUT. MEDICATED PT ONE TIME c 50MCG'S FENTANYL DURING BEDBATH, PT GRIMACING AND RR INCREASED TO THE 30'S. NO OTHER SIGNIFICANT CHANGES. WILL CONTINUE TO MONITOR.
--- NOTE | 2021-07-30 07:49 | NUR ---
Assumed care. Report received from nightsarft RN. Pt in bed, sedated and ventilated via ETT. Vent settings: AC/VC 20/350/5/35%. OG tube in place, connected to low intermittent suction. PICC in ERNESTO, IV pump settings: Levophed 6 mcg/min, propofol 45 mcg/kg/min, TPN 55 ml/hr, LR 50 ml/hr, NS 10 ml/hr. Pt has abdominal surgical dressing in place with wound vac, dressing intact, wound vac set to 120 mmhg. MARIUSZ drains in place, L and R lower quadrant, WNL. Wang catheter in place, draining dark/yellow urine. SCD's in place. No acute needs noted at this time, will continue to monitor.
--- NOTE | 2021-07-30 08:05 | NUR ---
Assumed care. Report received from nightshift RN. Pt resting in bed, on 2L 02 via NC. Powerglide in place, IV pump settings: KCl running at 75 ml/hr. Levophed on SB. Pt alert and oriented, able to communicate needs and get up to bedside commode. No acute needs at this time, will continue to monitor.
--- NOTE | 2021-07-30 14:51 | NUR ---
ABD DRESSING CHANGE. CHANGED ABDOMINAL SURGICAL SITE FOAM, DRESSING, AND WOUND VAC CANISTER/TUBING. DRESSINGS CHANGED FOR EACH MARIUSZ DRAIN SITE. ALL DRESSINGS CLEAN, DRY, INTACT. WOUND VAC HAS GOOD SEAL, SET AT 120 MMHG.
--- NOTE | 2021-07-30 18:29 | NUR ---
Wound dressing. After dressing change this afternoon the foam in the wound site above the wound vac line became saturated with blood and devloped a bubble underneath the dressing containing bloody drainage. Contacted Dr. Patel, he advised to turn the wound vac down to 75mmhg and monitor the dressing overnight. If bleeding/drainage persists to the point that the dressing needs to be changed again, wet to dry dressings may be used in lieu of the wound vac if suction cannot be achieved.
--- NOTE | 2021-07-30 18:34 | NUR ---
Shift summary. Pt continues sedated and ventilated via ETT in bed. Vent settings: AC/VC 20/350/5/35%. OG tube in place, connected to low intermittent suction. PICC in ERNESTO, Powerglide in JAN. IV pump settings: levophed 4 mcg/min, propofol 20 mcg/kg/min, TPN 55 ml/hr, LR 50 ml/hr, NS 10 ml/hr. Pt surgical site has new abdominal dressing, wound vac 80mmhg, good seal. MARIUSZ drains L & R lower quadrants WNL, new dressings applied. Wound site developing additional drainage beneath dressing since it was changed, see note. Wang catheter in place, 950 out this shift. Propofol turned off for approximately 1 hour this shift, pt did not awaken and make purposeful movements/follow commands. Pt did open eyes spontaneously, some episodes of upper extremity tremors with internal rotation of shoulders/arms noted, similar to decerebrate posturing. Propofol turned back on at 20 mcg/kg/min.
--- NOTE | 2021-07-30 22:21 | NUR ---
SHIFT ASSESSMENT ASSUMED CARE OF PT @ 1900. REPORT FROM [facility]. PT INTUBATED AND SEDATED. VENT SETTINGS: AC-20/350/35%/ 5 c O2 SATS >95%. PROPOFOL GTT @ 20MCG/KG/MIN. LEVOPHED @ 4MCG/MIN c MAP >65. PT TOLERATING VENT FAIRLY WELL, RR INCREASES TO 30'S c MOVEMENT, MEDICATING c PRN PAIN MEDS PER MAR. OGT TO LIS. ABDOMEN c MIDLINE DRESSING TO WOUND VAC @ 80MMHG, DRESSING c SS FLUID LEAKING OUT OF THE LEFT SIDE, WILL MONITOR CLOSELY. MAY CHANGE DRESSING TONIGHT. BL KENNEDY DRAINS, SS FLUID IN BOTH, DRESSINGS C/D. WEEPING EDEMA PRESENT T/O BUT APPEARS TO BE IMPROVING, NO LONGER SOAKING THROUGH SHEETS. MARC CATH PATENT, DRAINING YELLOW URINE.
[2021-07-31 04:32] LABS: Hematocrit 20.2 % (33.0-51.0); Hemoglobin 6.5 g/dL (11.5-16.0); Mean Corpuscular HGB 29.1 pg (26.0-34.0); Mean Corpuscular HGB Conc 32.2 g/dL (31.5-36.5); Mean Corpuscular Volume 91 fL (80-100); NRBC ABSOLUTE 0.08 K/mm3 (0.00-0.02); NRBC Auto 0.3 /100 WBC (0.0-0.2); Platelet Count 70 K/mm3 (150-400); RDW Standard Deviation 65.1 fL (35.1-46.3); Red Blood Cell Count 2.23 M/mm3 (3.80-5.20); White Blood Cell Count 30.84 K/mm3 (4.00-11.30)
[2021-07-31 04:47] LABS: Albumin, Blood 2.5 g/dL (3.4-5.0); Anion Gap 8 mmol/L (6-16); Blood Urea Nitrogen 46 mg/dL (8-24); Bun/Creatinine Ratio 32.6 (12.0-20.0); CO2, Blood 29 mmol/L (21-32); Calcium, Blood 8.9 mg/dL (8.5-10.1); Chloride, Blood 97 mmol/L (98-108); Creatinine, Blood 1.41 mg/dL (0.40-1.00); Glomerular Filtration Rate 38 (60-); Glucose, Blood 93 mg/dL (70-99); Phosphorus, Blood 2.8 mg/dL (2.5-4.9); Potassium, Blood 4.3 mmol/L (3.5-5.5); Sodium, Blood 134 mmol/L (136-145)
[2021-07-31 04:51] LABS: Mean Platelet Volume 13.5 fL (9.1-12.4)
--- NOTE | 2021-07-31 06:15 | NUR ---
SHIFT SUMMARY PT REMAINS INTUBATED AND SEDATED. NO CHANGES TO VENT SETTINGS. PROPOFOL CONTINUES @ 20MCG'S. WOUND VAC DRESSING STABLE, DID NOT CHANGE DRESSING. KENNEDY DRAINS c SS FLUID OUT. WEEPING EDEMA CONTINUES BUT MUCH LESS THAN THE PRIOR NIGHT. PTS H&H LOW THIS AM, CURRENTLY TRANSFUSING ONE UNIT OF PRBC'S. NO OTHER SIGNIFICANT CHANGES IN PT CONDITION, WILL CONTINUE TO MONITOR CLOSELY.
[2021-07-31 06:21] LABS: BAND PERCENT MAN 18 % (0-8); BASOPHILS ABSOLUTE MAN 0.61 K/mm3 (0.00-0.23); BASOPHILS PERCENT MAN 2 % (0-2); EOSINOPHILS PERCENT MAN 1 % (0-6); LYMPHOCYTES PERCENT MAN 1 % (21-46); METAMYELOCYTE ABSOLUTE MAN 1.23 K/mm3 (0.00-0.00); METAMYELOCYTE PERCENT MAN 4 % (0-0); MONOCYTES ABSOLUTE MAN 1.85 K/mm3 (0.16-1.47); MONOCYTES PERCENT MAN 6 % (4-13); MYELOCYTE ABSOLUTE MAN 1.23 K/mm3 (0.00-0.00); MYELOCYTE PERCENT MAN 4 % (0-0); NEUTROPHILS ABSOLUTE MAN 25.28 K/mm3 (1.96-9.15); SEG NEUTROPHILS PERCENT MAN 64 % (41-73); TOTAL CELLS COUNTED 100
--- NOTE | 2021-07-31 08:30 | NUR ---
ASSUMED CARE REPORT RECIEVED. PT IS INTUBATED AND SEDATED WITH PROPOFOL. VENT SETTINGS AC 20, TV 350, PEEP 5, FIO2 30%. PT WITHDRAWS TO NOXIOUS STIMULI. GRIMMACES TO ORAL CARE/SUCTION. DOES NOT FOLLOW ANY DIRECTIONS. PICC TO ERNESTO IN PLACE WITH LR, CPN, LEVOPHED, AND PROPOFOL INFUSING. SEE FLOWSHEET FOR TITRATIONS. OGT IN PLACE TO LIS WITH GREEN BILE OUTPUT NOTED. MIDLINE ABD WOUND VAC IN PLACE AND LUQ AND RUQ MARIUSZ DRAINS IN PLACE WITH SEROSANGUINOUS OUTPUT NOTED. SKIN FLUSHED AROUND ABDOMEN AND THIGHS. PT WITH WEEPING EDEMA THROUGHOUT. SBW RESTRAINTS IN PLACE. MARC IN PLACE WITH YELLOW OUTPUT NOTED. WILL CONTINUE TO MONITOR.
[2021-07-31 10:13] LABS: Hematocrit 23.5 % (33.0-51.0)
--- NOTE | 2021-07-31 18:02 | NUR ---
SHIFT SUMMARY NO ACUTE CHANGES THIS SHIFT. PT REMAINS INTUBATED AND SEDATED. VENT SETTINGS REMAIN UNCHANGED. PT WITH MINIMAL ETT SECRETIONS. PT WITH MODERATE AMOUNT OF ORAL SECRETIONS THAT ALTERNATED BETWEEN BILE AND BLOODY. OGT REMAINS IN PLACE TO LIS WITH BILE OUTPUT NOTED. DURING SEDATION VACATION THIS AFTERNOON, PT WITHOUT ANY PURPOSEFUL MOVEMENTS. PT CONTINUES TO HAVE OCCASIONAL INTERNAL SHOULDER ROTATIONS WITH TREMORS NOTED TO KASSIE'Evert. PT GRIMMACES WITH ORAL SUCTION. PICC REMAINS IN PLACE TO ERNESTO. LEVOPHED INFUSING AT 4 MCG/MIN, PROPOFOL INFUSING AT 30 MCG/KG/MIN, CPN 55 ML/HR, AND NS TKO. MIDLINE ABD WOUND VAC REMAINS UNCHANGED. MARIUSZ DRAINS REMAIN UNCHANGED. ABDOMEN AND UPPER LEGS REMAIN FLUSHED. MARC REMAINS IN PLACE WITH DARK YELLOW OUTPUT NOTED. SBW RESTRAINTS IN PLACE. VITAL SIGNS REMAIN STABLE. PT SPOUSE AT BEDSIDE THIS AFTERNOON DURING SEDATION VACATION. UPDATED TO CURRENT CONDITON. PT SPOUSE REQUESTING TO SPEAK WITH TOMORROW. WILL CONTINUE TO MONITOR AND REPORT OFF TO ONCOMING RN.
--- NOTE | 2021-07-31 22:26 | NUR ---
SHIFT ASSESSMENT ASSUMED CARE OF PT @ 1900. PT INTUBATED AND SEDATED. VENT SETTINGS: AC-20/350/5/30% c O2 SATS >90%. PROPOFOL @ 30MCG'S. TITRATING LEVOPHED FOR MAP GOAL >65. NO PURPOSEFUL MOVEMENT, WITHDRAWS TO NOXIOUS STIMULI, GRIMACES c TURNS AND ORAL CARE. OGT IN PLACE TO LIS c BILE OUT. MIDLINE ABD WOUND VAC IN PLACE c ADEQUATE SUCTION. BL KENNEDY DRAINS c SS FLUID OUT. WEEPING EDEMA T/O, SKIN PEELING TO BACK AND THIGHS. EDEMA IS SLOWLY IMPROVING. MARC IN PLACE c KEISHA URINE OUT. WILL CONTINUE TO MONITOR.
[2021-08-01 04:02] LABS: Hematocrit 23.5 % (33.0-51.0); Hemoglobin 8.2 g/dL (11.5-16.0); Mean Corpuscular HGB 30.9 pg (26.0-34.0); Mean Corpuscular HGB Conc 34.9 g/dL (31.5-36.5); Mean Corpuscular Volume 89 fL (80-100); NRBC ABSOLUTE 0.24 K/mm3 (0.00-0.02); NRBC Auto 0.8 /100 WBC (0.0-0.2); Platelet Count 91 K/mm3 (150-400); RDW Coefficient Variation 19.6 % (11.7-14.2); RDW Standard Deviation 61.8 fL (35.1-46.3); Red Blood Cell Count 2.65 M/mm3 (3.80-5.20); White Blood Cell Count 31.79 K/mm3 (4.00-11.30)
[2021-08-01 04:26] LABS: Albumin, Blood 2.4 g/dL (3.4-5.0); Anion Gap 9 mmol/L (6-16); Blood Urea Nitrogen 45 mg/dL (8-24); Bun/Creatinine Ratio 30.2 (12.0-20.0); CO2, Blood 28 mmol/L (21-32); Calcium, Blood 8.5 mg/dL (8.5-10.1); Chloride, Blood 96 mmol/L (98-108); Creatinine, Blood 1.49 mg/dL (0.40-1.00); Glomerular Filtration Rate 35 (60-); Glucose, Blood 104 mg/dL (70-99); Phosphorus, Blood 2.3 mg/dL (2.5-4.9); Potassium, Blood 4.4 mmol/L (3.5-5.5); Sodium, Blood 133 mmol/L (136-145); Triglycerides 628 mg/dL (30-160)
[2021-08-01 06:07] LABS: BAND PERCENT MAN 27 % (0-8); BASOPHILS PERCENT MAN 0 % (0-2); EOSINOPHILS PERCENT MAN 0 % (0-6); LYMPHOCYTES ABSOLUTE MAN 0.95 K/mm3 (0.84-5.20); LYMPHOCYTES PERCENT MAN 3 % (21-46); METAMYELOCYTE ABSOLUTE MAN 0.95 K/mm3 (0.00-0.00); METAMYELOCYTE PERCENT MAN 3 % (0-0); MONOCYTES ABSOLUTE MAN 0.95 K/mm3 (0.16-1.47); MONOCYTES PERCENT MAN 3 % (4-13); MYELOCYTE ABSOLUTE MAN 1.27 K/mm3 (0.00-0.00); MYELOCYTE PERCENT MAN 4 % (0-0); NEUTROPHILS ABSOLUTE MAN 27.65 K/mm3 (1.96-9.15); SEG NEUTROPHILS PERCENT MAN 60 % (41-73); TOTAL CELLS COUNTED 100
--- NOTE | 2021-08-01 06:32 | NUR ---
SHIFT SUMMARY NO ACUTE CHANGES IN PT CONDITION. PT REMAINS INTUBATED AND SEDATED. VENT SETTINGS REMAIN THE SAME. PROPOFOL ON SB FOR APPROXIMATELY AN HOUR THIS AM, DURING THAT TIME PTS RR INCREASED TO THE MID 30'S. NO PURPOSEFUL MOVEMENT FROM PT. PTS R EYE WOULD OPEN SPONTANEOUSLY BUT PT WOULD NOT TRACK THIS NURSE NOR OPEN EYE TO COMMAND. PT EXCEPTIONALLY TREMULOUS WHILE SEDATION WAS OFF. PROPOFOL NOW ON @ 25MCG/KG/MIN. LEVOPHED @ 7MCG/MIN c MAP >65. MIDLINE WOUND VAC UNCHANGED. BL KENNEDY DRAINS CONTINUE TO DRAIN SS FLUID. WEEPING EDEMA CONTINUES TO LESSEN BUT SKIN IS EXTREMELY FRAGILE. OGT TO LIS c BILE OUT. MARC CATH DRAINING KEISHA URINE. WILL CONTINUE TO MONITOR, REPORT TO ONCOMING NURSE.
--- NOTE | 2021-08-01 07:14 | NUR ---
Assumed care. Report received from nightsordenae RN. PT in bed, sedated and ventilated via ETT. Vent settings: AC/VC 20/350/5/30%. OG tube in place to low intermittent suction. PT has PICC in ERNESTO, powerglide in JAN, both WNL. IV pump settings: Levophed 7 mcg/min, propofol 25 mcg/kg/min, NS 10 ml/hr x2, TPN 55 ml/hr, sodium phosphate 126 ml/hr. Abdominal surgical site dressing intact, wound vac has good seal, 80 mmhg suction applied. MARIUSZ drains L & R lower quadrants wnl, dressings intact. Wang catheter in place, dark/yellow urine draining. SCD's in place. No acute needs at this time, will continue to monitor.
--- NOTE | 2021-08-01 17:32 | NUR ---
Pt remains on the ventilator today. Her did have a discussion with Dr. Leonard regarding pt's current health issues, and the uncertainty about the future. Her states he is just taking it one day at a time for now. No changes to current plan of care.
--- NOTE | 2021-08-01 18:20 | NUR ---
Shift summary. Pt continues in bed, sedated and ventilated via ETT. Vent settings: AC/VC 20/350/5/30%. OG tube in place to low intermittent suction. PICC in ERNESTO, dressing changed, powerglide in JAN, IV pump settings: Levophed 12 mcg/min, propofol 35 mcg/kg/min, TPN 55 ml/hr, NS 10 ml/hr. Abdominal surgical site dressing intact, wound vac has good seal at 80 mmgh suction. MARIUSZ drains wnl, dressings changed. Wang catheter in place, 270 dark/jamin urine out this shift. Rectal tube in place for lactulose enema. SCD's in place. See shift assessment for further details. Will continue to monitor and report off to nightshift RN.
--- NOTE | 2021-08-01 19:18 | NUR ---
ASSUMED CARE OF PT AT 1915. REPORT RECEIVED AT BEDSIDE. PT PRESENTS IN BED. INTUBATED. AC 20, 350, FIO2 30 PERCENT, PEEP 5. PT TOLERATING VENT WELL WITH PROPOFOL FOR SEDATION. WILL REVIEW CHART AND PLAN OF CARE FOR THIS PT.
--- NOTE | 2021-08-02 00:50 | NUR ---
FULL BEDBATH DONE FOR PT. NOTED ABDOMEN AND THIGHS WITH REDNESS. SKIN TO LOWER BACK, GLUTEALS, COCCXY/SACARAL AREA, THIGHS WITH PEELING SKIN. ESCORIATION ALSO UNDER BREAST. DID PLACE PILLOW CASES TO AREAS OF SKIN CONTACT TO PROTECT INTEGRITY AND TO REDUCE MOISTURE AND HEAT. WILL CONTINUE TO MONITOR PT.
[2021-08-02 04:02] LABS: Hematocrit 25.2 % (33.0-51.0); Hemoglobin 9.1 g/dL (11.5-16.0); Mean Corpuscular HGB 32.2 pg (26.0-34.0); Mean Corpuscular HGB Conc 36.1 g/dL (31.5-36.5); Mean Corpuscular Volume 89 fL (80-100); NRBC ABSOLUTE 0.39 K/mm3 (0.00-0.02); Platelet Count 114 K/mm3 (150-400); RDW Coefficient Variation 19.9 % (11.7-14.2); RDW Standard Deviation 62.4 fL (35.1-46.3); Red Blood Cell Count 2.83 M/mm3 (3.80-5.20)
[2021-08-02 04:21] LABS: Magnesium, Blood 1.8 mg/dL (1.6-2.4)
[2021-08-02 04:55] LABS: Albumin, Blood 1.7 g/dL (3.4-5.0); Albumin/Globulin Ratio 0.5 (0.8-1.8); Bilirubin, Total 7.2 mg/dL (0.1-1.0); Bun/Creatinine Ratio 31.2 (12.0-20.0); Calcium, Blood 8.5 mg/dL (8.5-10.1); Creatinine, Blood 1.6 mg/dL (0.40-1.00); Globulin, Blood 3.7 g/dL (2.2-4.0); Phosphorus, Blood 3.4 mg/dL (2.5-4.9); Potassium, Blood 4.4 mmol/L (3.5-5.5); Total Protein, Blood 5.4 g/dL (6.4-8.2)
[2021-08-02 05:30] LABS: BAND PERCENT MAN 3 % (0-8); BASOPHILS ABSOLUTE MAN 0.77 K/mm3 (0.00-0.23); BASOPHILS PERCENT MAN 2 % (0-2); EOSINOPHILS ABSOLUTE MAN 0.77 K/mm3 (0.00-0.68); EOSINOPHILS PERCENT MAN 2 % (0-6); LYMPHOCYTES ABSOLUTE MAN 1.94 K/mm3 (0.84-5.20); LYMPHOCYTES PERCENT MAN 5 % (21-46); METAMYELOCYTE ABSOLUTE MAN 0.38 K/mm3 (0.00-0.00); METAMYELOCYTE PERCENT MAN 1 % (0-0); MONOCYTES PERCENT MAN 0 % (4-13); MYELOCYTE ABSOLUTE MAN 0.38 K/mm3 (0.00-0.00); MYELOCYTE PERCENT MAN 1 % (0-0); NEUTROPHILS ABSOLUTE MAN 34.62 K/mm3 (1.96-9.15); SEG NEUTROPHILS PERCENT MAN 86 % (41-73); TOTAL CELLS COUNTED 100
--- NOTE | 2021-08-02 06:32 | NUR ---
HAVE DONE A SEDATION VACATION THIS AM. PT DOES NOT MAKE MUCH PURPOSEFUL MOVEMENTS DURING THIS TIME. DOES MOVE HER EXTREMITIES SLIGHTLY DURING THIS TIME. PT HAS BEEN VERY WEEPY FROM ABDOMEN DOWN TO HER THIGHS. SKIN VERY FRAGILE AND RED. HAVE INCREASED FIO2 TO 40 PERCENT THIS NIGHT SECONDARY TO ANY EXERTION OR STIMULI, PT WOULD DESATURATE TO 85-87 PERCENT. THIS HAS BEEN AFFECTIVE. MARIUSZ DRAINS HAVE BEEN DRAINED TWICE EACH, AND STRIPPED. # 1 WITH 100 ML OUT AND # 2 60 ML THIS SHIFT. WOUND VAC REMAINS WITH GOOD SEAL. DRAINS SEROUSAINGEOUS DRAINAGE TO CANISTER. JUST THIS MORNING DID NEED TO INCREASE LEVOPHED FROM 12 MCG'S/MIN TO 13 FOR SOFT BLOOD PRESSURES. WILL ADJUST FURTHER NEEDED. ORDER IS TO RESTART VASOPRESSIN IF LEVOPHED NEEDING TO BE INCREASED TO 14 MCG'S/MIN. WILL CONTINUE TO MONITOR PT, AND WILL REPORT OFF TO ONCOMING RN.
--- NOTE | 2021-08-02 17:14 | NUR ---
No changes in patient's condition today. She remains intubated, and family did agree to change code status to DNR yesterday after an in depth discussion with Dr. Leonard. Reached out to pt's today, he states he is definitely tired today, but continues to remain "cautiously hopeful" for improvement in pt's overall status.
--- NOTE | 2021-08-02 18:51 | NUR ---
Shift summary. PT continues in bed, sedated and ventilated via ETT. Vent settings AC/VC 20/350/5/40%. OG tube in place, clamped for medication administration. PICC in ERNESTO, powerglide in JAN, dressings changed on both sites. IV pump settings: Levophed 12 mcg/min, Vasopressin 0.04 units/min, propofol SB, Fentanyl INTERNATIONAL ACCOUNT MANAGER 12 mcg/hr, NS 10 ml/hr x2. Abdominal surgical site dressing intact, wound vac at 80 mmhg, good seal. MARIUSZ drains in place, dressings intact, wnl. Wang catheter in place, draining dark/jamin urine. Rectal tube in place. Pt still very edematous with large areas of broken/weeping blisters and reddened skin throughout lower torso/upper thighs and catheter site. Skin sloughing off in large patches. Photos in chart. Dr. Leonard consulted burn center surgeon at [facility] as well. Sedation put on SB today, Pt did not wake up or make any purposeful movements. See shift assessment for further details, will continue to monitor and report off tonmichael BURNETTE.
--- NOTE | 2021-08-02 20:53 | NUR ---
ASSUMPTION OF CARE RECEIVED REPORT FROM MAU BURNETTE AT 1915. PATIENT INTUBATED, SEDATION OF PROPOFOL AND FENTANYL, VASO AND LEVOPHED INFUSING FOR MAP ABOVE 65. 02 SATS MID TO LOW 80'S, 100% FIO2 GIVEN AND SUCTIONING PROVIDED. VENT SETTINGS 20/350/5/40%. PATIENT GRIMACES TO PHYSICAL STIMULI. WEEPING EDEMA NOTED THROUGHOUT CYDNEY AND BLE. WEEPING THROUGH PICC AND POWERGLIDE DRESSINGS. SKIN RED AND PEELING ALL OVER ABD AND LEGS. ABD IS FIRM, DISTENDED WITH MIDLINE WOUND VAC AND TWO MARIUSZ DRAINS BOTH RIGHT AND LEFT LOWER QUADRANTS. MARC CATHETER WITH CLEAR, YELLOW URINE. RECTAL TUBE WITH RED DRAINAGE. INCREASED FIO2 TO 50% AT 2020 TO KEEP 02 SATS ABOVE 90%. WILL REVIEW ORDERS AND TREAT PRESCRIBED.
[2021-08-03 04:25] LABS: Hematocrit 26.1 % (33.0-51.0); Hemoglobin 9.5 g/dL (11.5-16.0); Mean Corpuscular HGB Conc 36.4 g/dL (31.5-36.5); Mean Corpuscular Volume 88 fL (80-100); NRBC Auto 1.3 /100 WBC (0.0-0.2); Platelet Count 103 K/mm3 (150-400); RDW Coefficient Variation 19.4 % (11.7-14.2); RDW Standard Deviation 59.7 fL (35.1-46.3); Red Blood Cell Count 2.97 M/mm3 (3.80-5.20); White Blood Cell Count 46.09 K/mm3 (4.00-11.30)
[2021-08-03 05:24] LABS: Albumin, Blood 1.4 g/dL (3.4-5.0); Albumin/Globulin Ratio 0.4 (0.8-1.8); Bilirubin, Total 6.8 mg/dL (0.1-1.0); Bun/Creatinine Ratio 29.4 (12.0-20.0); Calcium, Blood 8.4 mg/dL (8.5-10.1); Creatinine, Blood 1.77 mg/dL (0.40-1.00); Globulin, Blood 3.9 g/dL (2.2-4.0); Potassium, Blood 3.9 mmol/L (3.5-5.5); Total Protein, Blood 5.3 g/dL (6.4-8.2)
[2021-08-03 05:50] LABS: BAND PERCENT MAN 18 % (0-8); BASOPHILS PERCENT MAN 0 % (0-2); EOSINOPHILS ABSOLUTE MAN 0.46 K/mm3 (0.00-0.68); EOSINOPHILS PERCENT MAN 1 % (0-6); LYMPHOCYTES ABSOLUTE MAN 2.76 K/mm3 (0.84-5.20); LYMPHOCYTES PERCENT MAN 6 % (21-46); METAMYELOCYTE ABSOLUTE MAN 1.38 K/mm3 (0.00-0.00); METAMYELOCYTE PERCENT MAN 3 % (0-0); MONOCYTES ABSOLUTE MAN 0.46 K/mm3 (0.16-1.47); MONOCYTES PERCENT MAN 1 % (4-13); MYELOCYTE ABSOLUTE MAN 0.92 K/mm3 (0.00-0.00); MYELOCYTE PERCENT MAN 2 % (0-0); NEUTROPHILS ABSOLUTE MAN 40.09 K/mm3 (1.96-9.15); SEG NEUTROPHILS PERCENT MAN 69 % (41-73); TOTAL CELLS COUNTED 100
--- NOTE | 2021-08-03 06:25 | NUR ---
SHIFT SUMMARY PATIENT REMAINS INTUBATED WITH VENT SETTINGS 20/350/5/50%, 02 SATS ABOVE 90%. OG CLAMPED. BILAT ABD J/PS WITH S/S DRAINAGE. WOUND VAC REMAINED INTACT TO MID ABD. WEEPING EDEMA THROUGH OUT, WITH SLUFFING SKIN CONTINUING. MARC CATHETER WITH CLEAR, KEISHA URINE. RECTAL TUBE REMAINS FOR LACTULOSE ENEMAS, NO BM THIS SHIFT. B/P WITH MAPS ABOVE 65 WITH LEVOPHED AND VASOPRESSIN INFUSING. WILL CONTINUE TO MONITOR AND REPORT TO ONCOMING RN.
[2021-08-03 06:48] LABS: International Normalized Ratio 2.29; Prothrombin Time Results 22.8 Sec (9.7-11.5)
--- NOTE | 2021-08-03 07:05 | NUR ---
Assumed care. Report received from nightsildenae RN. Pt in bed, sedated and ventilated via ETT. Vent settings: AC/VC 20/350/5/50%. OG tube in place, clamped. PICC in ERNESTO, Powerglide in JAN. IV pump settings: Vasopressin 0.04 units/min, Levophed 14 mcg/min, Propofol 15 mcg/kg/min, Fentanyl DIESEL ENGINE FITTER 12 mcg/hr, NS 10 ml/hr x3. Abdominal surgery dressing intact, wound vac @ 80 mmhg, good seal. MARIUSZ drains in place, WNL. Wang catheter in place. Rectal tube in place. No acute needs noted at this time, will continue to monitor.
[2021-08-03 09:05] LABS: Test Name PTT
[2021-08-03 09:34] LABS: Result 62.8
--- NOTE | 2021-08-03 10:18 | NUR ---
HEMATOLOGY REPORT. PTT 62.8.
[2021-08-03 10:35] LABS: Base Excess Venous -5.7 mmol/L; Bicarbonate Venous 19.9 mmol/L (24.0-30.0); PCO2 Venous 41.9 mmHg (38-42); PO2 Venous 88.9 mmHg (38-42)
--- NOTE | 2021-08-03 10:40 | NUR ---
PT TAKEN TO CT AT THIS TIME.
[2021-08-03 11:43] LABS: Vancomycin, Trough 31.2 ug/mL (5.0-10.0)
--- NOTE | 2021-08-03 14:21 | NUR ---
After speaking to bedside RN Joey, placed a call to pt's to check on him, as yesterday was a hard day according to Joey. Pt is not improving; her overall condition has significantly worsened over the past 24 hrs. WBC count increasing, and no response from pt, even with propofol turned off. She is only responding to verbal stimuli. Pt's Nathan stated he doesn't want to talk on the phone today; he just wants to "spend time with her" today. He does sound very quiet and subdued today. Palliative care will remain available.
--- NOTE | 2021-08-03 18:27 | NUR ---
Shift summary. Pt continues sedated and on ventilator. Vent settings: AC/VC 20/350/5/60%, Fi02 increased by 10% this shift. OG tube in place to low intermittent suction, PT meds on hold per Dr. Leonard for aspiration risk. PICC in ERNESTO, Powerglide in JAN. IV pump settings: Levophed 25 mcg/min, Vasopressin 0.04 units/min, propofol 15 mcg/kg/min, Fentanyl TRAVEL AGENCY MANAGER 50 mcg/hr, NS 10 ml/hr x3. Dressings on abdominal surgical site and MARIUSZ drains changed today, abdominal dressing wound vac @ 80mmhg, good seal. Wang catheter in place, 450 out this shift, dark/jamin. Rectal tube in place. Doppler BP readings taken during shift, see note. See shift assessment for further details, will continue to monitor and report off to nightshift RN.
--- NOTE | 2021-08-03 18:39 | NUR ---
Doppler systolic BPs. 1230: 120 1330: 115 1430: 118 1530: 116 1630: 114 1745: 120
--- NOTE | 2021-08-03 20:00 | NUR ---
ASSUMPTION OF CARE RECEIVED REPORT AT 1900 FROM JEM BURNETTE. ASSUMED CARE OF PATIENT. INTUBATED WITH VENT SETTINGS AC 20/350/5/60%, SUCTIONING COPIOUS AMOUNT OF THIN, RED SPUTUM VIA ETT AND ORALLY. SEDATED WITH PROPOFOL AND FENTANYL, DOES NOT RESPOND TO STIMULI, WEAK COUGH WITH SUCTION. ABD WOUND WITH WOUND VAC IN PLACE, MARIUSZ X2 WITH S/S DRAINAGE. OG TO LIS WITH DARK DRAINAGE NOTED. SKIN RED, EDEMATOUS AND WEEPING, SKIN SLUFFING ON BILAT UPPER AND LOWER EXTREMITIES, ABD, AND BACK. BLOOD PRESSURES MANUALLY OBTAINED WITH DOPPLER. LEVOPHED AND VASOPRESSIN INFUSING. MARC PATENT AND DRAINING CLEAR, YELLOW URINE. RECTAL TUBE WITH RED LIQUID DRAINAGE. ORDERS REVIEWED, PO MEDICATIONS HELD, ORAL CARE PROVIDED. WILL TREAT PRESCRIBED.
--- NOTE | 2021-08-04 00:10 | NUR ---
BLOOD PRESSURE MANUAL BLOOD PRESSURES OBTAINED RADIALLY BY USE OF DOPPLER. 1999 SBP 115 2200 SBP 110 0000 SBP 100.
--- NOTE | 2021-08-04 04:04 | NUR ---
REASSESSMENT NO CHANGES TO VENT SETTINGS OR DRIPS. CONTINUING TO DOPPLER RADIAL BLOOD PRESSURES WITH CONTINUOUS 100/DOPPLER READING. NO OTHER ACUTE CHANGES AT THIS TIME.
--- NOTE | 2021-08-04 05:52 | NUR ---
SHIFT SUMMARY VENT SETTINGS CURRENTLY 20/350/5/60%. UNABLE TO OBTAIN AN ACCURATE SP02 READING. LEVOPHED AND VASOPRESSIN INFUSING WITH BLOOD PRESSURES DOPPLERED RADIALLY. PURPLE COLOR NOTED THIS AM TO FINGERS AND BILAT FEET. JPX2 WITH PURULENT DRAINAGE. WOUND VAC REMAINS INTACT TO MID ABD. MARC WITH CLEAR, YELLOW URINE. RECTAL TUBE WITH LACTULOSE ENEMAS GIVEN. NO BOWEL MOVEMENT NOTED. OG TO LIS, DARK DRAINAGE IN SUCTION TUBE. WILL CONTINUE TO MONITOR AND REPORT TO ONCOMING RN.
[2021-08-04 05:53] LABS: Vancomycin, Random 30.8 ug/mL
--- NOTE | 2021-08-04 08:15 | NUR ---
ASSUMED CARE REPORT RECIEVED. PT IS INTUBATED AND SEDATED. VENT SETTINGS AC 20, TV 350, PEEP 5, FIO2 80%. PT WITH MINIMAL ETT SECRETIONS WITH SUCTION. PT WITH OCCASIONAL BLOOD TINGED LIQUID OUTPUT FROM ORAL CAVITY. OGT IN PLACE TO LIS. PICC TO ERNESTO IN PLACE WITH LEVOPHED INFUSING AT 25 MCG/MIN, PROPOFOL 15 MCG/KG/MIN, FENTANYL DRY KILN WORKER 50 MCG/HR, AND VASOPRESSIN 0.04 UNITS/HR. MARC IN PLACE WITH DARK YELLOW OUTPUT NOTED. RECTAL TUBE IN PLACE. MIDLINE ABD WOUND VAC C/D/I. LUQ AND ERNESTO MARIUSZ DRAINS IN PLACE. PT WITH SEVERE WHEEPING EDEMA AND MOTTLING NOTED. BPS VIA DOPPLER AT THIS TIME. WILL CONTINUE TO MONITOR.
[2021-08-04 08:32] LABS: Base Excess Venous -19.2 mmol/L; Bicarbonate Venous 10.8 mmol/L (24.0-30.0); PCO2 Venous 38.3 mmHg (38-42); pH Blood Venous 7.07 (7.34-7.37)
--- NOTE | 2021-08-04 08:32 | NUR ---
DOPPLER BP 70/0
--- NOTE | 2021-08-04 08:34 | NUR ---
UPDATE DR CLEMENT AT BEDSIDE. UPDATED TO PT CONDITION. NO NEW ORDERS AT THIS TIME. PT WITH WORSENING DOPPLER BP'S AND UNABLE TO OBTAIN ACCURATE SPO2 READINGS. PT AFSHIN CALLED AND UPDATED. AFSHIN TO COME IN TO SEE PT THIS AM.
[2021-08-04 08:49] LABS: Hematocrit 25.5 % (33.0-51.0); Hemoglobin 8.3 g/dL (11.5-16.0); Mean Corpuscular HGB 31.1 pg (26.0-34.0); Mean Corpuscular HGB Conc 32.5 g/dL (31.5-36.5); NRBC ABSOLUTE 2.99 K/mm3 (0.00-0.02); NRBC Auto 5.4 /100 WBC (0.0-0.2); Platelet Count 78 K/mm3 (150-400); RDW Coefficient Variation 20.4 % (11.7-14.2); RDW Standard Deviation 67.1 fL (35.1-46.3); Red Blood Cell Count 2.67 M/mm3 (3.80-5.20)
[2021-08-04 09:00] LABS: Mean Corpuscular Volume 96 fL (80-100)
[2021-08-04 09:11] LABS: BAND PERCENT MAN 28 % (0-8); BASOPHILS PERCENT MAN 0 % (0-2); EOSINOPHILS ABSOLUTE MAN 1.09 K/mm3 (0.00-0.68); EOSINOPHILS PERCENT MAN 2 % (0-6); LYMPHOCYTES ABSOLUTE MAN 2.19 K/mm3 (0.84-5.20); LYMPHOCYTES PERCENT MAN 4 % (21-46); METAMYELOCYTE ABSOLUTE MAN 2.19 K/mm3 (0.00-0.00); METAMYELOCYTE PERCENT MAN 4 % (0-0); MONOCYTES ABSOLUTE MAN 0.54 K/mm3 (0.16-1.47); MONOCYTES PERCENT MAN 1 % (4-13); MYELOCYTE ABSOLUTE MAN 6.03 K/mm3 (0.00-0.00); MYELOCYTE PERCENT MAN 11 % (0-0); NEUTROPHILS ABSOLUTE MAN 42.27 K/mm3 (1.96-9.15); PROMYELOCYTE ABSOLUTE MAN 0.54 K/mm3 (0.00-0.00); PROMYELOCYTE PERCENT MAN 1 % (0-0); SEG NEUTROPHILS PERCENT MAN 49 % (41-73); TOTAL CELLS COUNTED 100
[2021-08-04 09:20] LABS: Albumin/Globulin Ratio 0.3 (0.8-1.8); Alk Phos 473 U/L (50-136); Anion Gap 19 mmol/L (6-16); Aspartate Aminotrans (AST/SGOT 475 U/L (12-37); Blood Urea Nitrogen 48 mg/dL (8-24); Bun/Creatinine Ratio 24.2 (12.0-20.0); CO2, Blood 13 mmol/L (21-32); Chloride, Blood 90 mmol/L (98-108); Creatinine, Blood 1.98 mg/dL (0.40-1.00); Globulin, Blood 3.5 g/dL (2.2-4.0); Glomerular Filtration Rate 25 (60-); Glucose, Blood 34 mg/dL (70-99); Potassium, Blood 5.5 mmol/L (3.5-5.5); Sodium, Blood 122 mmol/L (136-145); Total Protein, Blood 4.5 g/dL (6.4-8.2)
--- NOTE | 2021-08-04 09:55 | NUR ---
FAMILY AT BEDSIDE M[facility] FAMILY MEMBERS AT BEDSIDE. DR CLEMENT AT BEDSIDE TO OFFER UPDATE. PT WITH OCCASIONAL ECTOPY NOTED ON MONITOR. SBP 70/DOPPLER. FAMILY AWARE OF POOR PROGNOSIS. WILL CONTINUE TO MONITOR.
--- NOTE | 2021-08-04 10:49 | NUR ---
Call back - Family were at bedside. Brief time given to reminisce about pt. Family chuckled appropriately as they reflected on their loved one. Pt's spouse appeared to be accepting of pt's soon-coming demise. Verbal supplication supplied for all present. Family tearful and grateful for interventions.
--- NOTE | 2021-08-04 13:40 | NUR ---
FINAL DISCHARGE PT NOTED TO NARAYAN DOWN TO HR OF 20'S FROM 60'S. UNABLE TO PALPATE ANY PULSES. PT RHYTHM PEA. TIME OF 1313, PRONOUNCED BY VASILE PATEL. PT SPOUSE AND OTHER FAMILY MEMBERS AT BEDSIDE. THEY DECIDED HOME TO BE PONTIAC. ALL PT BELONGINGS SENT HOME WITH PT SPOUSE. DR CLEMENT NOTIFIED.
== END 2021-08-04 13:13 | DRG 853 ==
LOC: ER 12:19 → ERHOLD 17:38 → ICUE 17:38 → ICUW 17:38 → SURS 07-20 15:37 → ICUE 07-23 19:45
PROVIDERS: Family Medicine; Hospitalist; Internal Medicine; Internal Medicine Critical Care Medicine; Pharmacist; Physician Assistant; Surgery; ADMIT Internal Medicine
PROC: 02HV33Z Insertion of Infusion Device into Superior Vena Cava, Percutaneous Approach (ICD-10-PCS; 2021-07-11)
PROC: 0DTF0ZZ Resection of Right Large Intestine, Open Approach (ICD-10-PCS; principal; 2021-07-11 16:15)
PROC: 0DB80ZZ Excision of Small Intestine, Open Approach (ICD-10-PCS; 2021-07-11 16:15)
PROC: 06HY33Z Insertion of Infusion Device into Lower Vein, Percutaneous Approach (ICD-10-PCS; 2021-07-17)
PROC: 0W9G00Z Drainage of Peritoneal Cavity with Drainage Device, Open Approach (ICD-10-PCS; 2021-07-26)
PROC: 0BH18EZ Insertion of Endotracheal Airway into Trachea, Via Natural or Artificial Opening Endoscopic (ICD-10-PCS; 2021-07-26)
PROC: 5A1955Z Respiratory Ventilation, Greater than 96 Consecutive Hours (ICD-10-PCS; 2021-07-26)
DX: A41.9 Sepsis, unspecified organism (principal); R65.21 Severe sepsis with septic shock; K63.1 Perforation of intestine (nontraumatic); J18.9 Pneumonia, unspecified organism; J96.01 Acute respiratory failure with hypoxia; G92.8 Other toxic encephalopathy; K65.2 Spontaneous bacterial peritonitis; N17.9 Acute kidney failure, unspecified; E87.2 Acidosis; E87.0 Hyperosmolality and hypernatremia; B37.0 Candidal stomatitis; I46.8 Cardiac arrest due to other underlying condition; I48.0 Paroxysmal atrial fibrillation; Z66 Do not resuscitate; I25.10 Atherosclerotic heart disease of native coronary artery without angina pectoris; I10 Essential (primary) hypertension; J44.9 Chronic obstructive pulmonary disease, unspecified; F15.10 Other stimulant abuse, uncomplicated; Z95.1 Presence of aortocoronary bypass graft; Z79.899 Other long term (current) drug therapy; Z79.82 Long term (current) use of aspirin; F11.10 Opioid abuse, uncomplicated; Z86.16 Personal history of COVID-19; K70.30 Alcoholic cirrhosis of liver without ascites; D69.6 Thrombocytopenia, unspecified; E87.6 Hypokalemia; E83.42 Hypomagnesemia; D75.82 Heparin induced thrombocytopenia (HIT); T45.515A Adverse effect of anticoagulants, initial encounter; E83.51 Hypocalcemia; E83.39 Other disorders of phosphorus metabolism; Z78.1 Physical restraint status
CPT/HCPCS: 31500; 31720; 36415; 36430; 36556; 36569; 36600; 49083; 70450; 71045; 71046; 71260; 74176; 74177; 76705; 80048; 80053; 80069; 80202; 81001; 82140; 82330; 82607; 82728; 82746; 82803; 82947; 83540; 83550; 83605; 83690; 83735; 83880; 84100; 84132; 84478; 85014; 85018; 85025; 85027; 85610; 85730; 86022; 86060; 86140; 86850; 86900; 86901; 86920; 86923; 87040; 87070; 87075; 87076; 87077; 87081; 87086; 87103; 87106; 87185; 87186; 87205; 87430; 88307; 92526; 92610; 93306; 93308; 93321; 94002; 94003; 94640; 94660; 94762; 96374; 96375; 97110; 97161; 97166; 97530; 99285-25; A9270; C1751; C1894; C9113; J0360; J0610; J1100; J1170; J1450; J1644; J1650; J1940; J2060; J2185; J2250; J2310; J2370; J2405; J2543; J2704; J2765; J3010; J3370; J3411; J3465; J3475; J3480; J7030; J7050; J7060; J7070; J7120; J7131; J7626; P9016; P9046; Q9967; U0004